=== PATIENT | female | born 1990 | race Caucasian/White ===

== ENCOUNTER 2019-12-11 16:52 | Emergency (ER) | payer OTHER, SELFPAY ==
[2019-12-11 17:00] VITALS: BP 123/71; PULSE 89; RESP 16; TEMP 36.8; O2SAT 98
--- NOTE | 2019-12-11 17:56 | ED.GENADULT ---
HPI - General Adult General Chief complaint: Skin/Abscess/Foreign Body Stated complaint: sore on left arm Time Seen by Provider: 12/11/19 17:56 Source: patient and RN notes reviewed Mode of arrival: ambulatory Limitations: no limitations History of Present Illness HPI narrative: 29-year-old female presents with complaints of a sore to LT forearm with itching, redness, warmth, tenderness, and swelling for 1 day. Intermittent clear drainage earlier, none currently. Increase redness and warmth over the past 10 hours. Benadryl topical with no relief. Denies radiation of tenderness or swelling. Rossy says redness has extended into inner forearm over the past 10 hours. RT hand is dominant hand. Exacerbating factor consist of palpation of area. Denies open areas. Denies fever or chills. Denies diaherra, nausea, vomiting, and abdominal pain. Tolerating po intake well. Denies headaches, weakness, fatigue, myalgia, or facial swelling. Denies chest pain or dyspnea. Denies cough, rhinorrhea, congestion, sore throat. Denies recent traveling. Denies concern for COVID-19 or exposures been home since [id number] order except for essential household needs, working, and return home. Some parts of this dictation were generated by voice recognition software and may contain typographical and/or grammatical inaccuracies. Related Data Allergies Allergy/AdvReac Type Severity Reaction Status Date / Time No Known Allergies Allergy Unverified 01/16/19 18:29 Review of Systems Review of Systems: Narrative: CONSTITUTIONAL: Denies fever, chills, sweats. EYES: Denies visual changes, redness, discharge. ENT: Denies rhinorrhea, congestion, sore throat, otalgia. CARDIOVASCULAR: Denies chest pain, palpitations, edema. RESPIRATORY: Denies dyspnea, wheezing, cough. GASTROINTESTINAL: Denies abdominal pain, nausea, vomiting, diarrhea. GENITOURINARY: Denies dysuria, hematuria, abnormal discharge. SKIN: Complains of a sore to LT lower forearm with itching, redness, warmth, tenderness, and swelling. Denies open areas or drainage. MUSCULOSKELETAL: Denies acute back pain, joint pain, or myalgia. NEUROLOGIC: Denies numbness or focal weakness. PSYCHIATRIC: Denies anxiety or depression. All systems reviewed & are unremarkable except as noted in HPI and below. PMFSH Past Medical History Medical History (Updated 12/12/19 @ 00:00 by Urszula Casper) delivery delivered Surgical History Surgical History (Updated 12/11/19 @ 18:32 by OMAR Beltran) H/O section X1 Family History Family History (Updated 12/11/19 @ 18:33 by OMAR Beltran) Father Diabetes mellitus Mother Alive and well Social History Social History (Updated 12/11/19 @ 18:33 by OMAR Beltran) Smoking status: Never smoker Second hand tobacco smoke exposure: Yes Alcohol intake: current Substance use: never Living arrangements: with family Occupation/Education: occupation Gender identity (if verbalized by the patient): Female Comments At time of signature, agree with nurse past medical, surgical, social, and family history. There is no relevant family history pertinent to the presenting complaint. Exam Narrative: Exam Narrative: GENERAL: This is a well-nourished, well-developed patient, in no apparent distress. HEAD: normocephalic, atraumatic. EYES: PERRL. Sclera clear/white. Vision is grossly intact. CARDIOVASCULAR: Regular rate and rhythm without murmurs, gallops, or rubs. RESPIRATORY: Clear to auscultation. Breath sounds equal bilaterally. No wheezes, rales, or rhonchi. GASTROINTESTINAL: Abdomen soft, non-tender, nondistended. Bowel sounds are active. No hepato-splenomegaly, or palpable masses. No guarding. SKIN: warm, left lower posterior forearm with 0.4cm scabbed over area with mild-moderate erythema and warmth, no fluctuation, I&D not necessary at this time. 6.5cm by 8cm surrounding Cellulitis streaking into
== END 2019-12-11 18:10 | disposition home or self-care (01) ==
PROVIDERS: Emergency Provider Nurse Practitioner Family; PCP Nurse Practitioner Family
DX: S50.862A Insect bite (nonvenomous) of left forearm, initial encounter (principal); L03.114 Cellulitis of left upper limb; W57.XXXA Bitten or stung by nonvenomous insect and other nonvenomous arthropods, initial encounter
CPT/HCPCS: 99213; G0463

== ENCOUNTER 2021-03-03 11:02 | Emergency (ER) | payer OTHER, SELFPAY ==
[2021-03-03 11:10] VITALS: BP 141/79; PULSE 100; RESP 18; TEMP 36.5; O2SAT 100
--- NOTE | 2021-03-03 11:24 | ED.URI ---
HPI - URI/Sore Throat General Chief Complaint: Upper Respiratory Infection Stated Complaint: sore throat Time Seen by Provider: 03/03/21 11:24 Source: patient History of Present Illness HPI Narrative: woke up with sore throat today. no trouble swallowing. MD elicited complaint: sore throat Related Data Allergies Allergy/AdvReac Type Severity Reaction Status Date / Time No Known Allergies Allergy Verified 03/03/21 11:39 Review of Systems Review of Systems: CONSTITUTIONAL: Denies fever, chills, or sweats. EYES: Denies visual changes, redness, or discharge. ENT: Denies rhinorrhea, congestion, sore throat, or otalgia. CARDIOVASCULAR: Denies chest pain, palpitations, or edema. RESPIRATORY: Denies cough or dyspnea. GASTROINTESTINAL: Denies abdominal pain, nausea, vomiting, or diarrhea. GENITOURINARY: Denies dysuria or hematuria. SKIN: Denies rash or itching. MUSCULOSKELETAL: Denies back pain, joint pain, or myalgia. NEUROLOGIC: Denies headache, numbness, or weakness. PSYCHIATRIC: Denies anxiety or depression. [facility] Past Medical History Medical History (Updated 03/03/21 @ 11:27 by OMAR Rolon) delivery delivered Surgical History Surgical History (Updated 12/11/19 @ 18:32 by OMAR Beltran) H/O section X1 Family History Family History (Updated 12/11/19 @ 18:33 by OMAR Beltran) Father Diabetes mellitus Mother Alive and well Social History Social History (Updated 12/11/19 @ 18:33 by OMAR Beltran) Smoking status: Never smoker Second hand tobacco smoke exposure: Yes Alcohol intake: current Substance use: never Gender identity (if verbalized by the patient): Female Comments At time of signature, agree with nursing past medical, surgical, social and family history. There is no relevant family history pertinent to the presenting complaint Exam Narrative: GENERAL: Well-appearing, well-nourished, and in no acute distress. HEAD: Normocephalic, atraumatic. EYES: PERRLA and EOMI. ENT: Nares clear, no rhinorrhea or epistaxis. Mucous membranes moist. NECK: Supple. CHEST: Clear to auscultation. No respiratory distress. HEART: Regular rate and rhythm. No murmur heard. Normal peripheral pulses. ABDOMEN: Soft, nontender, nondistended, normal active bowel sounds. EXTREMITIES: Normal range of motion. No edema. SKIN: Warm, dry, no rash. NEURO: No focal deficits. Alert and oriented x3. [place] Coma Scale Eye Opening: Spontaneous 4 [place] Coma Scale Motor: Obeys Commands 6 [place] Coma Scale Verbal: Oriented 5 [place] Coma Scale Total 15 Course Vital Signs Vital signs: Vital Signs Temperature 36.5 C 03/03/21 11:10 Pulse Rate 100 03/03/21 11:10 Respiratory Rate 18 03/03/21 11:10 Blood Pressure 141/79 H 03/03/21 11:10 Pulse Oximetry 100 03/03/21 11:10 Temperature 36.5 C 03/03/21 11:10 Pulse Rate 100 03/03/21 11:10 Respiratory Rate 18 03/03/21 11:10 Blood Pressure 141/79 H 03/03/21 11:10 Pulse Oximetry 100 03/03/21 11:10 MDM - URI/Sore Throat Differential Diagnosis Differential diagnosis: Likely upper respiratory infection, croup, otitis media, sinusitis, viral infection, bronchitis, influenza and pharyngitis Medical Records Attestation: I reviewed the patient's medical records. Lab Data Attestation: I reviewed the patient's lab results. Labs: Strep Screen Positive Group A Strep *(Reference Range: Negative)* Critical Care Time Critical Care Time Critical Care Time: No Discharge Plan Discharge Clinical Impression: Pharyngitis Patient Disposition: Home, Self-Care Condition: Stable Instructions: Antibiotic Form, Pharyngitis (ED) Additional Instructions: Increase fluids especially juices and water [id number] cough and cold medicine of your choice for your symptoms Salt water gargles, throat lozenges or throat sprays as daquan
== END 2021-03-03 11:45 | disposition home or self-care (01) ==
PROVIDERS: Emergency Provider Nurse Practitioner Family; PCP Nurse Practitioner Family
DX: J02.9 Acute pharyngitis, unspecified (principal)
CPT/HCPCS: 87880; 99213; G0463

== ENCOUNTER 2021-04-04 15:38 | Outpatient (CLI) | payer OTHER, SELFPAY ==
[2021-04-04 19:27] LABS: Basophils Percent Auto 0.4 % (0.2-1.2); Eosinophils Absolute Auto 0.1 K/mm3 (0-0.3); Eosinophils Percent Auto 0.8 % (0-4.4); Hematocrit 36.6 % (37.0-47.0); Hemoglobin 12.5 g/dL (12.0-15.0); Immature Granulocyte Absolute 0.02 K/mm3 (0.00-0.031); Immature Granulocyte Percent A 0.3 % (0-0.5); Lymphocytes Absolute Auto 2.55 K/mm3 (0.9-3.2); Lymphocytes Percent Auto 33.1 % (18.3-44.2); Mean Corpuscular HGB Conc 34.2 g/dl (32-36); Mean Corpuscular Hemoglobin 29.4 pg (26-34); Mean Corpuscular Volume 86.1 fl (80-100); Mean Platelet Volume 10.2 fl (7.4-10.4); Monocytes Absolute Auto 0.7 K/mm3 (0.1-0.6); Monocytes Percent Auto 9.4 % (2.6-8.5); Neutrophils Absolute Auto 4.3 K/mm3 (1.3-6.7); Platelet Count Result 341 k/mm3 (150-375); Red Blood Count 4.25 M/mm3 (4.2-5.4); White Blood Count 7.7 K/mm3 (4.5-10.0)
[2021-04-04 19:39] LABS: Add Urine Microscopic? YES; Appearance Urine Clear (Clear); Bacteria Urine Trace /hpf; Bilirubin Urine Negative (Negative); Blood Urine Negative (Negative); Color Urine Yellow (Yellow); Glucose Urine UA Negative (Negative); Ketones Urine Negative (Negative); Leukocyte Esterase Ur Negative LEU/UL (NEGATIVE); Mucus Urine Rare /lpf; Nitrate Urine Negative (Negative); Protein Urine Negative (Negative); Specific Grav Ur 1.027 (1.001-1.035); Squamous Epithelial Cell Urine Many /hpf (Few); WBC Urine 0-3 /hpf (0-3)
[2021-04-04 20:32] LABS: Hepatitis B Surface Antigen Negative (Negative)
[2021-04-04 20:42] LABS: HIV 1/2 Ab P24 Ag Result Negative (Negative)
[2021-04-04 20:49] LABS: Hepatitis C Virus Antibody Negative (Negative)
[2021-04-06 10:40] LABS: Rapid Plasma Reagin Non-Reactive (NonReactive)
[2021-04-08 16:14] LABS: Hematocrit 37.7 % (35.0-45.0); Hemoglobin 12.7 g/dL (11.7-15.5); MCH 30.6 pg (27.0-33.0); MCV 90.5 fL (80.0-100.0); RDW 13.1 % (11.0-15.0); Red Blood Cell Count 4.17 Mill/uL (3.80-5.10)
== END 2021-04-04 15:39 | disposition home or self-care (01) ==
LOC: ANHBWCLAB 15:39
PROVIDERS: PCP Nurse Practitioner Family; Visit Provider Obstetrics & Gynecology
DX: Z34.90 Encounter for supervision of normal pregnancy, unspecified, unspecified trimester (principal)
CPT/HCPCS: 36415; 81001; 83021; 84443; 85025; 86592; 86703; 86787; 86803; 86900; 86901; 87086; 87340; G0432

== ENCOUNTER 2021-04-09 12:26 | Outpatient (CLI) | payer OTHER, SELFPAY ==
[2021-04-09 13:39] LABS: Vitamin D 25 Hydroxy 41.9 ng/mL
[2021-04-09 14:00] LABS: Rubella IgG Antibody 21.1 IU/ML
[2021-04-09] MEDS: RHO(D) IMMUNE GLOBULIN 300 MCG/2 ML SYRINGE IM (16:27)
== END 2021-04-09 12:27 | disposition home or self-care (01) ==
LOC: ANHLAB 12:29
PROVIDERS: PCP Nurse Practitioner Family; Visit Provider Obstetrics & Gynecology
DX: O26.899 Other specified pregnancy related conditions, unspecified trimester (principal); Z67.91 Unspecified blood type, Rh negative; Z3A.00 Weeks of gestation of pregnancy not specified
CPT/HCPCS: 36415; 82306; 85461; 86762; 90384; 96372; J2790

== ENCOUNTER 2021-06-08 10:42 | Outpatient (CLI) | payer OTHER, SELFPAY ==
--- NOTE | ~2021-06-08 | US_ITS ---
EXAMINATION: US OB /maternal detail DATE: 06/08/2021 12:04 INDICATION: Second trimester anatomic survey TECHNIQUE: Real-time ultrasound of the pelvis was performed. COMPARISON: None. FINDINGS: There is a single living fetus in vertex presentation. The placenta is anterior. heart rate is 135 beats per minute (bpm). cardiac activity and movement are noted. The amniotic fluid index is subjectively normal. The following anatomy was identified as normal: 4 chamber heart 3 vessel cord cord insertion kidneys urinary bladder stomach spine diaphragm ventricles cisterna magna cerebellum The following biometric data were obtained: Biparietal diameter (BPD): 5.1 cm; head circumference (HC): 19.5 cm; abdominal circumference (AC): 17 .0 cm; femur length (FL): 3.8 cm. These measurements are concordant. Estimated weight is 466 g +/- 69 g, which correlates with the 66th percentile when 10/15/2021 is used as estimated date of delivery. As single measurements, these parameters are each equal to the following estimated gestational ages w ith ranges of +/- 2 standard deviations: BPD: 21 weeks 4 days +/- 1 weeks 5 days. HC: 21 weeks 5 days +/- 1 weeks 3 days. AC: 22 weeks 0 days +/- 2 weeks 0 days. FL: 22 weeks 1 days +/- 1 weeks 6 days. estimated gestational age based solely on measurements from this exam is 21 weeks 6 days +/- 1 weeks 4 days. IMPRESSION: 1. Single living fetus in vertex presentation. 2. Estimated weight is 466 g +/- 69 g, which correlates with the 66th percentile when 10/15/2021 is used as estimated date of delivery. Reviewed, dictated and finalized at location B. ICAL ACCOUNT MANAGER IMPRESSION: 1. Single living fetus in vertex presentation. 2. Estimated weight is 466 g +/- 69 g, which correlates with the 66th per centile when 10/15/2021 is used as estimated date of delivery.
== END 2021-06-08 10:43 | disposition home or self-care (01) ==
LOC: ANHIMG 10:44
PROVIDERS: PCP Nurse Practitioner Family; Visit Provider Obstetrics & Gynecology
DX: Z34.92 Encounter for supervision of normal pregnancy, unspecified, second trimester (principal); Z3A.21 21 weeks gestation of pregnancy
CPT/HCPCS: 76805

== ENCOUNTER 2021-09-14 15:56 | Outpatient (CLI) | payer OTHER, SELFPAY ==
--- NOTE | ~2021-09-14 | US_ITS ---
EXAMINATION: US OB follow up DATE: 09/14/2021 16:44 INDICATION: Excessive growth during third trimester . TECHNIQUE: Real-time ultrasound of the pelvis was performed. The interpreting radiologist was not pre sent for the study. COMPARISON: 08/08/2020 FINDINGS: There is a single living fetus in vertex presentation. The placenta is anterior. heart rate is 134 beats per minute (bpm). The amniotic fluid index is 17.4 cm, which is normal (5th%-95%: 7.9-24. 9 cm at 35 weeks estimated gestational age). The following biometric data were obtained: BPD: 9.0 cm -> 36 weeks days Head circumference: 433.5 cm -> 38 weeks 2 days Abdominal circumference: 34.3 cm -> 38 weeks 1 days Femur length: 7.1 cm -> 36 weeks 1 days These measurements are concordant. Head circumference to abdominal circumference ratio: 0.98 (normal range 0.91-1.05). Estimated weight: 3235 g (+/-) 485 g or 7 lbs. 2 oz. (+/-) 1 lbs. 1 oz. IMPRESSION: 1. Single living fetus in vertex presentation with heart rate of 134 bpm. 2. Normal amniotic fluid index of 17.4 cm. 3. Estimated weight is 93rd percentile by Hadlock criteria when 10/25/2021 is used as the estima carol date of delivery (LAI). Please correlate with clinical information or earlier ultrasounds for mos t accurate LAI. Reviewed, dictated and finalized at location A. FF EXPERT IMPRESSION: 1. Single living fetus in vertex presentation with heart rate of 134 bpm. 2. Normal amniotic fluid index of 17.4 cm. 3. Estimated weight is 93rd percentile by Hadlock criteria when 10/25/2021 is used as the estimated date of delivery (LAI). Please correlate with clinica l information or earlier ultrasounds for most accurate LAI.
== END 2021-09-14 15:57 | disposition home or self-care (01) ==
LOC: ANHIMG 16:01
PROVIDERS: PCP Nurse Practitioner Family; Visit Provider Obstetrics & Gynecology
DX: O36.60X0 Maternal care for excessive fetal growth, unspecified trimester, not applicable or unspecified (principal); Z3A.00 Weeks of gestation of pregnancy not specified
CPT/HCPCS: 76816

== ENCOUNTER 2021-10-05 15:38 | Outpatient (CLI) | payer OTHER, SELFPAY | END 2021-10-05 17:00 | disposition home or self-care (01) | LOC: ANHOBOP 16:47 | PROVIDERS: PCP Nurse Practitioner Family; Visit Provider Obstetrics & Gynecology | DX: O41.93X3 Disorder of amniotic fluid and membranes, unspecified, third trimester, fetus 3 (principal); Z3A.39 39 weeks gestation of pregnancy | CPT/HCPCS: 84112 ==

== ENCOUNTER 2021-10-08 06:20 | Inpatient (IN) | payer OTHER, SELFPAY ==
[2021-10-08] VITALS (195 sets, daily range): BP systolic 76–154; BP diastolic 44–129; PULSE 74–144; RESP 16; TEMP 36.2–39; O2SAT 77–100; BMI 36.9
--- NOTE | 2021-10-08 06:20 | LDADM ---
This patient, Rossy Barbosa, was admitted to Labor/Delivery/Recovery 102 on 10/08/21 at 06:20. Plans for labor, pain management and were discussed with patient. Patient/family oriented to hospital policies and general routines including ID bracelet, bed and alarms, visiting hours, pain management, procedures, bathroom and other care routines, personal items, smoking policy, room service/diet and guest tray routines, security routines, and visiting hours. Patient/Family are encouraged to report perceived risks to care and to ask questions if they do not understand what they are told or what they should do. See OBIX for further documentation.
[2021-10-08] MEDS: LACTATED RINGERS 1,000 ML 125 ML IV CONT ×3 (07:02→11:36)
[2021-10-08 07:03] LABS: Basophils Absolute Auto 0.1 K/mm3 (0.0-0.1); Basophils Percent Auto 0.5 % (0.2-1.2); Eosinophils Absolute Auto 0.1 K/mm3 (0-0.3); Eosinophils Percent Auto 0.9 % (0-4.4); Hematocrit 35.4 % (37.0-47.0); Hemoglobin 11.9 g/dL (12.0-15.0); Immature Granulocyte Absolute 0.04 K/mm3 (0.00-0.031); Immature Granulocyte Percent A 0.4 % (0-0.5); Lymphocytes Absolute Auto 3.36 K/mm3 (0.9-3.2); Lymphocytes Percent Auto 32.7 % (18.3-44.2); Mean Corpuscular HGB Conc 33.6 g/dl (32-36); Mean Corpuscular Hemoglobin 28.1 pg (26-34); Mean Corpuscular Volume 83.7 fl (80-100); Mean Platelet Volume 10.5 fl (7.4-10.4); Monocytes Percent Auto 9.7 % (2.6-8.5); Neutrophils Absolute Auto 5.7 K/mm3 (1.3-6.7); Neutrophils Percent Auto 55.8 % (45.5-73.1); Platelet Count Result 393 k/mm3 (150-375); Red Blood Count 4.23 M/mm3 (4.2-5.4); Red Cell Distribution Width 12.9 % (11.5-14.5); White Blood Count 10.3 K/mm3 (4.5-10.0)
[2021-10-08] MEDS: OXYTOCIN 30 UNITS/NS 500 ML 30 UNITS/500 ML BAG IV CONT (07:03)
--- NOTE | 2021-10-08 08:00 | WPDOBADMIT ---
Obstetrics - Admit Note Admission Note: record reviewed. No pertinent additions to the history and/or any subsequent changes in the physical findings that are not consistent with the expected course of the were found. Additions to the history and/or subsequent changes in the physical findings follow. at 39+0 for induction of labor for TOLAC. She had one C/S due to breech and one successful in past. Cervix 3/50/-2. AROM with clear fluid and IUPC placed easily. Continue pitocin.
--- NOTE | 2021-10-08 09:10 | WPDANESEPPF ---
Anes - Initial Pre Proc Eval Procedure: labor epidural Date/Time: 10/08/21 09:10 Surgeon: Mag Chung MD Pre Op Diagnosis: labor pain Pre Op Diagnosis: Induction of Labor Patient Data Age: 30 Gender: F Height: 1.7 m Weight: 107 kg Last Vital Signs Temp 36.7 C 10/08/21 09:09 Pulse 83 10/08/21 09:10 BP 91/58 L 10/08/21 09:10 Pulse Ox 99 10/08/21 09:07 Allergies Allergy/AdvReac Type Severity Reaction Status Date / Time No Known Allergies Allergy Verified 10/08/21 06:47 Laboratory Tests 10/08/21 10/08/21 10/08/21 06:51 06:51 06:51 WBC 10.3 K/mm3 H K/mm3 (4.5-10.0) RBC 4.23 M/mm3 M/mm3 (4.2-5.4) Hgb 11.9 g/dL L g/dL (12.0-15.0) Hct 35.4 % L % (37.0-47.0) MCV 83.7 fl fl (80-100) MCH 28.1 pg pg (26-34) MCHC 33.6 g/dl g/dl (32-36) RDW 12.9 % % (11.5-14.5) Plt Count 393 k/mm3 H k/mm3 (150-375) MPV 10.5 fl H fl (7.4-10.4) Immature Gran % (Auto) 0.4 % % (0-0.5) Neut % (Auto) 55.8 % % (45.5-73.1) Lymph % (Auto) 32.7 % % (18.3-44.2) [place] % (Auto) 9.7 % H % (2.6-8.5) Eos % (Auto) 0.9 % % (0-4.4) Baso % (Auto) 0.5 % % (0.2-1.2) Lymph # (Auto) 3.36 K/mm3 H K/mm3 (0.9-3.2) [place] # (Auto) 1.0 K/mm3 H K/mm3 (0.1-0.6) Eos # (Auto) 0.1 K/mm3 K/mm3 (0-0.3) Baso # (Auto) 0.1 K/mm3 K/mm3 (0.0-0.1) Abs Immat Gran (auto) 0.04 K/mm3 H K/mm3 (0.00-0.031) Absolute Neuts (auto) 5.7 K/mm3 K/mm3 (1.3-6.7) Absolute Nucleated RBC 0.0 K/mm3 K/mm3 (0.0-0.012) Nucleated RBC % 0.0 % % (0.0-0.2) RPR Pending Blood Type A Negative Antibody Screen Negative Patient hx anesthesia problems: none Family hx anesthesia problems: none Results Review: All pre-operative results and documents have been reviewed as part of the pre-operative evaluation. [facility] Past Medical History Medical History (vaginal after ) x1 Surgical History Surgical History H/O section X1 [place] teeth removed Family History Family History Father Diabetes mellitus Mother Alive and well Social History Social History Smoking status: Never smoker Second hand tobacco smoke exposure: Yes Alcohol intake: current Substance use: never Gender identity (if verbalized by the patient): Female Spiritual care concerns: No Anes - Eval Final PreProcedure Day of Procedure 10/08/21 09:10 Patient weight: obese ASA classification: II Anesthetic plan: proceed Anesthesia type and monitoring: regional epidural and standard monitoring Results Review: All pre-operative results and documents have been reviewed as part of the pre-operative evaluation. Informed Consent: The patient's anesthetic plan and its attendant risks and benefits were discussed with the patient/family/POA. Questions were solicited and answers provided to the satisfaction of the patient/family/POA.
[2021-10-08] MEDS: LORATADINE 10 MG TABLET PO (11:57)
--- NOTE | 2021-10-08 16:02 | PM.OBPRVD ---
OB - Delivery Note Procedure Delivery date: 10/08/21 Procedure: Events: Previous Delivery Induction method: AROM and Per Pitocin Protocol Delivery monitor: External FHT and Internal Uterine Route of delivery: Prior to decision for section, ACOG/SMFM labor guidelines were considered and discussed with the patient and staff. Decision made to proceed with the section.: No Anesthesia type: Epidural Disposition: Floor [place] Baby Date of : 10/08/21 Weeks of gestation at delivery: 39 presentation: vertex
[2021-10-08] MEDS: LIDOCAINE HCL 1% LOCAL INJ 10 ML VIAL (17:37)
--- NOTE | 2021-10-08 17:49 | PM.OBPRVD ---
OB - Delivery Note Procedure Delivery date: 10/08/21 Procedure: Events: Previous Delivery Induction method: AROM and Per Pitocin Protocol Delivery monitor: External FHT and Internal Uterine Route of delivery: Prior to decision for section, ACOG/SMFM labor guidelines were considered and discussed with the patient and staff. Decision made to proceed with the section.: No Laceration Description: Perineal - 1st Degree Delivery repair: vicryl (3-0) Specimen: No Quantitative Blood Loss (ml): 358 Anesthesia type: Local Disposition: Floor Complications: Shoulder dystocia: 60 seconds from delivery of head to delivery of entire infant. Right hand was near face at time of delivery of head, so posterior (right) arm flexed against chest and delivered, then left arm delivered in similar fashion, then remainder of body delivered with maternal pushing effort Baby Date of : 10/08/21 Weeks of gestation at delivery: 39 Infant gender: Male Weight (pounds): 9 Weight (ounces): 14 presentation: vertex position: Right Occiput Anterior (with compound presentation with right hand next to face) Placenta delivery description: Spontaneous Cord Vessel Description: Nuchal Cord, Loose, Reduced and Clamped/Cut score one minute: 6 score five minutes: 9
[2021-10-08] MEDS: OXYTOCIN 30 UNITS/NS 500 ML 30 UNITS/500 ML BAG 125 UNITS IV CONT (17:58)
[2021-10-08] MEDS: IBUPROFEN 600 MG TABLET PO (18:18)
[2021-10-08] MEDS: WITCH HAZEL 40 PADS 1 PAD TOPICAL (18:23)
[2021-10-08] MEDS: BENZOCAINE 20% AER SPR (*SP) 56 GM CAN 1 SPRAY TOPICAL (18:23)
--- NOTE | 2021-10-08 20:10 | OBPPTRN ---
Patient transferred to post room # 292 via wheelchair. Support person present. Oriented to unit, room, information board, rooming in, admission packet and security measures. Patient verbalizes understanding.
[2021-10-08] MEDS: ACETAMINOPHEN 325 MG TABLET 650 MG PO (21:10)
[2021-10-09] MEDS: IBUPROFEN 600 MG TABLET PO ×4 (01:26→21:35)
--- NOTE | 2021-10-09 01:43 | PC.NURSE ---
All charting done on this patient from 2014 on 10/08 until this point was charted under Heather Ricardo but was actually documented by Kari Medellin
[2021-10-09 03:45] VITALS: BP 113/71; PULSE 89; RESP 16; TEMP 36.6; O2SAT 98
[2021-10-09] MEDS: ACETAMINOPHEN 325 MG TABLET 650 MG PO ×3 (03:49→18:43)
[2021-10-09 04:34] LABS: Hematocrit 31.1 % (37.0-47.0); Hemoglobin 10.2 g/dL (12.0-15.0)
--- NOTE | 2021-10-09 08:07 | PM.OBPNVD ---
OB - PN: Subj Subjective Date/time seen: 10/09/21 08:07 Patient comments: no complaints, pain well controlled and other (Lochia similar to menses) [place] baby status: doing well OB - PN: Obj Data Labs CBC & Chem 7: 10/09/21 03:56 Labs: Laboratory Results - last 24 hr 10/08/21 10/09/21 06:51 03:56 Hgb 10.2 L Hct 31.1 L Blood Type A Negative Antibody Screen Negative OB - PN A/P Assessment and Plan (1) Encounter for sterilization: Code(s): Z30.2 - Encounter for sterilization Status: Acute Assessment and Plan: She would like tubal ligation but declined it for today, so we'll keep her npo after midnight tonight and plan for PP BTL tomorrow Plan day: 1 (s/p vaginal delivery (), doing well) Plan: routine care Time Spent With Patient Time: Total time spent is greater than 50% in coordination of care (as documented) at patient's floor/unit and/or counseling patient: Time with patient: less than 15 minutes Exam Const: General: no acute distress GI: Inspection: other (Fundus firm and nontender at umbilicus) GI Palp: Yes Soft to palpation and No Tenderness to palpation present (GI) Extrem: General: no edema
[2021-10-09 08:47] LABS: Rapid Plasma Reagin Non-Reactive (NonReactive)
[2021-10-09 08:50] VITALS: BP 115/53; PULSE 92; RESP 18; TEMP 36.6; O2SAT 100
[2021-10-09] MEDS: DOCUSATE SODIUM 100 MG CAPSULE PO ×2 (09:50→15:52)
--- NOTE | 2021-10-09 11:00 | WPDANLDPN2 ---
Anes-Prog Note L&D Date/Time: 10/09/21 11:00 Comfortable throughout: labor and delivery Neuraxial method: epidural Epidural/Spinal procedure site: clean & non-tender Neuro status: Neuro function grossly intact. Cardiovascular status: normal Respiratory status: normal Airway patency: baseline Mental status: baseline Post-Op hydration status: normal Vital Signs: Last Vital Signs Temp 36.6 C 10/09/21 08:50 Pulse 92 10/09/21 08:50 Resp 18 10/09/21 08:50 BP 115/53 L 10/09/21 08:50 Pulse Ox 100 10/09/21 08:50 Pain score (VAS): 08/06 I/O: Intake & Output 10/08/21 10/09/21 10/09/21 23:59 07:59 15:59 Intake Total 500 Output Total 471 Balance 29 Post-procedural complaints: none Patient feedback: Patient satisfied with anesthetic care.
[2021-10-09 11:48] VITALS: BP 117/66; PULSE 91; RESP 16; TEMP 36.9; O2SAT 99
--- NOTE | 2021-10-09 13:23 | PC.NURSE ---
0735 - Introductions made and consulted mother on her desires to feed her baby since it had been reported that she had attempted to breastfeed. Mother states she is going to bottle feed.
[2021-10-09 16:40] VITALS: BP 125/71; PULSE 94; RESP 16; TEMP 36.5; O2SAT 100
[2021-10-09 19:00] VITALS: BP 111/65; PULSE 86; RESP 18; TEMP 36.9; O2SAT 100
[2021-10-10] VITALS (8 sets, daily range): BP systolic 109–131; BP diastolic 65–89; PULSE 76–101; RESP 12–20; TEMP 36.2–37.2; O2SAT 97–100
[2021-10-10] MEDS: ACETAMINOPHEN 325 MG TABLET 650 MG PO (01:03)
[2021-10-10] MEDS: IBUPROFEN 600 MG TABLET PO ×2 (05:37→11:31)
--- NOTE | 2021-10-10 07:00 | PC.NURSE ---
PT introductions made and plan of care discussed per post , bottle feeding, daily care activities, PP BTL and pending discharge to home. PT and significant both recipients of such instructions and no barriers to learning identified. PT received instructions via one to one discussion, mom baby care guide book and demonstrations this shift. PT verbalized understanding of such instructions. Signed consent. PT appears tearful and anxious. Upon questioning and discussing BTL, PT verbalized no hesitation regarding sterilization, but was anxious about surgery. PT allowed to ask questions and assured pt anesthesia and Dr Chung would answer questions as well.
--- NOTE | 2021-10-10 07:12 | P.PNAN_ITS ---
Anes - Initial Pre Proc Eval Procedure: Operation Date: 10/10/21 08:30 Proposed Procedures p Post- Tubal Ligation - Mag Chung MD Date/Time: 10/10/21 07:12 Surgeon: Mag Chung MD Pre Op Diagnosis: Induction of Labor Patient Data Age: 30 Gender: F Height: 1.7 m Weight: 107 kg Last Vital Signs Temp 36.9 C 10/09/21 19:00 Pulse 86 10/09/21 19:00 Resp 18 10/09/21 19:00 BP 111/65 10/09/21 19:00 Pulse Ox 100 10/09/21 19:00 Allergies Allergy/AdvReac Type Severity Reaction Status Date / Time No Known Allergies Allergy Verified 10/08/21 06:47 Home Medications Medication Instructions Recorded Confirmed Type No Home Medications 10/08/21 10/08/21 History Laboratory Tests 10/08/21 06:51 RPR Non-reactive (NonReactive) Patient hx anesthesia problems: none Family hx anesthesia problems: none Results Review: All pre-operative results and documents have been reviewed as part of the pre-operative evaluation. [facility] Past Medical History Medical History (vaginal after ) x1 Surgical History Surgical History H/O section X1 [place] teeth removed Family History Family History Father Diabetes mellitus Mother Alive and well Social History Social History (Updated 10/08/21 @ 12:05 by Isha Freed RN) Smoking status: Never smoker Second hand tobacco smoke exposure: Yes Alcohol intake: former Substance use: never Gender identity (if verbalized by the patient): Female Spiritual care concerns: No Anes - Eval Final PreProcedure Day of Procedure 10/10/21 07:12 Patient weight: obese Heart: regular rate and rhythm Lungs: clear to auscultation and normal air movement Airway: Mallampati scale class 1 Neurological: alert and oriented Last oral intake: >/= 8 hours ASA classification: II Emergent: no Anesthetic plan: proceed Anesthesia type and monitoring: general ETT and standard monitoring Results Review: All pre-operative results and documents have been reviewed as part of the pre-operative evaluation. Informed Consent: The patient's anesthetic plan and its attendant risks and benefits were discussed with the patient/family/POA. Questions were solicited and answers provided to the satisfaction of the patient/family/POA.
--- NOTE | 2021-10-10 07:35 | PC.NURSE ---
PT to OR via stretcher and report given to preop nurse via phone.
[2021-10-10] MEDS: LACTATED RINGERS 1,000 ML 30 ML IV CONT (07:56)
--- NOTE | 2021-10-10 08:19 | P.HP_ITS ---
H&P: HPI History of Present Illness Date/Time: 10/10/21 08:19 s/p 10/08 who desires sterilization. No complaints today Chief Complaint: desires sterilization Review of Systems Review of Systems: All systems reviewed & are unremarkable except as noted in HPI and below PMFSH Past Medical History Medical History (vaginal after ) x1 Surgical History Surgical History H/O section X1 [place] teeth removed Family History Family History Father Diabetes mellitus Mother Alive and well Social History Social History (Updated 10/08/21 @ 12:05 by Isha Freed RN) Smoking status: Never smoker Second hand tobacco smoke exposure: Yes Alcohol intake: former Substance use: never Gender identity (if verbalized by the patient): Female Spiritual care concerns: No Meds Home Medications and Allergies Home Medications Medication Instructions Recorded Confirmed Type No Home Medications 10/08/21 10/08/21 History Allergies Allergy/AdvReac Type Severity Reaction Status Date / Time No Known Allergies Allergy Verified 10/08/21 06:47 Vital Signs Vital Signs - 24 hr 10/09/21 08:50 10/09/21 11:48 10/09/21 16:40 Temperature 36.6 C 36.9 C 36.5 C Pulse Rate 92 91 94 Respiratory Rate 18 16 16 Blood Pressure 115/53 L 117/66 125/71 Pulse Oximetry 100 99 100 10/09/21 19:00 10/10/21 07:00 10/10/21 07:38 Temperature 36.9 C 36.6 C 37.2 C Pulse Rate 86 87 87 Respiratory Rate 18 20 16 Blood Pressure 111/65 129/89 131/72 Pulse Oximetry 100 100 99 Exam Const: General: healthy appearing, no acute distress, alert and awake Resp: Auscultation: clear to auscultation bilaterally Cardio: Rate: regular rate Rhythm: regular rhythm GI: Inspection: non-distended GI Palp: Yes Soft to palpation, No Tenderness to palpation present (GI) and Yes Other GI palpation findings present (Fundus firm and nontender 2 cm below umbilicus) Extrem: General: no pedal edema and no calf tenderness Psych: Mental Status: mental status grossly normal Assessment and Plan Assessment and plan (1) Encounter for sterilization: Code(s): Z30.2 - Encounter for sterilization Status: Acute Assessment and Plan: She signed consent after risks, benefits, complications, and alternatives discussed for bilateral tubal ligation. She expressed understanding and wishes to proceed.
--- NOTE | 2021-10-10 08:19 | WPDHPUPDATE1 ---
History and Physical Update Update Date/Time: 10/10/21 08:19 History and Physical has been reviewed, including an updated exam of the patient. There are NO changes in the patient's condition. Risks, benefits, and alternatives have been discussed and questions answered. Patient agrees to proceed with procedure.
--- NOTE | 2021-10-10 08:22 | P.PNOB_ITS ---
OB - PN: Subj Subjective Date/time seen: 10/10/21 08:22 Patient comments: no complaints, pain well controlled and other (Lochia similar to menses) [place] baby status: doing well OB - PN: Obj Data Labs CBC & Chem 7: 10/09/21 03:56 Labs: Laboratory Results - last 24 hr 10/08/21 06:51 RPR Non-reactive OB - PN A/P Plan day: 2 (s/p vaginal delivery, doing well) Plan: routine care, discharge home and other (Follow up in office in 4 weeks) Time Spent With Patient Time: Total time spent is greater than 50% in coordination of care (as documented) at patient's floor/unit and/or counseling patient: Exam Const: General: no acute distress GI: Inspection: other (Fundus firm and nontender below umbilicus) GI Palp: Yes Soft to palpation and No Tenderness to palpation present (GI) Extrem: General: no edema
--- NOTE | 2021-10-10 08:30 | PM.OBDSVD ---
DS: Admitting Diagnosis Discharge Date 10/10/2021 Admitting Diagnosis Full term , induction of labor, previous c section DS: Discharge Diagnosis Discharge Diagnosis (1) , delivered, current hospitalization: Code(s): O34.219 - Maternal care for unspecified type scar from previous delivery Status: Acute (2) Encounter for sterilization: Code(s): Z30.2 - Encounter for sterilization Status: Acute OB - DS: Summary OB Procedures : None OB Procedures Intrapartum: OB Procedures: : P.P. tubal ligation Peripartum Data Infant Delivery Method: Natural Vaginal Laceration Description: Perineal - 1st Degree Procedures: Procedures Operation Date: 10/10/21 08:30 <No data on this case meets the specified criteria> complications: none Status at Discharge Functional status at discharge: independent ambulation Overall status at discharge: patient is progressing back to baseline Time Spent with Patient Time attestation: Total time spent providing and/or coordinating discharge services: Time spent: Less than 30 minutes DS: Data Data Completed and Pending Labs on day of discharge: Labs from last 24 hours 10/08/21 06:51 RPR Non-reactive Discharge Plan Discharge Attending physician on discharge: Mag Chung Discharging Clinician: Mag Chung Patient Disposition: Home, Self-Care Activity: may shower and pelvic rest Diet: as tolerated Wound Care Instructions: incision open to air Patient Instructions: Antibiotic Form Stand Alone Forms: General Discharge Information Follow-up/Referrals: Mag Chung MD [Physician] - 1 Week Discharge Medications: New hydrocodone-acetaminophen 5-325 mg Tablet 1 tablet PO Q4H PRN (Reason: Moderate Pain (4-6)) Qty: 20 RF: 0 ibuprofen 600 mg Tablet 600 mg PO Q6H PRN (Reason: Cramping) Qty: 60 RF: 0 Continued No Home Medications RF: 0 Date of admission: 10/08/21 06:20 Primary Care Provider: HazelSona Admitting Provider: Mag Chung Attending physician on admission: Mag Chung Condition: Stable
[2021-10-10] MEDS: BUPIVACAINE/EPINEPHRINE 0.25% 10 ML VIAL 7 ML INFILTRATE (09:15)
--- NOTE | 2021-10-10 09:15 | P.OP_ITS ---
Procedure Note - Detailed Date of Procedure 10/10/21 Pre-op Diagnosis desires sterilization Post-op Diagnosis Same Procedure Performed bilateral tubal ligation Surgeon Mag Chung MD Anesthesia General Indications Desires sterilization, s/p 10/08/2021 Findings normal ovaries and fallopian tubes Description of Procedure She was taken to the operating room where general anesthesia was obtained. She was prepared and draped in the normal sterile fashion in the dorsal supine position. Marcaine was injected infraumbilically. Two Allis clamps were placed on either side of the infraumbilical fold to tent up the skin, and an incision was made between the 2 Allis clamps. The underlying subcutaneous tissue was divided sharply. The fascia was identified and tented up with Allis clamps and entered sharply with the Metzenbaum scissors. The peritoneum was grasped and tented with 2 hemostats and entered sharply with Metzenbaum scissors. Once the peritoneal cavity had been entered, the peritoneal and fascial incisions were extended laterally using the Robert scissors. The fundus was palpated and then the right fallopian tube was palpated and grasped with a [place] clamp. The fallopian tube was followed out to its fimbriated end. The mid isthmic portion of the tube was grasped with a [place] clamp. A defect was made in the mesosalpinx just below the clamp. Two free ties of 0 plain gut were placed on the tube. The intervening segment of tube was excised. Excellent hemostasis was visualized. The left fallopian tube was then identified and the same procedure was performed on the left fallopian tube. Excellent hemostasis was visualized of all operative sites. The fascia was closed using 0 Vicryl in a running fashion. The subcutaneous was tissue was irrigated. Any bleeding points were cauterized. The subcutaneous tissue was reapproximated using 3-0 Vicryl interrupted sutures. The skin was closed using 4-0 Monocryl in subcuticular fashion. She tolerated the procedure well. Sponge, lap, needle, and instrument counts were correct x2. She was taken to the recovery room in stable condition. Estimated Blood Loss 15 Drains No Packing No Pathology Yes Complications No immediate complications Condition Stable Disposition PACU
[2021-10-10] MEDS: fentaNYL CITRATE INJ (*CRX) 100 MCG/2 ML VIAL 25 MCG IV PUSH ×6 (09:45→10:09)
--- NOTE | 2021-10-10 10:30 | PC.NURSE ---
Pt returned from PACU via stretcher and moved to bed with minimal assistance. PT alert and awake and reoriented to room 292 and surroundings.
[2021-10-10] MEDS: SIMETHICONE 80 MG TAB.CHEW PO ×3 (11:32→16:19)
[2021-10-10] MEDS: HYDROcodone/acetaminophen (*CRX) 5-325 MG TABLET 1 TAB PO ×3 (11:32→16:19)
--- NOTE | 2021-10-10 16:00 | PC.NURSE ---
Pt received discharge instructions per protocol and verbalized understanding of such care.
[2021-10-10] MEDS: DOCUSATE SODIUM 100 MG CAPSULE PO (16:19)
[2021-10-10] MEDS: TETANUS,DIPHTHERIA,AC PERTUSSIS ADULT (0.5 ML) BOOSTRIX IM (16:20)
--- NOTE | 2021-10-10 17:00 | PC.NURSE ---
Pt discharged to home ambulatory accompanied by fob and taken to waiting car. Follow up appts confirmed
[2021-10-11 10:28] VITALS: BP 111/63; PULSE 85; RESP 20; TEMP 36.8; O2SAT 99
== END 2021-10-10 17:00 | disposition home or self-care (01) | DRG 541 ==
LOC: ANHLDR 17:39 → ANHOB2 20:39
PROVIDERS: Admitting Provider Obstetrics & Gynecology; PCP Nurse Practitioner Family; Visit Provider Obstetrics & Gynecology
PROC: 0UB70ZZ Excision of Bilateral Fallopian Tubes, Open Approach (ICD-10-PCS; CPT 58605; principal; 2021-10-10 08:30)
DX: O34.211 Maternal care for low transverse scar from previous cesarean delivery (principal); Z37.0 Single live birth; Z3A.39 39 weeks gestation of pregnancy; O32.6XX0 Maternal care for compound presentation, not applicable or unspecified; O66.0 Obstructed labor due to shoulder dystocia; O36.63X0 Maternal care for excessive fetal growth, third trimester, not applicable or unspecified; O36.8330 Maternal care for abnormalities of the fetal heart rate or rhythm, third trimester, not applicable or unspecified; O70.0 First degree perineal laceration during delivery; Z30.2 Encounter for sterilization; Z23 Encounter for immunization
CPT/HCPCS: 36415; 85014; 85018; 85025; 86592; 86850; 86900; 86901; 88302; 90471; 90653; 90715; A9270; G0008; J1100; J2250; J2405; J2590; J2704; J2795; J3010; J7120

== ENCOUNTER 2022-01-27 09:51 | Emergency (ER) | payer OTHER, SELFPAY ==
[2022-01-27 09:56] VITALS: BP 148/72; PULSE 98; RESP 14; TEMP 36.7; O2SAT 98
--- NOTE | 2022-01-27 10:05 | ED.ABDPAIN ---
HPI - Abdominal Pain General Chief Complaint: Abdominal Pain Stated Complaint: Abdominal Pain Time Seen by Provider: 01/27/22 10:15 Source: patient and RN notes reviewed Mode of arrival: ambulatory Limitations: no limitations History of Present Illness HPI narrative: 31-year-old female presented for complaint of epigastric abd pain, body aches and chills since yesterday. Endorses mild nausea and did not eat much yesterday. She is almost 4 months , not breast-feeding. States she is concerned about an ectopic , however she had a tubal ligation 09/2021. LMP 2016. Denies vaginal bleeding, discharge, or urinary complaints, flank pain, vomiting, diarrhea, fever/chills. Endorses sick contacts. Not boosted for covid. Related Data Home Medications Medication Instructions Recorded Confirmed No Home Medications 01/27/22 01/27/22 Allergies Allergy/AdvReac Type Severity Reaction Status Date / Time No Known Allergies Allergy Verified 01/27/22 10:05 Review of Systems Review of Systems: CONSTITUTIONAL: Reports body aches, chills ENT: Denies rhinorrhea, congestion CARDIOVASCULAR: Denies chest pain, palpitations, or edema. RESPIRATORY: Denies cough or dyspnea. GASTROINTESTINAL: Endorses abdominal pain, nausea, Denies hematochezia, melena, hematemesis, vomiting, diarrhea. GENITOURINARY: Denies dysuria, hematuria, or CVA tenderness. SKIN: Denies rash, itching, or wounds. MUSCULOSKELETAL: Denies joint pain, or myalgia. NEUROLOGIC: Denies headache, numbness, tingling, or weakness. All systems reviewed & are unremarkable except as noted in HPI and below PMFSH Past Medical History Medical History (vaginal after ) x2 Surgical History Surgical History H/O section X1 [place] teeth removed Family History Family History Father Diabetes mellitus Mother Alive and well Social History Social History Smoking status: Never smoker Second hand tobacco smoke exposure: Yes Alcohol intake: former Substance use: never Gender identity (if verbalized by the patient): Female Spiritual care concerns: No Comments At time of signature, I have reviewed and agree with nursing past medical, surgical, social and family history unless otherwise noted. Please see nursing chart for further information. There is no relevant family history pertinent to the presenting complaint Exam Narrative: GENERAL: Well-appearing EYES: EOMI. Conjunctivae normal. ENT: Mucous membranes pink and moist. CHEST: Clear to auscultation. HEART: Regular rate and rhythm. No murmur appreciated. Normal peripheral pulses. ABDOMEN: abd soft, nondistended, normal active bowel sounds. nontender abdomen, No guarding, rebound tenderness, asymmetry SKIN: Warm, dry, no rash. Capillary refill normal. Normal skin turgor. NEURO: No focal deficits. Alert and oriented x3. Course Course Emergency Course: Patient is aware of diagnosis, understands and agrees to treatment plan. Anticipatory guidance given. Patient agrees to follow-up as directed and is aware of reasons to seek care at the emergency department. Portions of this record may have been created with voice recognition software Level of Care: Express Care Visit Vital Signs Vital signs: Vital Signs Temperature 98.1 F 01/27/22 09:56 Pulse Rate 98 01/27/22 09:56 Respiratory Rate 14 01/27/22 09:56 Blood Pressure 148/72 H 01/27/22 09:56 Pulse Oximetry 98 01/27/22 09:56 Oxygen Delivery Room Air 01/27/22 09:56 Temperature 98.1 F 01/27/22 10:06 Pulse Rate 98 01/27/22 10:06 Respiratory Rate 14 01/27/22 10:06 Blood Pressure 148/72 H 01/27/22 10:06 Pulse Oximetry 98 01/27/22 10:06 Oxygen Deliv
[2022-01-27 10:06] VITALS: BP 148/72; PULSE 98; RESP 14; TEMP 36.7; O2SAT 98
== END 2022-01-27 10:43 | disposition home or self-care (01) ==
PROVIDERS: Emergency Provider Nurse Practitioner Family; PCP Nurse Practitioner Family
DX: R10.84 Generalized abdominal pain (principal); Z20.822 Contact with and (suspected) exposure to COVID-19
CPT/HCPCS: 81003; 81025; 87426; 99213; C9803; G0463

== ENCOUNTER 2022-06-19 08:03 | Emergency (ER) | payer OTHER, SELFPAY ==
[2022-06-19 08:08] VITALS: BP 154/96; PULSE 99; RESP 16; TEMP 36.6; O2SAT 100
--- NOTE | 2022-06-19 08:18 | ED.URI ---
HPI - URI/Sore Throat General Chief Complaint: Upper Respiratory Infection Stated Complaint: Runny Nose/Cough/Headache Time Seen by Provider: 06/19/22 08:18 Source: patient, RN notes reviewed and old records reviewed Mode of arrival: ambulatory Limitations: no limitations History of Present Illness HPI Narrative: 31-year-old female who presents to [facility] with complaints of cough, headache, sore throat some runny nose since yesterday morning. Patient has been taking Tylenol and DayQuil for her symptoms. She states cough is nonproductive. She reports her 2 kids and significant other have also been ill, she did take baby to her doctor yesterday was told he has a cold. Patient has been COVID vaccinated and also has had a flu shot patient has had COVID x2 with the last episode July of 2021 MD elicited complaint: cough and sore throat Onset (ago): day(s) (2 of symptoms) Treatments prior to arrival: acetaminophen and other (DayQuil) Related Data Allergies Allergy/AdvReac Type Severity Reaction Status Date / Time No Known Allergies Allergy Verified 06/19/22 08:12 Review of Systems Review of Systems: CONSTITUTIONAL: Denies malaise, chills, sweats, or fever. EYES: Denies visual changes, redness, or discharge. ENT: Reports rhinorrhea, congestion, sinus pain, no otalgia positive sore throat. CARDIOVASCULAR: Denies chest pain, palpitations, or edema. RESPIRATORY: Reports cough.? Denies dyspnea. GASTROINTESTINAL: Denies abdominal pain, nausea, vomiting, diarrhea SKIN: Denies rash or itching. MUSCULOSKELETAL: Denies myalgia. NEUROLOGIC: Report headache. All systems reviewed & are unremarkable except as noted in HPI and below PMFSH Past Medical History Medical History Cholecystitis (vaginal after ) x2 Surgical History Surgical History H/O section X1 [place] teeth removed Family History Family History Father Diabetes mellitus Mother Alive and well Social History Social History Smoking status: Never smoker Second hand tobacco smoke exposure: Yes Alcohol intake: former Substance use: never Gender identity (if verbalized by the patient): Female Spiritual care concerns: No Comments At time of signature, agree with nursing past medical, surgical, social and family history. There is no relevant family history pertinent to the presenting complaint Exam Narrative: GENERAL: Well-appearing, well-nourished, and in no acute distress. HEAD: Normocephalic EYES: PERRLA, conjunctivae clear ENT: Nares clear, turbinates edematous and erythematous, clear discharge. Mucous membranes moist. TM pearly ascencio with dull light reflex bilaterally; no tragal tenderness. Oropharynx erythematous without lesions. Tonsils not enlarged and without exudate, no drooling, no hoarseness, no trismus, uvula midline, some postnasal drainage NECK: Supple. No lymphadenopathy CHEST: Clear to auscultation, breath sounds equal. No wheezing, rhonchi, rales, or stridor. No respiratory distress, speaks in full sentences. Cough SaO2 100% on room air HEART: Regular rate and rhythm. No murmur heard. SKIN: Warm, dry, no rash. NEURO: Alert and oriented x3. PSYCH: Normal mood and affect Course Course Emergency Course: Patient is aware of diagnosis, understands and agrees to treatment plan.? Anticipatory guidance given.? Patient agrees to follow-up as directed and is aware of reasons to seek care at the emergency department. Portions of this record may have been created with voice recognition software Level of Care: Express Care Visit Vital Signs Vital signs: Vital Signs Temperature 36.6 C 06/19/22 08:08 Pulse Rate 99 06/19/22 08:08 Respiratory Rate 16
== END 2022-06-19 09:07 | disposition home or self-care (01) ==
PROVIDERS: Emergency Provider Registered Nurse; PCP Nurse Practitioner Family
DX: J06.9 Acute upper respiratory infection, unspecified (principal)
CPT/HCPCS: 87081; 87880; 99213; G0463

== ENCOUNTER 2023-04-09 15:06 | Emergency (ER) | payer OTHER, SELFPAY ==
--- NOTE | 2023-04-09 15:13 | ED.URI ---
HPI - URI/Sore Throat General Chief Complaint: Upper Respiratory Infection Stated Complaint: Cough/Congestion Source: patient and RN notes reviewed History of Present Illness HPI Narrative: 32 yo F presents to urgent care with complaints of congestion, sinus pressure, and a cough x 2-3 weeks. Pt states she has been taking Dayquil and Nyquil at home with no relief. Denies any fevers, chills, ear pain, sore throat, chest pain, SOB, N/V/D. Related Data Allergies Allergy/AdvReac Type Severity Reaction Status Date / Time No Known Allergies Allergy Verified 04/09/23 15:20 Review of Systems Review of Systems: Pertinent positives and pertinent negatives per HPI. PMFSH Past Medical History Medical History Cholecystitis Prediabetes (vaginal after ) x2 Surgical History Surgical History H/O section X1 H/O tubal ligation [place] teeth removed Family History Family History Father Diabetes mellitus Mother Alive and well Social History Social History (Updated 04/09/23 @ 14:21 by Denise Cárdenas MA) Smoking status: Never smoker Second hand tobacco smoke exposure: Yes Alcohol intake: current Alcohol use details: Rarely Substance use: never Lack of Transportation: No Lack of Food: Never True Current Housing: I Have Housing Concerned About Future Housing: No Difficulty Paying Gas/Electric Bills: No Difficulty Paying for Meds: No Currently Unemployed: No Education: High School Diploma/GED Difficulty w/ Childcare or Family Care: No Living arrangements: with family Occupation/Education: occupation Gender identity (if verbalized by the patient): Female Spiritual care concerns: No Comments At the time of my signature, I reviewed and agree with the nursing past medical, surgical, social, and family history. There is no relevant family history pertinent to the patient complaint. Exam Narrative: GENERAL: This is a well-nourished, well-developed patient, in no apparent distress. HEAD: normocephalic, atraumatic. EYES: Sclera clear/white. Vision is grossly intact. EARS: External ears normal, auditory canals clear and without drainage, TMs normal without perforation. Hearing grossly intact. NOSE: External nose normal with no obvious nasal discharge, nares without redness, no rhinorrhea. THROAT: Mucous membranes moist, posterior pharynx clear. NECK: Neck supple, non-tender without lymphadenopathy, masses or thyromegaly. CARDIOVASCULAR: Regular rate and rhythm without murmurs, gallops, or rubs. RESPIRATORY: Clear to auscultation. Breath sounds equal bilaterally. No wheezes, rales, or rhonchi. SKIN: warm, intact with no suspicious lesions or rash, good texture and turgor. NEURO: awake, alert, and oriented to person, place and time. There were no obvious focal neurologic abnormalities. EXTREMITIES: No clubbing, cyanosis, or edema. No joint tenderness, effusion, or edema noted. BACK: Nontender without deformity or crepitus. No flank tenderness. Course Course Level of Care: Express Care Visit Vital Signs Vital signs: Vital Signs Temperature 97.4 F L 04/09/23 15:19 Pulse Rate 78 04/09/23 15:19 Respiratory Rate 14 04/09/23 15:19 Blood Pressure 136/79 04/09/23 15:19 Pulse Oximetry 100 04/09/23 15:19 Oxygen Delivery Room Air 04/09/23 15:19 Temperature 97.4 F L 04/09/23 15:19 Pulse Rate 78 04/09/23 15:19 Respiratory Rate 14 04/09/23 15:19 Blood Pressure 136/79 04/09/23 15:19 Pulse Oximetry 100 04/09/23 15:19 Oxygen Delivery Room Air 04/09/23 15:19 Reviewed MDM - URI/Sore Throat MDM Narrative Medical decision making narrative: Go to the ER for any new or worsening symptoms. Avoid smoking/second-hand smoke. Continue to take Tylenol or M
[2023-04-09 15:19] VITALS: BP 136/79; PULSE 78; RESP 14; TEMP 36.3; O2SAT 100
== END 2023-04-09 15:32 | disposition home or self-care (01) ==
PROVIDERS: Emergency Provider Nurse Practitioner Family; PCP Nurse Practitioner Family
DX: J32.9 Chronic sinusitis, unspecified (principal); R73.03 Prediabetes
CPT/HCPCS: 99213; G0463

== ENCOUNTER 2023-09-02 17:34 | Emergency (ER) | payer OTHER, SELFPAY ==
[2023-09-02 17:40] VITALS: BP 130/72; PULSE 81; RESP 20; TEMP 36.5; O2SAT 100
--- NOTE | 2023-09-02 18:09 | ED.FEMALEGU ---
HPI - Female Genitourinary General Chief complaint: Urogenital-Female Stated complaint: passing blood clots Time Seen by Provider: 09/02/23 18:11 Source: patient, RN notes reviewed and old records reviewed Mode of arrival: ambulatory Limitations: no limitations History of Present Illness HPI Narrative: 32-year-old female who presents to [facility] with complaints of passing golf sized blood clots for the past 24 hours. Patient reports that she has been having intermittent vaginal bleeding with occasional passing of clots since September of 2021 after delivering her last baby. Patient states that her doctor wanted to put her on control pills to regulate her periods and control her bleeding but she didn't want to. Patient reports that her doctor left and then other physician took over practice and has not done any further follow up since last exam in March of 2023. Patient denies reports had tubal ligation after her last delivery. Patient states she recently had blood work through her primary care with no abnormality noted.Patient denies any fevers or any complaints of pain. MD elicited complaint: vaginal bleeding Onset (ago): year(s) (since 2021 with increase in past 24 hours) Vaginal bleeding: other (clots) Related Data Home Medications Medication Instructions Recorded Confirmed No Home Medications 09/02/23 09/02/23 Allergies Allergy/AdvReac Type Severity Reaction Status Date / Time No Known Allergies Allergy Verified 09/02/23 17:54 Review of Systems Review of Systems: CONSTITUTIONAL: Denies fever, chills, or sweats. CARDIOVASCULAR: Denies chest pain, palpitations, or edema. RESPIRATORY: Denies cough or dyspnea. GASTROINTESTINAL: Denies abdominal pain, nausea, vomiting, or diarrhea. GENITOURINARY: Reports no dysuria, frequency, urgency with urination. Denies flank pain or hematuria. reports passing golf ball sized clots for past 24 hours. SKIN: Denies rash or itching. MUSCULOSKELETAL: Denies back pain or myalgia. Denies CVA tenderness NEUROLOGIC: Denies headache, dizziness or weakness All systems reviewed & are unremarkable except as noted in HPI and below PMFSH Past Medical History Medical History Cholecystitis Prediabetes (vaginal after ) x2 Surgical History Surgical History H/O section X1 H/O tubal ligation [place] teeth removed Family History Family History Father Diabetes mellitus Mother Alive and well Social History Social History (Updated 04/09/23 @ 14:21 by Denise Cárdenas MA) Smoking status: Never smoker Second hand tobacco smoke exposure: Yes Alcohol intake: current Alcohol use details: Rarely Substance use: never Lack of Transportation: No Lack of Food: Never True Current Housing: I Have Housing Concerned About Future Housing: No Difficulty Paying Gas/Electric Bills: No Difficulty Paying for Meds: No Currently Unemployed: No Education: High School Diploma/GED Difficulty w/ Childcare or Family Care: No Living arrangements: with family Occupation/Education: occupation Gender identity (if verbalized by the patient): Female Spiritual care concerns: No Comments At time of signature, agree with nursing past medical, surgical, social and family history. There is no relevant family history pertinent to the presenting complaint Exam Narrative: GENERAL: Well-appearing, well-nourished, and in no acute distress. HEAD: Normocephalic, atraumatic. NECK: Supple. CHEST: Clear to auscultation. No respiratory distress.SAO2 100% on room air HEART: Regular rate and rhythm. No murmur heard. Normal peripheral pulses. ABDOMEN: Soft, nontender, nondistended, normal active bowel sounds. No CVA tenderness, reports no regular menses since 2021 mostly s
== END 2023-09-02 18:49 | disposition home or self-care (01) ==
PROVIDERS: Emergency Provider Registered Nurse; PCP Nurse Practitioner Family
DX: N92.1 Excessive and frequent menstruation with irregular cycle (principal); R73.03 Prediabetes
CPT/HCPCS: 81025; 99212; G0463

== ENCOUNTER 2023-12-18 13:22 | Outpatient (CLI) | payer OTHER, SELFPAY ==
[2023-12-18 13:44] LABS: Hematocrit 35.5 % (37.0-47.0); Hemoglobin 10.7 g/dL (12.0-15.0)
== END 2023-12-18 13:23 | disposition home or self-care (01) ==
LOC: ANHSURGERY 13:26
PROVIDERS: PCP Nurse Practitioner Family; Visit Provider Obstetrics & Gynecology
DX: Z01.818 Encounter for other preprocedural examination (principal); N92.6 Irregular menstruation, unspecified
CPT/HCPCS: 36415; 85014; 85018

== ENCOUNTER 2023-12-26 01:33 | Day surgery (SDC) | payer OTHER, SELFPAY ==
[2023-12-16 09:52] VITALS: BMI 37.5
--- NOTE | 2023-12-16 10:16 | PC.NURSE ---
Report to the Outpatient Waiting Room, entrance under the green pavilion located off [facility], at 0630 on 12-26-23. Planned Procedure Time: 0830. Time changes happen often and if your time is changed the preop area will call you the afternoon before. - You and your visitor will be asked to self-screen and do not enter if you have any COVID symptoms. - A mask is optional within the hospital at this time. Patients may have clear liquids (water, carbonated beverages, clear teas, apple juice) until 3 hours prior to surgery with a maximum of 20 ounces. 0530 - No food from midnight until time of surgery - Infants may have breast milk until 4 hours before surgery, formula 6 hours prior to surgery. - Children will be allowed to drink immediately following surgery. If applicable, please bring a bottle or sippy cup to assist with drinking. Juice, water, soda, and popsicles are readily available. For infants on formula, please bring formula the day of surgery. Pacifiers are allowed. Take the following medications with a SIP of water the morning of surgery: None DO NOT STOP ANY OF YOUR OTHER PRESCRIPTION MEDICATIONS PRIOR TO SURGERY EXCEPT THE FOLLOWING Medications to discontinue per physician: None Please no make-up, nail lao, hairspray, perfume, deodorant, or body powder the day of surgery. No jewelry (including any body piercings) or valuables the day of surgery, leave them at home. Please take a shower or bath the night before, or the morning of, surgery with an antibacterial soap. Wear comfortable, loose fitting clothing. Children are encouraged to wear pajamas. - Jewelry must be removed prior to entering the operating room. Rings and piercings that are not removed may be cut off. - The hospital will not accept responsibility for valuables. - Please leave all valuables, including medications, at home the day of surgery. If you are going home after surgery, a licensed lokie driver must drive you home. - NO public transportation without another adult if you receive anesthesia. - We recommend that an adult stay with you for 24 hours following discharge. - We also recommend that you do not drive, make important decision, drink alcoholic beverages, or take any drugs that were not prescribed by your health care provider for at least 24 hours after your discharge time. For Pediatric surgeries, we recommend two adults accompany the child home. Follow any additional instructions given to you from your surgeon. If you or anyone in your household have experienced Covid symptoms in the past week, please notify your surgeon or the nurse liaison at the phone number below for possible testing. Telephone instructions given to Rossy Barbosa and asked if any additional questions and then verbalized understanding. Patient advised to call surgeon office or pre surgery nurse liaison [phone] if any additional questions.
--- NOTE | 2023-12-23 06:51 | P.HP_ITS ---
H&P: HPI History of Present Illness Date/Time: 12/23/23 06:51 Chief Complaint: excessive heavy bleed Narrative: 33-year-old female with excessive heavy bleeding admitted for hysteroscopy dilatation curettage. Risks and benefits reviewed exclusive of , aspiration bleeding, transfusion, perforation under bowel, bladder, ureters, or other internal organs with the need for open laparotomy she received the ACOG handout entitled hysteroscopy as well as dilatation curettage respectively. She had all questions answered. She asked to proceed PMFSH Past Medical History Medical History Cholecystitis Prediabetes (vaginal after ) x2 Surgical History Surgical History H/O section X1 H/O tubal ligation [place] teeth removed Family History Family History Father Diabetes mellitus Mother Alive and well Social History Social History Smoking status: Never smoker Second hand tobacco smoke exposure: Yes Alcohol intake: current Alcohol use details: sometimes Substance use: never Substance use type: does not use Lack of Transportation: No Lack of Food: Never True Current Housing: I Have Housing Concerned About Future Housing: No Difficulty Paying Gas/Electric Bills: No Difficulty Paying for Meds: No Currently Unemployed: No Education: High School Diploma/GED Difficulty w/ Childcare or Family Care: No Living arrangements: with family Occupation/Education: occupation Gender identity (if verbalized by the patient): Female Spiritual care concerns: No Meds Home Medications and Allergies Home Medications Medication Instructions Recorded Confirmed Type ferrous sulfate 28 mg iron tablet 1 mg PO DAILY 12/16/23 12/16/23 History Allergies Allergy/AdvReac Type Severity Reaction Status Date / Time No Known Allergies Allergy Verified 12/16/23 09:48 Exam Const: General: cooperative, healthy appearing, comfortable and overweight Orientation/consciousness: oriented to person, oriented to place and oriented to time HENMT: Head: normal to inspection Resp: Effort & Inspection: normal respiratory effort Cardio: Rate: regular rate Rhythm: regular rhythm Heart sounds: S1 saud l heart sound present and S2 normal heart sound present GI: Inspection: normal to inspection : Speculum Exam - Vagina: normal appearance of the vagina Speculum Exam - Cervix: normal appearance of the cervix Bimanual exam- vagina & uterus: enlarged Bimanual Exam- Adnexa, other: normal adnexae Assessment and Plan Assessment and plan (1) Irregular menses: Code(s): N92.6 - Irregular menstruation, unspecified Status: Acute Plan hysteroscopy/dilatation curettage
--- NOTE | 2023-12-23 12:30 | WPDHPUPDATE1 ---
History and Physical Update Update Date/Time: 12/23/23 12:30 History and Physical has been reviewed, including an updated exam of the patient. There are NO changes in the patient's condition. Risks, benefits, and alternatives have been discussed and questions answered. Patient agrees to proceed with procedure. add tommy to plan
--- NOTE | 2023-12-26 05:36 | WPDHPUPDATE1 ---
History and Physical Update Update Date/Time: 12/26/23 05:36 History and Physical has been reviewed, including an updated exam of the patient. There are NO changes in the patient's condition. Risks, benefits, and alternatives have been discussed and questions answered. Patient agrees to proceed with procedure.
[2023-12-26] MEDS: LACTATED RINGERS 1,000 ML 30 ML IV CONT ×2 (07:00→09:39)
--- NOTE | 2023-12-26 07:12 | P.PNAN_ITS ---
Anes - Initial Pre Proc Eval Procedure: Operation Date: 12/26/23 08:30 Proposed Procedures p Hysteroscopy Dilation and Curettage with Loren Endometrial Ablation - Noe Oleary MD Date/Time: 12/26/23 07:12 Surgeon: Noe Oleary MD Pre Op Diagnosis: irr. bleeding, failed ablation Patient Data Age: 33 Gender: F Height: 1.7 m Weight: 108.86 kg Allergies Allergy/AdvReac Type Severity Reaction Status Date / Time No Known Allergies Allergy Verified 12/16/23 09:48 Home Medications Medication Instructions Recorded Confirmed Type ferrous sulfate 28 mg iron tablet 1 mg PO DAILY 12/16/23 12/16/23 History hydrocodone 5 mg-acetaminophen 325 1 tablet PO Q4H PRN pain #20 tabs 12/26/23 Rx mg tablet Patient hx anesthesia problems: none Family hx anesthesia problems: none Results Review: All pre-operative results and documents have been reviewed as part of the pre- operative evaluation. PMFSH Past Medical History Medical History Cholecystitis Prediabetes (vaginal after ) x2 Surgical History Surgical History H/O section X1 H/O tubal ligation [place] teeth removed Family History Family History Father Diabetes mellitus Mother Alive and well Social History Social History Smoking status: Never smoker Second hand tobacco smoke exposure: Yes Alcohol intake: current Alcohol use details: sometimes Substance use: never Substance use type: does not use Lack of Transportation: No Lack of Food: Never True Current Housing: I Have Housing Concerned About Future Housing: No Difficulty Paying Gas/Electric Bills: No Difficulty Paying for Meds: No Currently Unemployed: No Education: High School Diploma/GED Difficulty w/ Childcare or Family Care: No Living arrangements: with family Occupation/Education: occupation Gender identity (if verbalized by the patient): Female Spiritual care concerns: No Anes - Eval Final PreProcedure Day of Procedure 12/26/23 07:12 Patient weight: obese Heart: regular rate and rhythm Lungs: clear to auscultation Airway: Mallampati scale class II Neurological: alert and oriented Last oral intake: >/= 8 hours ASA classification: II Emergent: no Anesthetic plan: proceed Anesthesia type and monitoring: general GIVS and standard monitoring Results Review: All pre-operative results and documents have been reviewed as part of the pre- operative evaluation. Informed Consent: The patient's anesthetic plan and its attendant risks and benefits were discussed with the patient/family/POA. Questions were solicited and answers provided to the satisfaction of the patient/family/POA.
[2023-12-26 07:27] VITALS: BP 126/88; PULSE 74; RESP 16; TEMP 36.8; O2SAT 100
[2023-12-26] MEDS: ACETAMINOPHEN 500 MG TABLET 1000 MG PO (07:29)
[2023-12-26] MEDS: LIDOCAINE HCL 1% LOCAL INJ 10 ML VIAL INFILTRATE (08:51)
--- NOTE | 2023-12-26 08:57 | W.PM.PROC2 ---
Procedure Note - Detailed Date of Procedure 12/26/23 Pre-op Diagnosis irr. bleeding, Post-op Diagnosis Other ( excessive bleeding uterine polyp) Procedure Performed hysteroscopy/ polypectomy/dilatation curettage/ Loren ablation Surgeon Noe Oleary MD Anesthesia MAC and Local Indications 33-year-old female status post tubal ligation with excessive irregular bleeding and thickened endometrium Findings uterus sounded to8.5cm. Thick endometrial tissue with endometrial polyp was seen. Description of Procedure Patient was prepped draped in the normal sterile fashion placed in the dorsal lithotomy position. Under excellent IV sedation weighted speculum placed posterior fornix vagina. Anterior lip of the cervix grasped with a single-tooth tenaculum. 2.5cc 1% xylocaine anesthesia placed at 2, 4, 8, 10:00 a.m. of the cervix. Uterus sounded to8.5cm. Serial dilatation with fragmented dilators performed followed by passage of the 5mm visualizing hysteroscope using normal saline as visualizing medium. Thick endometrial tissue was seen. Each fallopian tube os could be seen uterine polyp was seen at the fundus. Using the reticulating year the polyp was removed without difficulty and this was used to scrape the entire 360?. The instruments were withdrawn the Loren instrument was placed burned for 120seconds removed the hysteroscope was reinserted a good burn was proven in photo documentation undertaken. Instruments withdrawn the patient went recovery in satisfactory condition. All sponge, needle, instrument counts were correct. There were no immediate complications Estimated Blood Loss 5 Drains No Packing No Pathology Yes Complications No immediate complications Condition Stable Disposition PACU
[2023-12-26 09:00] VITALS: BP 124/61; PULSE 75; RESP 18; O2SAT 99
[2023-12-26 09:15] VITALS: BP 113/67; PULSE 67; RESP 16
[2023-12-26 09:45] VITALS: BP 133/68; PULSE 60; RESP 16
== END 2023-12-26 09:50 | disposition home or self-care (01) ==
PROVIDERS: PCP Nurse Practitioner Family; Visit Provider Obstetrics & Gynecology
PROC: 0U5B8ZZ Destruction of Endometrium, Via Natural or Artificial Opening Endoscopic (ICD-10-PCS; CPT 58563; principal; 2023-12-26 08:30)
DX: N84.0 Polyp of corpus uteri (principal); E66.9 Obesity, unspecified; Z68.37 Body mass index [BMI] 37.0-37.9, adult
CPT/HCPCS: 58563; 88305; A9270; J1100; J2250; J2405; J2704; J3010; J7120

== ENCOUNTER 2024-08-28 19:01 | Emergency (ER) | payer OTHER, SELFPAY ==
--- OUTSIDE RECORDS SUMMARY | 2024-08-28 19:03 | XMS_ITS | Continuity of Care Document ---
Author Organization [facility] Address [address] [place] [address] Phone Care Team Providers Care Wire Stitcher Machine Name Role Phone Unavailable Unavailable Unavailable Advance Directives Directive Yes / No Effective Date File Name No Information Encounters Encounter Description Practice Location Reason(s) For Visit Diagnoses Date Provider Providers Copied on Encounter [facility], [address] [facility], [place], [place], [id number], tel:[phone] [facility] No Information 0 2 No Information Referring Provider: CHEYANNE REED, [address] [place] [address],[place], [address]. tel:[phone] Family History Family Member Type Diagnosis Age At Onset No Information Payers Payer name Insurance type Covered constitution party ID Authoriza tishaina(s) [facility] [employer] [id number] Social History Type Description Quantity Date Captured Comments Sex Female Smoking Status No Information Chief Complaint And Reason For Visit No Information History Of Present Illness Encounter Date Complaint History Of Prese nt Illness No Information Instructions Date Instruction Additional Infor mation No Information Assessments Type Assessment Date No Information
--- OUTSIDE RECORDS SUMMARY | 2024-08-28 19:03 | XMS_ITS | Data Portability ---
Author Organization [facility] [place] Address [address] [place] [address] Care Team Providers Care Artist Scientific Name Role Phone AWILDA BOYLE Primary Care Provider Assessment Encounter Date Assessment Date Assessment LastModified by Organization Details LastModified Time 11/30/2019 11/30/2019 Annual gynecological exam performed. Patient will come back in a year unless there are new symptoms. [email or web address] Not available 11/30/2019 09:42:50 12/19/2020 12/19/2020 Annual gynecological exam performed. Patient will come back in a year unless there are new symptoms. Not available 12/18/2020 17:43:27 Plan of Treatment Reminders Order Date Submit Date Provider Last Modified By Organization Details Last Modified Time Details Appointments None recorded. Lab None recorded. Referral None recorded. Procedures None recorded. Surgeries None recorded. Imaging None recorded. Medication Orders Provera 10 mg tablet 021 021 [place] [id number], [address], [place], [place], [id number], 10:24:50 Patient TargetsNo targets recorded. Patient InstructionsNo instructions recorded. Reason for Referral None Reported. Results Created Date Observation Date Name Description Value Unit Range Abnormal Flag Note LastModifiedBy Organization Detail LastModifiedTime 12/20/19 21 12/19/2020 pap, IG + HR HPV image guided Pap, HPV regardless of Pap result SEE RESULT S BELOW CASE REPOR T: Cytol ogy Gynec ologi greg Repor t Case: [id number] Autho rizin g Provi lashay: Anand paniagua , José Camara cted: 12/19 1442 SUSTAINABILITY PROJECT COORDINATOR Order ing Locat ion: [place] [facility] Recei shyam: 12/20 0003 First Scree n: Ge Bourgeois ed, CT Speci men: Scree erin Pap - Image d, Cervi x STATE MENT OF ADEQU ACY: Satis facto ry for evalu ation Trans forma tion zone compo nent prese nt FINAL DIAGN OSIS: Negat onur for Intra epith elial Lesio n or Miranda patten Elect laney espinoza myles d by Ge Bourgeois ed, CT on 2020 at 2:23 PM ----- ----- ----- ----- ----- ----- ----- ----- ----- ----- ----- ----- ----- ----- ----- ----- ----- ---- HPV RESUL TS: HPV mRNA E6/E7 : No HPV mRNA Detec carol NOTE: This high risk HPV mRNA assay detec ts fourt een high- risk HPV types (16, 18, 31, 33, 35, 39, 45, 51, 52, 56, 58, 59, 66, 68) witho ut diffe renti ation . CHART ABLE COMME NT: Note: This speci men was revie wed by a Cytot echno logis t and/o r Patho logis t (as indic ated in this repor t) after evalu ation using the Thinp rep Imagi ng Syste m. CLINI GREG INFOR MATIO N: Menst rual Statu s: LMP (if appli cable ): 021 Clini greg Histo ry/Pr eviou s Pap: Type of Neopl jerrod (if appli cable ): Other Histo ry: Hormo gian (if appli cable ): PAP EDUCA JESUS L NOTE: The Pap Test is a scree erin test with an inher ent false negat onur rate. Liqui d-bas e sampl ing may decre ase, but will not elimi jackson, false negat onur resul ts. A negat onur resul t does not precl ude the prese nce and/o r devel opmen t of disea se, since the prese nce of abnor mal cells in the sampl e depen ds on the locat ion of the lesio n and sampl ing techn ique. Tanvir nued regul ar scree erin is the best metho d of cance r preve ntion . If repor carol cytol ogic findi ng do not corre late with physi greg and/o r histo rical findi ngs, furth er inves tigat ion is recom radha d, as clini moises blackmon nted. Not Available [facility] (Lab) [address], [place], [address], 12/20/2020 15:55:19 Result Notes None recorded. Problems Name Problem SNOMED Code Status Onset Date Resolution Date Notes Provider Name and Address Organization Details Recorded Time SNOMED CT Concept Completed 201511/26/2020 Maternal care for oth abnormal ity and damage, unsp;Rec orded Elsewher e: No Locat ion: [facility] S ource: EHR Clinical Staff Anesthesiologist cindi: N Practi ce ID: 0001 Pancho lable Time: 08:00:00 AM Debora [facility] 19:45:43 Infectio n screenin g Completed 201711/26/2020 Encounte r for screenin g for oth infec/pa rastc diseases ;Recorde d Elsewher e: No Locat ion: [facility] S ource: EHR Clinical Staff Anesthesiologist cindi: N Practi ce ID: 0001 Pancho lable Time: 02:30:00 PM Debora [facility] 19:45:14 Pregnanc y detectio n examinat ion Completed 201511/26/2020 Encounte r for pregnanc y test, result positive ;Recorde d Elsewher e: No Locat ion: [facility] S ource: EHR Clinical Staff Anesthesiologist cindi: N Practi ce ID: 0001 Pancho lable Time: 03:15:00 PM Debora Pretty [facility] 19:45:[address] Concept Completed 201711/26/2020 Encntr for rn lpn cna exam (general ) (routine ) w/o abn findings ;Recorde d Elsewher e: No Locat ion: [facility] S ource: EHR Clinical Staff Anesthesiologist cindi: N Practi ce ID: 0001 Pancho lable Time: 02:30:00 PM Debora Pretty [facility], [facility] 19:45:49 Insertio n of intraute rine contrace ptive device Completed 201511/26/2020 Encounte r for insertio n of intraute rine contrace ptive device;R ecorded Elsewher e: No [facility] N Practi ce ID: 0001 Pancho lable Time: 03:00:00 PM Debora Pretty [facility] 19:45:18 Normal pregnanc y in multigra anand [id number] Completed 201511/26/2020 Encounte r for supervis ion of other normal pregnanc y, 3rd trimeste r;Record ed Elsewher e: No Locat ion: [facility] S ource: EHR Clinical Staff Anesthesiologist cindi: N Practi ce ID: 0001 Pancho lable Time: 02:45:00 PM Debora Pretty [facility], [facility] 19:45:28 Screenin g for malignan t neoplasm of cervix Completed 201711/26/2020 Screenin g for malignan t neoplasm s of the cervix;R ecorded Elsewher e: No Locat ion: [facility] S ource: EHR Clinical Staff Anesthesiologist cindi: N Practi ce ID: 0001 Pancho lable Time: 02:30:00 PM Debora Pretty [facility] 19:45:36 Uterine size for dates discrepa ncy Completed 201511/26/2020 Uterine size-nano e discrepa ncy, third trimeste r;Record ed Elsewher e: No Locat ion: [facility] S ource: EHR Clinical Staff Anesthesiologist cindi: N Practi ce ID: 0001 Pancho lable Time: 05:30:00 PM Debora [facility] 19:45:56 Syphilis test finding [id number] Completed 201511/26/2020 Encntr screen for infectio ns w sexl mode of transmis s;Record ed Elsewher e: No Locat ion: [facility] S ource: EHR Clinical Staff Anesthesiologist cindi: N Practi ce ID: 0001 Pancho lable Time: 11:00:00 AM Debora [facility] 19:45:[address] Concept Completed 201811/26/2020 Encntr for general adult medical exam w/o abnormal findings ;Recorde d Elsewher e: No [facility]at [facility] S ource: EHR Clinical Staff Anesthesiologist cindi: N Practi ce ID: 0001 Pancho lable Time: 08:30:00 AM Debora [facility] 19:45:46 Educatio n Completed 201511/26/2020 Encounte r for other general counseli ng and advice on contrace ption;Re corded Elsewher e: No Locat ion: [facility] S ource: EHR Clinical Staff Anesthesiologist cindi: N Practi ce ID: 0001 Pancho lable Time: 11:00:00 AM Debora [facility] 19:45:05 Clinical finding Completed 201511/26/2020 Presence of (intraut erine) contrace ptive device;R ecorded Elsewher e: No [facility]: EHR Clinical Staff Anesthesiologist cindi: N Practi ce ID: 0001 Pancho lable Time: 03:00:00 PM Debora aguila [facility] 19:44:58 Gestatio n period, 21 weeks [id number] Completed 201511/26/2020 21 weeks gestatio n of pregnanc y;Practi ce ID: 0001 Debora aguila [facility] 19:45:08 Lochia finding Completed 201511/26/2020 Encounte r for routine postpart um follow-u p;Record ed Elsewher e: No [facility]at [facility] S ource: EHR Clinical Staff Anesthesiologist cindi: N Practi ce ID: 0001 Pancho lable Time: 11:00:00 AM Debora Pretty [facility] 19:45:23 Amenorrh ea [id number] Completed 201511/26/2020 Amenorrh ea;Recor ded Elsewher e: No Locat ion: [facility] S ource: EHR Clinical Staff Anesthesiologist cindi: N Practi ce ID: 0001 Pancho lable Time: 03:15:00 PM Debora aguila [facility] 19:44:54 Gestatio n period, 33 weeks [id number] Completed 201511/26/2020 33 weeks gestatio n of pregnanc y;Record ed Elsewher e: No Locat ion: [facility] S ource: EHR Clinical Staff Anesthesiologist cindi: N Practi ce ID: 0001 Pancho lable Time: 05:30:00 PM Debora aguila [facility] 19:45:11 Pregnanc y test negative [id number] Completed 201511/26/2020 Encounte r for pregnanc y test, result negative ;Recorde d Elsewher e: No Locat ion: [facility] S ource: EHR Clinical Staff Anesthesiologist cindi: N Practi ce ID: 0001 Pancho lable Time: 03:00:00 PM Debora Pretty [facility], [facility] 19:45:33 Contrace ptive sheath status [id number] Completed 201511/26/2020 IUD follow up;Recor ded Elsewher e: No Locat ion: [facility] S ource: EHR Clinical Staff Anesthesiologist cindi: N Practi ce ID: 0001 Pancho lable Time: 03:45:00 PM Debora Pretty [facility], [facility] 19:45:02 Lacerati on of female perineum Completed 201511/26/2020 Second degree perineal lacerati on during delivery ;Practic e ID: 0001 Debora Pretty [facility], [facility] 19:45:20 Single live [id number] Completed 201511/26/2020 Single live ;Pr actice ID: 0001 Debora Pretty [facility], [facility] 19:45:39 Problem Notes None recorded. Procedures Surgical History Date Name Laterality Status Provider Name and Address Organization Details Recorded Time 12/20/19 21 Date of Last Pap Smear completed [facility] 12/19/2020 10:03:07 11/29/19 21 IUD Removal completed Maria E Curry [facility]- [address], [place], [address], [facility] 11/28/2020 10:35:16 05/30/20 16 insertion of intrauterine contraceptive device completed [address], [place], [address], [facility] 11/30/2019 10:03:46 07/28/19 12 delivery completed Annalisa Valente [facility] 11/29/2019 17:19:03 extraction of wisdom tooth completed [facility] 11/28/2020 10:16:04 Imaging Results None recorded. Procedure Notes None recorded. Medical Equipment None Reported. Allergies No known drug allergies Medications Name Sig Start Date Stop Date Status Note LastModified by Organization Details LastModified Time Mirena 21 mcg/24 hr (up to 8 years) 52 mg intrauter ine device Take by intraute rine route. 12/19 completed Not Available Not Available Not Available famotidin e 40 mg tablet 11/29 completed Not Available Not Available Not Available topiramat e 25 mg tablet TAKE 1 TABLET BY MOUTH EVERY DAY AT BEDTIME 12/19 completed Not Available Not Available Not Available famotidin e 20 mg tablet TAKE 1 TABLET BY MOUTH TWICE DAILY NEEDED 11/28 completed Not Available Not Available Not Available cephalexi n 500 mg capsule TK 1 C PO BID FOR 5 DAYS 11/28 completed Not Available Not Available Not Available polymyxin B sulfate 10,000 unit-trim ethoprim 1 mg/mL eye drops 11/28 completed Not Available Not Available Not Available Provera 10 mg tablet Take 1 tablet every day by oral route at bedtime for 10 days. 2020 active Not Available Not Available Not Avai lable ibuprofen 600 mg tablet 11/29 completed Not Available Not Available Not Available loratadin e 10 mg tablet TK 1 T PO D 11/28 completed Not Available Not Available Not Available PNV-DHA 27 mg iron-1 mg-300 mg capsule take 1 capsule by oral route every day 11/26 completed Prescrib ed Elsewher e: No [facility] By: eric torres DateTime : 01/05/20 16 12:47:57 PM Not Available Not Available Not Available Triveen-D uo DHA 29 mg-1 mg-400 mg oral pack take 1 by Oral route 01/03 completed Prescrib ed Elsewher e: No [facility] By: karena kauffman DateTime : 01/03/20 16 09:15:35 AM Not Available Not Available Not Available Vitals Date Recorded Body height Body mass index (BMI) Body weight Systolic blood pressure Diastolic blood pressure Provider Name and Address Organization Details Last Updated DateTime 11/28/2020 165.74 cm 38.6 kg/m2 207497.9 g 117 mm[Hg] 83 mm[Hg] Debora [facility] 1 10:11:52 Date Recorded Body height Body mass index (BMI) Body weight Systolic blood pressure Diastolic blood pressure Provider Name and Address Organization Details Last Updated DateTime 12/19/2020 165.74 cm 38.1 kg/m2 376391.8 4 g 121 mm[Hg] 80 mm[Hg] Debora [facility] 1 10:02:37 Date Recorded Body height Body mass index (BMI) Body weight Systolic blood pressure Diastolic blood pressure Provider Name and Address Organization Details Last Updated DateTime 11/30/2019 165.74 cm 37.2 kg/m2 315353.2 8 g 124 mm[Hg] 80 mm[Hg] Annalisa Valente [facility] 0 09:48:36 Social History Question Answer Notes LastModified by Civi[employer]at ion Details LastModified Time Tobacco Smoking Status Never Smoker [facility] 12/19/2020 10:02:41 Do You Have An Advance Directive? No Information n ot available 12/19/2020 What Is Your Level Of Alcohol Consumption? None [email or web address] Information not available 11/30/2019 Are You Blind Or Do You Have Difficulty Seeing? No Information n ot available 11/26/2020 What Is Your Level Of Caffeine Consumption? Moderate Information not available 11/26/2020 How Much Tobacco Do You Chew? None Information not available 12/19/2020 In The 14 Days Before Symptom Onset, Have You Had Close Contact With A Laboratory-confirm ed COVID-19 While That Case Was Ill? No Information n ot available 11/28/2020 In The 14 Days Before Symptom Onset, Have You Had Close Contact With A Person Who Is Under Investigation For COVID-19 While That Person Was Ill? No Information not available 11/28/2020 Have You Been To An Area Known To Be High Risk For COVID-19? No Information not available 11/28/2020 Are You Currently Employed? Yes Information not available 12/19/2020 Are You Deaf Or Do You Have Serious Difficulty Hearing? No Information not available 11/26/2020 What Type Of Diet Are You Following? REGULAR Information n ot available 11/26/2020 What Is The Highest Grade Or Level Of School You Have Completed Or The Highest Degree You Have Received? 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 No Information not available 12/19/2020 Do You Use Protection During Sex? No Information not available 12/19/2020 Do You Use Your Seat Belt Or Car Seat Routinely? Yes Information not available 11/26/2020 Do You Have Smoke And Carbon Monoxide Detectors In Your Home? Yes Information not available 11/26/2020 How Much Tobacco Do You Smoke? No Information not available 12/19/2020 Do You Feel Stressed (tense, Restless, Nervous, Or Anxious, Or Unable To Sleep At Night)? [id number] Information not available 11/26/2020 Do You Use Any Illicit Or Recreational Drugs? No Information not available 11/26/2020 Do You Use Sunscreen Routinely? Yes Information not available 11/26/2020 Have You Used IV Drugs? No Information not available 12/19/2020 Sex: Unknown Functional Status Question Answer Note LastModified by Organizat ion Details LastModified Time Are you able to walk? YESWOREST Information not available 11/26/2020 What is your exercise level? Occasional Information not available 11/26/2020 Mental Status None recorded. Family History Relationship Description Onset Age of this Age Resolved Age Notes LastModified by Organization Details LastModified Time Father Diabetes mellitus Not available 2020 10:13:36 Medical History Condition Response Other N Blood Transfusion N Dermatologic Disorders N Gestational Diabetes N Anxiety Disorder N Autoimmune disease N Arthritis N Polyps N Infertility N Acid Reflux (GERD) N Cancer N Varicosities N Stroke N Neurologic/Epilepsy N Fibromyalgia N Headaches N Kidney Disease N Heart Problems N Kidney or Bladder Problems N Eating Disorder N Art (IVF or FET) N Hepatitis/Liver Disease N No Past Medical History N Urinary Tract Infection N Asthma N Trauma/Violence N Thrombophilias N Allergies (Food, seasonal, environmental ) N Breast Cancer N Drug/Latex Allergies/Reactions N Lung Disease N Defects or Inherited Disease N Breast Problem N Hematologic disorders N Anesthesia Complications N History of STI N Deep Vein Thrombosis N Polycystic ovary syndrome N History of abnormal pap N Endometriosis N High Cholesterol N Thyroid Problems N GI Problems N Anemia N Psychiatric Illness N Ovarian Cancer N Diabetes N Pulmonary (TB, Asthma) N Eczema N Abuse/Domestic Violence N Depression/ depression N Heart Disease N Pre-Eclampsia N Hypertension N Osteoporosis N Gynecological History Statement/Question Response Flow Light Date of LMP 12/03/2020 STIs/STDs N Duration of Flow (days) 5 12 Current Control Method None Sexually Active? Y Menses Monthly N Age of first menstrual cycle 12 Date of Last Pap Smear 12/19/2020 Sexual Problems? N Desired Control Method None LMP Approximate Obstetrics History GPAL:G 2 P 2 0 0 2 Type Value Full Term 2 Living 2 Total 2 Past Encounters Encounter ID Performer Location Encounter Start Date Encounter Closed Date Diagnosis/Indication Diagnosis SNOMED-CT Code Diagnosis ICD10 Code Diagnosis Note [id number] [facility] [address] [address] 11/30/2019 09:40:33 11/30/2019 10:12:06 Gynecologic examination 14846916 Z01.419 Take Calcium with Vitamin D 1200mg daily if not receiving in daily diet. It is strongly advised to have an annual flu shot and up can obtain at most pharmacies . If you have not had a TDap shot in the last 10 years you should obtain one as well. Discussed with patient & provided with informatio n regarding Gardisil vaccine to prevent the 4 strains for HPV that cause cervical cancer if under age 26. Encourage safe sexual practices, to use condoms and limit partners if not already in a monogamous relationsh ip. Do monthly self breast exams. Have mammogram yearly or every other year depending on family history. BRCA testing is now available for patients with strong genetic history of female cancer. If interested contact the office. Engage in daily exercise of low impact aerobic exercise 45-60 minutes 4-5 times weekly. Avoid tobacco and illicit drugs as well as using moderation with alcohol intake less than 1-2 8 oz beverages daily. This lifestyle behavior pattern will lead to less health conditions and longer life span. If BMI greater than 25 weight watchers or dietary consult advised. Patient received above instructio ns, and questions have been answered. If you have any questions please call or respond to this email. Patient was made aware of the patient portal and may obtain a paper copy of today's plan if desired. Pap deferred Pap/HPV due next year STD screen declined CBE done SBE taught & monthly checks encouraged . [id number] Maria E Curry [facility] [address],[place] [address] 11/28/2020 09:55:24 11/28/2020 10:43:47 Removal of intrauterine device [id number] Z30.432 She states the symptoms are of new onset. Patient is here due to the approachin g due date or the nature of her IUD and wishes to have it removed. We discussed the timing of the replacemen t with the next bleed or the need to abstain if she no longer has regular cycles. She expressed understand ing. It was explained that she may have bleeding or spotting after the removal of the device today as well. If cannot see the strings of this device we will need to get an US image to make that the device is still in place and not in an unobtainab le position. She expressed understand ing of all the above instructio ns. Does not want another form of BC. Will use condoms if wants to prevent Understand s period should restart with the next 90d or sooner. [id number] Maria E Curry [facility] [address],[place] [address] 12/19/2020 09:50:26 12/19/2020 10:41:33 Gynecologic examination [id number] Z01.419 Take Calcium with Vitamin D 1200mg daily if not receiving in daily diet. It is strongly advised to have an annual flu shot and up can obtain at most pharmacies . If you have not had a TDap shot in the last 10 years you should obtain one as well. Discussed with patient & provided with informatio n regarding Gardisil vaccine to prevent the 4 strains for HPV that cause cervical cancer if under age 26. Encourage safe sexual practices, to use condoms and limit partners if not already in a monogamous relationsh ip. Do monthly self breast exams. Have mammogram yearly or every other year depending on family history. BRCA testing is now available for patients with strong genetic history of female cancer. If interested contact the office. Engage in daily exercise of low impact aerobic exercise 45-60 minutes 4-5 times weekly. Avoid tobacco and illicit drugs as well as using moderation with alcohol intake less than 1-2 8 oz beverages daily. This lifestyle behavior pattern will lead to less health conditions and longer life span. If BMI greater than 25 weight watchers or dietary consult advised. Patient received above instructio ns, and questions have been answered. If you have any questions please call or respond to this email. Patient was made aware of the patient portal and may obtain a paper copy of today's plan if desired. Pap/hpv sent STD screen declined CBE done SBE taught & monthly checks encouraged . Irregular periods [id number] N92.6 IUD removed Early November 2020. Not using contracept ion. Okay with if it happens. We discussed the need to have a menses q90d unless she has achieved . If no cycle within 90d of last cycle and has at least 2 UPT's that are 2wks apart (after that 90 day selma) that are neg okay to use provera to induce a cycle. If this trend continues advise returning for evaluation especially if wanting to achieve . Understand ing voiced. Health Concerns Section Related Observation LastModified by Organization Detai ls LastModified Time None Recorded Concern Status LastModified by Organization Details LastModified Time None Recorded Advance Directives Directive N: Payers Encounter Date Sequence Insurance Name Policy Number Policy Lazcano Covered Member ID Lazcano Member ID Guarantor Name 11/30/2019 1 [facility] PRIOR TO 01/25/2021 (MEDICAID REPLACEMENT - HMO) Rossy Barbosa [id number] Rossy Barbosa 11/28/2020 1 [facility] PRIOR TO 01/25/2021 (MEDICAID REPLACEMENT - HMO) Rossy Barbosa [id number] Rossy Barbosa 12/19/2020 1 [facility] PRIOR TO 01/25/2021 (MEDICAID REPLACEMENT - HMO) Rossy Chelsey [id number] Rossy Barbosa Notes Date Note Type Note Provider Name and Address Organization Details Recorded Time 11/30/2019 text/html Annual GYNReport ed bypatient.Menstrua l cycle:Normal menses Urinary symptoms:No hematuria; No incontinence Vulva:No genital lesion Vagina:Normal vaginal discharge Breast:No breast pain; No breast lump; No nipple discharge Current Contraception:Sati sfied with current contraception; Monogamous relationship; Intrauterine device (iud) Sexual complaints:No sexual complaints; No pain during intercourse; Normal libido Menopausal Symptoms:No menopausal symptoms; Normal vaginal lubrication Psychological symptoms:No depression; No anxiety; No PMDD Preventive measures:Encourage self breast examination; Encourage regular exercise; Encourage no tobacco use; Followed with Q3 year pap smear and high risk HPV typing [address], [place], [address], [facility] 11/30/2019 10:05:29 11/28/2020 text/html Here for IUD removal [address], [place], [address], [facility] 11/28/2020 10:37:31 12/19/2020 text/html Annual GYNReport ed bypatient.Menstrua l cycle:Only 1 menses since having IUD removed November 2020. Neg UPT's at this point. Is open to . Urinary symptoms:No hematuria; No incontinence Vulva:No genital lesion Vagina:Normal vaginal discharge Breast:No breast pain; No breast lump; No nipple discharge Current Contraception:[place] gamous relationship; control not practiced Sexual complaints:No sexual complaints; No pain during intercourse; Normal libido Menopausal Symptoms:No menopausal symptoms; Normal vaginal lubrication Psychological symptoms:No depression; No anxiety; No PMDD Preventive measures:Encourage self breast examination; Encourage regular exercise; Encourage no tobacco use; Encourage regular mammograms starting age 40; Followed with Q3 year pap smear and high risk HPV typing [address], [place], [address], [facility] 12/19/2020 10:36:35 OBGyn Episode Ob Episode Information Episode Created Date Number of Fetuses Patient Bloodtype Patient rh Status Prepregnancy Weight lbs Domestic Partner Domestic Partner Phone Father Name Wire Tester Status 11/30/19 1 CLOSED Fetus Data First Name Last Name Admitted to NICU Weight (g) Sex Living Outcome Pediatric Complications Fetus ID Race Codes Race Delivery Type [id number] F Full Term 1141 Primary Yaya Calculation Initial Yaya Date Initial Exam Date Initial Exam Provider Initial Ultrasound Date Last Menstrual Period Date Ultra Sound Weeks Gestation 0 Eighteen To Twenty Week Yaya Update Ultra Sound Date Fundal Height At Umbil Quickening Date Ultra Sound Latest Weeks Gestation Final Ayya Confirmed By Final Yaya Confirmed Date Final Yaya Date Ultra Sound Latest Days Gestation 0 0 Menstrual History Last Menstrual Date Menses Monthly On Bcp Conception Prior Menses Frequency Hcg Plus Date Menarche Onset Age Delivery Information Delivery Date Delivery Type Labor Anesthesia Weeks Gestation Incision Type Labor Labor Length Hrs Delivered By Post Complications Tubal Sterilization Discharge Date Comments 2 39.1 false Discharge Information Feeding Method Contraceptive Method Maternal HG B and HCT Levels Ob Episode Information Episode Created Date Number of Fetuses Patient Bloodtype Patient rh Status Prepregnancy Weight lbs Domestic Partner Domestic Partner Phone Father Name Wire Tester Status 11/30/19 1 CLOSED Fetus Data First Name Last Name Admitted to NICU Weight (g) Sex Living Outcome Pediatric Complications Fetus ID Race Codes Race Delivery Type [phone] [phone] F Full Term 1142 V Back Yaya Calculation Initial Yaya Date Initial Exam Date Initial Exam Provider Initial Ultrasound Date Last Menstrual Period Date Ultra Sound Weeks Gestation 0 Eighteen To Twenty Week Yaya Update Ultra Sound Date Fundal Height At Umbil Quickening Date Ultra Sound Latest Weeks Gestation Final Yaya Confirmed By Final Yaya Confirmed Date Final Yaya Date Ultra Sound Latest Days Gestation 0 0 Menstrual History Last Menstrual Date Menses Monthly On Bcp Conception Prior Menses Frequency Hcg Plus Date Menarche Onset Age Delivery Information Delivery Date Delivery Type Labor Anesthesia Weeks Gestation Incision Type Labor Labor Length Hrs Delivered By Post Complications Tubal Sterilization Discharge Date Comments 6 39.1 false Discharge Information Feeding Method Contraceptive Method Maternal HG B and HCT Levels
--- OUTSIDE RECORDS SUMMARY | 2024-08-28 19:03 | XMS_ITS | Data Portability ---
[facility] Organization [facility] Address [address] [facility] [place] [address] Care Team Providers Care Wood Crafter Name Role Phone BRIDGER TOLEDO Primary Care Provider Unavaila ble Assessment Encounter Date Assessment Date Assessment LastModified by Organization Details LastModified Time 07/18/2020 07/18/2020 Verbal consent for telephone visit was obtained and phone call lasted for approximately 15 min. Not available 07/18/2020 10:07:14 08/29/2020 08/29/2020 Verbal consent for telephone visit was obtained and phone call lasted for approximately 15 min. Not available 08/29/2020 09:40:07 09/15/2023 09/15/2023 Pt is a 32 year old female with a PMH of abnormal uterine bleeding since 2021, GERD, and migraines. She is new to my care and presents to the office to establish care. [email or web address] Not available 09/15/2023 16:19:00 Plan of Treatment Reminders Order Date Submit Date Provider Last Modified By Organization Details Last Modified Time Details Appointments None recorded. Lab vitamin D, 25-hydroxy , total, serum 2021 022 [facility], [address] [facility] [address], [place], [address], 07:12:53 HbA1c (hemoglobi n A1c), blood 2021 022 [facility], [address] [facility], [facility], [place], [address], 07:12:52 TSH, ultra-sens itive, serum 2021 022 [facility], [address], [place], [address], 07:12:53 CMP, serum or plasma 2021 022 [facility], [address], [place], [address], 2 07:12:51 lipid panel, serum 2021 022 [facility], [address], [place], [address], 07:12:52 CBC 2021 022 [facility], [address], [place], [address], 07:12:51 vitamin D, 25-hydroxy , total, serum 2023 024 [facility], [address] [facility], [address], [place], [address], 4 08:28:11 TSH, ultra-sens itive, serum 2023 024 [facility], [address], [place], [address], 4 08:28:10 CMP, serum or plasma 2023 024 [facility], [address], [place], [address], 4 03:15:38 lipid panel, serum 2023 024 [facility], [address], [place], [address], 4 03:15:37 CBC 2023 024 [facility], [address], [place], [address], 4 03:15:38 cytology report, thin prep, smear or scraping, cervical or vaginal 2023 024 [facility], [address] [facility], [facility], [place], [address], 4 11:15:51 vaginal pathogens panel, LILY+probe, vaginal fluid 2023 024 [facility], [address] [facility], [facility], [place], [address], 4 06:19:45 Referral general surgeon referral 2021 022 SILVANA Fish MD, [address] [facility] , [address], [place], [address], 2 09:48:30 Procedures None recorded. Surgeries None recorded. Imaging US, transvagin al 2023 024 [facility], [address] [facility] , [place], [address], 4 12:42:02 Medication Orders topiramate 25 mg tablet 2019 020 [id number], [address], [place], [place], [id number], 2 10:32:20 famotidine 20 mg tablet 2019 020 [id number], [address], [place], [place], [id number], 2 10:32:10 Patient TargetsNo targets recorded. Patient Instructions Encounter Date Encounter Id Patient Instructions Last Modified By Organization Details Last Modified Time 07/18/2020 [id number] Increase water intake to at least 8-10 8 oz glasses a day and decrease caffeine intake. Keep headache log/diary to track possible triggers and anything that brings relief. Not available 07/18/2020 10:12:33 follow up in 6 weeks Not avail able 07/18/2020 10:08:25 08/29/2020 [id number] recurring migrai ne headache: care instructions Not available 08/29/2020 09:44:51 gastroesophageal reflux disease (GERD): care instructions Not available 08/29/2020 09:44:51 Increase water intake to at least 8-10 8 oz glasses a day and decrease caffeine intake. Keep headache log/diary to track possible triggers and anything that brings relief. Not available 08/29/2020 09:39:53 f/u 6 months DWP barriers to care: none Not available 08/29/2020 09:44:17 03/21/2022 [id number] A healthy lifest yle: care instructions Not available 03/21/2022 10:57:52 low-fat diet for gallbladder disease: care instructions Not available 03/21/2022 11:09:27 Increase clear fluids. If pain increases or if fever, go to ER. Not available 03/21/2022 10:59:42 dwp labs needed, plan pending results Not available 03/21/2022 10:59:56 08/21/2023 [id number] A healthy lifest yle: care instructions Not available 08/21/2023 14:22:25 Increase intake of fresh fruits,?? and vegetables. Avoid packaged foods and fast foods. ?? Follow a low salt diet, drink at least 8-10 8oz glasses of water a day, exercise most days of the week. Take all medications as prescribed. Keep appointments with PCP and all specialists. Not available 08/21/2023 18:05:35 follow up as nee ded, yearly to keep established with provider Not available 08/21/2023 18:05:39 09/15/2023 [id number] [facility] article, 20 19 Abnormal Uterine Bleeding in Premenopausal Women Differentials: coagulopathies, infection (PID, acute/chronic endometritis), ovulatory dysfunction (androgen excess, PCOS, PRLactinoma, HPAxis dysfunction, [place]'s, thyroid disorders, intense exercise), , structural abnormality Labs: -Pap smear -Beta hCG to rule out -CBC to rule out infection -PT/PTT to rule out coagulopathy -Testosterone to rule out androgen excess -PRL level -TSH with T4 reflex to rule out thyroid abnormality Treatment : -Progestins (Norethindrone) 2.5-5mg daily -Combo pill: one monophasic pill with 35mcg of ethinyl estradiol daily) -Tranexamic acid (Lysteda) 1.3g q6-8hr during menstruation; faster if given IV -Depo-Provera q3 months: 150mg IM or 104mg subcut q13 weeks -Leuprolide 3.75mg IM q3 months -LNG-IUD (Liletta, Kyleena, Mirena, Rachel) q5 years -NSAIDs (Ibuprofen) 600mg q6-24hr -Naproxen 500mg BID *Consider transvaginal US if initial treatment does not work, or if you suspect structural abnormality I personally saw and examined the patient with the resident. I agree with the note and plan as documented. Juwan Scales MD. [facility] [email or web address] Not available 09/15/2023 17:06:22 Reason for Referral General Surgeon Referral for Cholelithiasis without obstruction Referring Physician: Sona John, Family Medicine, Encounter Date: 03/21/2022 Results Created Date Observation Date Name Description Value Unit Range Abnormal Flag Note LastModifiedBy Organization Detail LastModifiedTime 03/21/20 22 03/22/2022 COMP. METAB OLIC PANEL (14) glucose 84 mg/dL 65-99 Not Available [facility] ([facility]) [address] [place], [address], 03/22/2022 07:12:51 03/21/20 22 03/22/2022 COMP. METAB OLIC PANEL (14) BUN 14 mg/dL 6-20 Not Available [facility] ([facility]) [address] [facility], [place], [address], 03/22/2022 07:12:51 03/21/20 22 03/22/2022 COMP. METAB OLIC PANEL (14) creatinine 0.78 mg/dL 0.57-1 .00 Not Available [facility] ([facility]) [address] [facility], [place], [address], 03/22/2022 07:12:51 03/21/20 22 03/22/2022 COMP. METAB OLIC PANEL (14) eGFR 104 mL/mi n/1.7 3 >59 Not Available [facility] ([facility]) [address] [facility], [place], [address], 03/22/2022 07:12:51 03/21/20 22 03/22/2022 COMP. METAB OLIC PANEL (14) BUN/creatini ne ratio 18 9-23 Not Available [facility] ([facility]) [address] [facility], [place], [address], 03/22/2022 07:12:51 03/21/20 22 03/22/2022 COMP. METAB OLIC PANEL (14) sodium 139 mmol/ L 134-14 4 Not Available [facility] ([facility]) [address] [place], [address], 03/22/2022 07:12:51 03/21/20 22 03/22/2022 COMP. METAB OLIC PANEL (14) potassium 4.5 mmol/ L 3.5-5. 2 Not Available [facility] ([facility]) [address] [place], [address], 03/22/2022 07:12:51 03/21/20 22 03/22/2022 COMP. METAB OLIC PANEL (14) chloride 98 mmol/ L 96-106 Not Available [facility] ([facility]) [address] [place], [address], 03/22/2022 07:12:51 03/21/20 22 03/22/2022 COMP. METAB OLIC PANEL (14) carbon dioxide, total 24 mmol/ L 20-29 Not Available [facility] ([facility]) [address] [facility], [place], [address], 03/22/2022 07:12:51 03/21/20 22 03/22/2022 COMP. METAB OLIC PANEL (14) calcium 9.3 mg/dL 8.7-10 .2 Not Available [facility] ([facility]) [address] [facility], [place], [address], 03/22/2022 07:12:51 03/21/20 22 03/22/2022 COMP. METAB OLIC PANEL (14) protein, total 7.2 g/dL 6.0-8. 5 Not Available [facility] ([facility]) [address] [facility], [place], [address], 03/22/2022 07:12:51 03/21/20 22 03/22/2022 COMP. METAB OLIC PANEL (14) albumin 4.6 g/dL 3.8-4. 8 Not Available [facility] ([facility]) [address] [facility] [place], [address], 03/22/2022 07:12:51 03/21/20 22 03/22/2022 COMP. METAB OLIC PANEL (14) globulin, total 2.6 g/dL 1.5-4. 5 Not Available [facility] ([facility]) [address] [facility], [place], [address], 03/22/2022 07:12:51 03/21/20 22 03/22/2022 COMP. METAB OLIC PANEL (14) A/G ratio 1.8 1.2-2. 2 Not Available [facility] ([facility]) [address] [facility] [place], [address], 03/22/2022 07:12:51 03/21/20 22 03/22/2022 COMP. METAB OLIC PANEL (14) bilirubin, total 0.3 mg/dL 0.0-1. 2 Not Available [facility] ([facility]) [address] [facility] [place], [address], 03/22/2022 07:12:51 03/21/20 22 03/22/2022 COMP. METAB OLIC PANEL (14) alkaline phosphatase 144 IU/L 44-121 above high normal Not Available [facility] ([facility]) [address] [facility] [place], [address], 03/22/2022 07:12:51 03/21/20 22 03/22/2022 COMP. METAB OLIC PANEL (14) AST (SGOT) 30 IU/L 0-40 Not Available [facility] ([facility]) [address] [facility] [place], [address], 03/22/2022 07:12:51 03/21/20 22 03/22/2022 COMP. METAB OLIC PANEL (14) ALT (SGPT) 47 IU/L 0-32 above high normal Not Available [facility] ([facility]) [address] [facility] [place], [address], 03/22/2022 07:12:51 03/21/20 22 03/22/2022 CBC, NO DIFFE RENTI AL/PL ATELE T WBC 5.7 x10e3 /uL 3.4-10 .8 Not Available [facility] ([facility]) [address] [place], [address], 03/22/2022 07:12:51 03/21/20 22 03/22/2022 CBC, NO DIFFE RENTI AL/PL ATELE T RBC 5.17 x10e6 /uL 3.77-5 .28 Not Available [facility] ([facility]) [address] [place], [address], 03/22/2022 07:12:51 03/21/20 22 03/22/2022 CBC, NO DIFFE RENTI AL/PL ATELE T hemoglobin 14.2 g/dL 11.1-1 5.9 Not Available [facility] ([facility]) [address] [facility], [place], [address], 03/22/2022 07:12:51 03/21/20 22 03/22/2022 CBC, NO DIFFE RENTI AL/PL ATELE T hematocrit 43.1 % 34.0-4 6.6 Not Available [facility] ([facility]) [address] [facility], [place], [address], 03/22/2022 07:12:51 03/21/20 22 03/22/2022 CBC, NO DIFFE RENTI AL/PL ATELE T MCV 83 fL 79-97 Not Available [facility] ([facility]) [address] [facility], [place], [address], 03/22/2022 07:12:51 03/21/20 22 03/22/2022 CBC, NO DIFFE RENTI AL/PL ATELE T MCH 27.5 pg 26.6-3 3.0 Not Available [facility] ([facility]) [address] [place], [address], 03/22/2022 07:12:51 03/21/20 22 03/22/2022 CBC, NO DIFFE RENTI AL/PL ATELE T MCHC 32.9 g/dL 31.5-3 5.7 Not Available [facility] ([facility]) [address] [facility], [place], [address], 03/22/2022 07:12:51 03/21/20 22 03/22/2022 CBC, NO DIFFE RENTI AL/PL ATELE T RDW 13.9 % 11.7-1 5.4 Not Available [facility] ([facility]) [address] [place], [address], 03/22/2022 07:12:51 03/21/20 22 03/22/2022 CBC, NO DIFFE RENTI AL/PL ATELE T NRBC AIRCRAFT MAINTENANCE ENGINEER Not Available [facility] ([facility]) [address] [facility] [place], [address], 03/22/2022 07:12:51 03/21/20 22 03/22/2022 LIPID PANEL cholesterol, total 169 mg/dL 100-19 9 Not Available [facility] ([facility]) [address] [facility] [place], [address], 03/22/2022 07:12:52 03/21/20 22 03/22/2022 LIPID PANEL triglyceride s 56 mg/dL 0-149 Not Available [facility] ([facility]) [address] [facility] [place], [address], 03/22/2022 07:12:52 03/21/20 22 03/22/2022 LIPID PANEL HDL cholesterol 49 mg/dL >39 Not Available [facility]) [address] [place], [address], 03/22/2022 07:12:52 03/21/20 22 03/22/2022 LIPID PANEL VLDL cholesterol greg 11 mg/dL 5-40 Not Available [facility] ([facility]) [address] [place], [address], 03/22/2022 07:12:52 03/21/20 22 03/22/2022 LIPID PANEL LDL chol calc ([facility]) 109 mg/dL 0-99 above high normal Not Available [facility] ([facility]) [address] [place], [address], 03/22/2022 07:12:52 03/21/20 22 03/22/2022 LIPID PANEL comment: AIRCRAFT MAINTENANCE ENGINEER Not Available [facility] ([facility]) [address] [place], [address], 03/22/2022 07:12:52 03/21/20 22 03/22/2022 HEMOG LOBIN A1C hemoglobin A1C 5.8 % 4.8-5. 6 above high normal Predi abete s: 5.7 - 6.4 Diabe kelechi: >6.4 Glyce alba contr ol for adult s with diabe kelechi: <7.0 Not Available [facility] ([facility]) [address] [facility], [place], [address], 03/22/2022 07:12:52 03/21/20 22 03/22/2022 VITAM IN D, 25-HY DROXY vitamin D, 25-hydroxy 37.5 NG/mL 30.0-1 00.0 Vitam in D defic iency has been defin ed by the Insti tute of Medic ine and an Endoc rine Socie ty pract ice guide line as a level of serum 25-OH vitam in D less than 20 ng/mL (1,2) . The Endoc rine Socie ty went on to furth er defin e vitam in D insuf ficie ncy as a level betwe en 21 and 29 ng/mL (2). 1. IOM (Inst itute of Medic ine). 2009. Dieta ry refer ence intak es for calci um and D. Betsy hernandez DC: The Natio nal [facility] Press . 2. Omer yang MF, Augie humphries [place], Ishmael off-F errar i [place], et al. Evalu ation , treat ment, and preve ntion of vitam in D defic iency : an Endoc rine Socie ty clini greg pract ice guide line. EM. 2010; 96(7) :1911 -30. Not Available [facility] ([facility]) [address] [facility], [place], [address], 03/22/2022 07:12:53 03/21/20 22 03/22/2022 TSH RFX ON ABNOR MAL TO FREE T4 TSH 2.190 uIU/m L 0.450- 4.500 Not Available [facility] ([facility]) [address] [facility], [place], [address], 03/22/2022 07:12:53 08/21/19 24 08/21/2023 LIPID PANEL cholesterol, total 155 mg/dL 100-19 9 Not Available [facility] [address] [place], [address], 08/22/2023 03:15:37 08/21/19 24 08/21/2023 LIPID PANEL triglyceride s 79 mg/dL 0-149 Not Available [facility] [address] [place], [address], 08/22/2023 03:15:37 08/21/19 24 08/21/2023 LIPID PANEL HDL cholesterol 46 mg/dL 40-999 Not Available [facility] [address] [place], [address], 08/22/2023 03:15:37 08/21/19 24 08/21/2023 LIPID PANEL VLDL cholesterol greg 16 mg/dL 5-40 Not Available [facility] [address] [place], [address], 08/22/2023 03:15:37 08/21/19 24 08/21/2023 LIPID PANEL LDL chol calc (nih) 103 mg/dL 0-99 above high normal Not Available [facility] [address] [place], [address], 08/22/2023 03:15:37 08/21/19 24 08/21/2023 COMP. METAB OLIC PANEL (14) glucose 74 mg/dL 70-99 Not Available [facility] [address] [place], [address], 08/22/2023 03:15:38 08/21/19 24 08/21/2023 COMP. METAB OLIC PANEL (14) BUN 14 mg/dL 6-20 Not Available [facility] [address] [place], [address], 08/22/2023 03:15:38 08/21/19 24 08/21/2023 COMP. METAB OLIC PANEL (14) creatinine 0.66 mg/dL 0.76-1 .27 below low normal Not Available [facility] [address] [place], [address], 08/22/2023 03:15:38 08/21/19 24 08/21/2023 COMP. METAB OLIC PANEL (14) eGFR 119 >=60 Units for eGFR value s are mL/mi n/1.7 3 The eGFR Calcu latio n has not been valid ated for patie nts under the age of 18. If test resul ts are displ ayed for a patie nt under the age of 18, disre matt that value . Not Available [facility] [address] [place], [address], 08/22/2023 03:15:38 08/21/19 24 08/21/2023 COMP. METAB OLIC PANEL (14) BUN/creatini ne ratio 21 9-23 Not Available [facility] [address] [place], [address], 08/22/2023 03:15:38 08/21/19 24 08/21/2023 COMP. METAB OLIC PANEL (14) sodium 138 mmol/ L 134-14 4 Not Available [facility] [address] [place], [address], 08/22/2023 03:15:38 08/21/19 24 08/21/2023 COMP. METAB OLIC PANEL (14) potassium 4.3 mmol/ L 3.5-5. 2 Not Available [facility] [address] [place], [address], 08/22/2023 03:15:38 08/21/19 24 08/21/2023 COMP. METAB OLIC PANEL (14) chloride 101 mmol/ L 96-106 Not Available [facility] [address] [place], [address], 08/22/2023 03:15:38 08/21/19 24 08/21/2023 COMP. METAB OLIC PANEL (14) carbon dioxide, total 29 mmol/ L 20-29 Not Available [facility] [address] [place], [address], 08/22/2023 03:15:38 08/21/19 24 08/21/2023 COMP. METAB OLIC PANEL (14) calcium 9.6 mg/dL 8.7-10 .2 Not Available [facility] [address] [place], [address], 08/22/2023 03:15:38 08/21/19 24 08/21/2023 COMP. METAB OLIC PANEL (14) protein, total 7.3 g/dL 6.0-8. 5 Not Available [facility] [address] [place], [address], 08/22/2023 03:15:38 08/21/19 24 08/21/2023 COMP. METAB OLIC PANEL (14) albumin 4.4 g/dL 3.9-4. 9 Not Available [facility] [address] [place], [address], 08/22/2023 03:15:38 08/21/19 24 08/21/2023 COMP. METAB OLIC PANEL (14) globulin, total 2.9 g/dL 1.5-4. 5 Not Available [facility] [address] [place], [address], 08/22/2023 03:15:38 08/21/19 24 08/21/2023 COMP. METAB OLIC PANEL (14) A/G ratio 2.0 1.2-2. 2 Not Available [facility] [address] [place], [address], 08/22/2023 03:15:38 08/21/19 24 08/21/2023 COMP. METAB OLIC PANEL (14) bilirubin, total 0.3 mg/dL 0.0-1. 2 Not Available [facility] [address] [place], [address], 08/22/2023 03:15:38 08/21/19 24 08/21/2023 COMP. METAB OLIC PANEL (14) alkaline phosphatase 99 IU/L 44-121 Not Available [facility] [address] [place] [address], [address], 08/22/2023 03:15:38 08/21/19 24 08/21/2023 COMP. METAB OLIC PANEL (14) AST (SGOT) 21 IU/L 0-40 Not Available [facility] [address] [place] [address], [address], 08/22/2023 03:15:38 08/21/19 24 08/21/2023 COMP. METAB OLIC PANEL (14) ALT (SGPT) 22 IU/L 0-32 Not Available [facility] [address] [place] [address], [address], 08/22/2023 03:15:38 08/21/19 24 08/21/2023 CBC, NO DIFFE RENTI AL/PL ATELE T WBC 7.8 x10e3 /uL 3.4-10 .8 Not Available [facility] [address] [place] [address], [address], 08/22/2023 03:15:38 08/21/19 24 08/21/2023 CBC, NO DIFFE RENTI AL/PL ATELE T RBC 4.68 x10e6 /uL 3.77-5 .28 Not Available [facility] [address] [place] [address], [address], 08/22/2023 03:15:38 08/21/19 24 08/21/2023 CBC, NO DIFFE RENTI AL/PL ATELE T hemoglobin 12.7 g/dL 11.1-1 5.9 Not Available [facility] [address] [place] [address], [address], 08/22/2023 03:15:38 08/21/19 24 08/21/2023 CBC, NO DIFFE RENTI AL/PL ATELE T hematocrit 39.7 % 34.0-4 6.6 Not Available [facility] [address] [place] [address], [address], 08/22/2023 03:15:38 08/21/19 24 08/21/2023 CBC, NO DIFFE RENTI AL/PL ATELE T MCV 85 fL 79-97 Not Available [facility] [address] [place] [address], [address], 08/22/2023 03:15:38 08/21/19 24 08/21/2023 CBC, NO DIFFE RENTI AL/PL ATELE T MCH 27.1 pg 26.6-3 3.0 Not Available [facility] [address] [place] [address], [address], 08/22/2023 03:15:38 08/21/19 24 08/21/2023 CBC, NO DIFFE RENTI AL/PL ATELE T MCHC 32.0 g/dL 31.5-3 5.7 Not Available [facility] [address] [place] [address], [address], 08/22/2023 03:15:38 08/21/19 24 08/21/2023 CBC, NO DIFFE RENTI AL/PL ATELE T RDW 13.1 % 11.5-1 4.5 Not Available [facility] [address] [place] [address], [address], 08/22/2023 03:15:38 08/21/19 24 08/21/2023 CBC, NO DIFFE RENTI AL/PL ATELE T NRBC 0 % 0-0 Not Available [facility] [address] [place] [address], [address], 08/22/2023 03:15:38 08/21/19 24 08/22/2023 TSH RFX ON ABNOR MAL TO FREE T4 TSH 2.310 uIU/m L 0.450- 4.500 Not Available [facility] ([facility]) [address] [facility], [place], [address], 08/22/2023 08:28:09 08/21/19 24 08/22/2023 VITAM IN D, 25-HY DROXY vitamin D, 25-hydroxy 28.1 NG/mL 30.0-1 00.0 below low normal Vitam in D defic iency has been defin ed by the Insti tute of Medic ine and an Endoc rine Socie ty pract ice guide line as a level of serum 25-OH vitam in D less than 20 ng/mL (1,2) . The Endoc rine Socie ty went on to furth er defin e vitam in D insuf ficie ncy as a level betwe en 21 and 29 ng/mL (2). 1. IOM (Inst itute of Medic ine). 2010. Dieta ry refer ence intak es for calci um and D. Betsy hernandez DC: The [facility] Press . 2. Omer yang MF, Augie humphries [place], Ishmael off-F errar i [place], et al. Evalu ation , treat ment, and preve ntion of vitam in D defic iency : an Endoc rine Socie ty clini greg pract ice guide line. JCEM. 2010; 96(7) :1911 -30. Not Available [facility] ([facility]) [address] [facility], [place], [address], 08/22/2023 08:28:11 09/15/19 24 09/16/2023 NUSWA B VAGIN ITIS PLUS (VG+) atopobium vaginae Low - 0 score Not Available [facility] ([facility]) [address] [facility], [place], [address], 09/18/2023 06:19:45 09/15/19 24 09/16/2023 NUSWA B VAGIN ITIS PLUS (VG+) bvab 2 Low - 0 score Not Available [facility] ([facility]) [address] [facility], [place], [address], 09/18/2023 06:19:45 09/15/19 24 09/16/2023 NUSWA B VAGIN ITIS PLUS (VG+) megasphaera 1 Low - 0 score Calcu late total score by emily antunez the 3 indiv idual bacte rial vagin osis (BV) marke r score s toget her. Total score is inter prete d as follo ws: Total score 0-1: Indic ates the absen ce of BV. Total score 2: Indet ermin ate for BV. Addit ional clini greg data shoul d be evalu ated to estab sherrill a diagn osis. Total score 3-6: Indic ates the prese nce of BV. This test was devel oped and its perfo rmanc e moises cteri stics deter mined by [facility]. It has not been clear ed or appro shyam by the Food and Drug Admin istra tion. Not Available [facility] ([facility]) [address] [place], [address], 09/18/2023 06:19:45 09/15/19 24 09/16/2023 NUA B VAGIN ITIS PLUS (VG+) cassie albicans, LILY Negati ve negati ve Not Available [facility] ([facility]) [address] [place], [address], 09/18/2023 06:19:45 09/15/19 24 09/16/2023 NUSWA B VAGIN ITIS PLUS (VG+) cassie glabrata, LILY Negati ve negati ve Not Available [facility] ([facility]) [address] [place], [address], 09/18/2023 06:19:45 09/15/19 24 09/17/2023 NUSWA B VAGIN ITIS PLUS (VG+) trich vag by LILY Negati ve negati ve Not Available [facility] ([facility]) [address] [place], [address], 09/18/2023 06:19:45 09/15/19 24 09/17/2023 NUSWA B VAGIN ITIS PLUS (VG+) chlamydia trachomatis, LILY Negati ve negati ve Not Available [facility] ([facility]) [address] [facility], [place], [address], 09/18/2023 06:19:45 09/15/19 24 09/17/2023 NUSWA B VAGIN ITIS PLUS (VG+) neisseria gonorrhoeae, LILY Negati ve negati ve Not Available [facility] ([facility]) [address] [facility], [place], [address], 09/18/2023 06:19:45 09/15/19 24 09/16/2023 IGP, APTIM A HPV, RFX 16/18 ,45 HPV aptima Negati ve negati ve This nucle ic acid ampli ficat ion test detec ts fourt een high- risk HPV types (16,1 8,31, 33,35 ,39,4 5,51, 52,56 ,58,5 9,66, 68) witho ut diffe renti ation . Not Available [facility] ([facility]) [address] [place], [address], 09/18/2023 11:15:51 09/15/19 24 09/18/2023 IGP, APTIM A HPV, RFX 16/18 ,45 diagnosis: Commen t NEGAT CHRISTEN FOR INTRA EPITH ELIAL LESIO N OR KATELYN RAO . THIS SPECI MEN WAS RESCR EENED PART OF OUR QUALI TY CONTR OL PROGR AM. Not Available [facility] ([facility]) [address] [facility], [place], [address], 09/18/2023 11:15:51 09/15/19 24 09/18/2023 IGP, APTIM A HPV, RFX 16/18 ,45 specimen adequacy: Commen t Satis facto ry for evalu ation . Endoc ervic al and/o r squam ous metap lasti c cells (endo cervi greg compo nent) are prese nt. Not Available [facility] ([facility]) [address] [place], [address], 09/18/2023 11:15:51 09/15/19 24 09/18/2023 IGP, APTIM A HPV, RFX 16/18 ,45 clinician provided ICD10: Stella rogers Z87.4 2 Not Available [facility] ([facility]) [address] [place], [address], 09/18/2023 11:15:51 09/15/19 24 09/18/2023 IGP, APTIM A HPV, RFX 16/18 ,45 [facility] Cytot echno logis t (ASCP ) Not Available [facility] ([facility]) [address] [place], [address], 09/18/2023 11:15:51 09/15/19 24 09/18/2023 IGP, APTIM A HPV, RFX 16/18 ,45 QC reviewed by: Stella garveye Clark , Cytot echno logis t Not Available [facility] ([facility]) [address] [place], [address], 09/18/2023 11:15:51 09/15/19 24 09/18/2023 IGP, APTIM A HPV, RFX 16/18 ,45 . . Not Available [facility] ([facility]) [address] [place], [address], 09/18/2023 11:15:51 09/15/19 24 09/18/2023 IGP, APTIM A HPV, RFX 16/18 ,45 note: Stella rogers The Pap smear is a scree erin test desig laney to aid in the detec tion of schuyler ligna nt and malig nant condi tions of the uteri ne cervi x. It is not a diagn ostic proce dure and shoul d not be used as the sole means of detec ting cervi greg cance r. Both false -posi tive and false -nega tive repor ts do occur . Not Available [facility] ([facility]) [address] [facility], [place], [address], 09/18/2023 11:15:51 09/15/19 24 09/18/2023 IGP, APTIM A HPV, RFX 16/18 ,45 test methodology: Commen t This liqui d based ThinP rep(R ) pap test was scree laney with the use of an image guide mike lowry Not Available [facility] ([facility]) [address] [facility], [place], [address], 09/18/2023 11:15:51 09/15/19 24 09/18/2023 IGP, APTIM A HPV, RFX 16/18 ,45 HPV genotype reflex Commen t Crite bora not met, HPV Genot ype not perfo rmed. Not Available [facility] ([facility]) [address] [facility], [place], [address], 09/18/2023 11:15:51 06/15/20 21 06/08/2021 US, obste tric No observ ation record ed. Not Available 2020 14:47:06 10/02/19 22 09/14/2021 US, obste tric No observ ation record ed. [email or web address] [address], [place], [address], 10/03/2021 10:32:34 03/22/20 22 03/18/2022 CT, abdom en + pelvi s, w/o contr ast No observ ation record ed. [place] [address], [place], [address], 03/22/2022 12:38:34 Result Notes None recorded. Problems No Known Problems Procedures Surgical History Date Name Laterality Status Provider Name and Address Organization Details Recorded Time 12/26/19 24 hysteroscopy completed SHANA Clark [place] - [facility] 01/08/2024 10:56:43 10/11/19 22 Tubal Ligation completed Lilly Ernst [place] [facility] 03/21/2022 10:33:41 12/08/19 18 Date of Last Pap Smear completed Vidya Harris [place] [facility] 09/12/2023 17:18:05 04/03/20 12 Caesarean Section completed Toshia Rodarte [place] 11/19/2017 10:05:54 Imaging Results Imaging Date Name Status LastModified by Organiz [facility] Details LastModified Time 06/08/2021 US, obstetric completed [email or web address] Information not available 06/15/2021 14:47:06 09/14/2021 US, obstetric completed [email or web address] Forrest kline [address] [facility] [address], [place], [address], 10/03/2021 10:32:34 03/18/2022 CT, abdomen + pelvis, w/o contrast completed [facility] Shamir [facility] [address] [facility] , [place], [address], 03/22/2022 12:38:34 Procedure Notes None recorded. Medical Equipment None Reported. Allergies No known drug allergies Medications Name Sig Start Date Stop Date Status Note LastModified by Organization Details LastModified Time Mirena 21 mcg/24 hr (up to 8 years) 52 mg intrauter ine device Take by intraute rine route. 03/21 completed Not Available Not Available Not Available ibuprofen 800 mg tablet 12/01 completed Not Available Not Available Not Available hydrocodo ne 5 mg-acetam inophen 325 mg tablet TAKE 1 TABLET BY MOUTH EVERY 6 HOURS NEEDED FOR PAIN 08/21 completed Not Available Not Available Not Available famotidin e 40 mg tablet 12/01 completed Not Available Not Available Not Available Tubersol 5 tub. unit/0.1 mL intraderm al injection solution Administ er .1ml interder christiano 12/08 completed Not Available Not Available Not Available medroxypr ogesteron e 5 mg tablet TAKE 2 TABLET BY MOUTH DAILY active Not Available Not Available No t Available topiramat e 25 mg tablet TAKE 1 TABLET BY MOUTH EVERY DAY AT BEDTIME 03/21 completed pt states she doesn't take everyday she forgets Not Available Not Available Not Available sulfameth oxazole 800 mg-trimet hoprim 160 mg tablet TAKE 1 TABLET BY MOUTH EVERY 12 HOURS 03/21 completed Not Available Not Available Not Available amoxicill in 875 mg tablet 12/08 completed Not Available Not Available Not Available famotidin e 20 mg tablet TAKE 1 TABLET BY MOUTH TWICE DAILY NEEDED 03/21 completed Not Available Not Available Not Available cephalexi n 500 mg capsule 04/06 completed Not Available Not Available Not Available polymyxin B sulfate 10,000 unit-trim ethoprim 1 mg/mL eye drops INSTILL 1 DROP INTO AFFECTED EYE(S) BY OPHTHALM IC ROUTE EVERY 6 HOURS 04/06 completed 04/06/20 20-pt states she is not using Not Available Not Available Not Available ibuprofen 600 mg tablet 12/01 completed Not Available Not Available Not Available fluticaso ne propionat e 50 mcg/actua tion nasal spray,shelley pension SHAKE LIQUID AND USE 1 SPRAY IN EACH NOSTRIL TWICE DAILY 08/21 completed Not Available Not Available Not Available loratadin e 10 mg tablet 04/06 completed 04/06/20 20-pt states she is not taking Not Available Not Available Not Available amoxicill in 875 mg-potass ium clavulana te 125 mg tablet TAKE 1 TABLET BY MOUTH EVERY 12 HOURS FOR 10 DAYS 08/21 completed Not Available Not Available Not Available Paxlovid 300 mg (150 mg x 2)-100 mg tablets in a dose pack Take 1 dose pk every day by oral route as directed . 08/21 completed Not Available Not Available Not Available Vitals Date Recorded Body height Provider Name an d Address Organization Details Last Updated DateTime 03/21/2022 166.37 cm Lilly Ernst [facility] 03/21/2022 10:31:34 Date Recorded Body mass index (BMI) Provider Name and Address Organization Details Last Updated DateTime 03/21/2022 40.3 kg/m2 Lilly Ernst [facility] 03/21/2022 10:31:42 Date Recorded Body weight Provider Name an d Address Organization Details Last Updated DateTime 03/21/2022 643795.72 g Lilly Ernst [place] [facility] 03/21/2022 10:31:43 Date Recorded Oxygen saturation Oxygen saturation in Arterial blood by Pulse oximetry Provider Name and Address Organization Details Last Updated DateTime 03/21/2022 98 % 98 % Lilly Ernst [place] [facility] 03/21 10:31:46 Date Recorded Heart rate Provider Name an d Address Organization Details Last Updated DateTime 03/21/2022 82 /min Lilly Ernst [place] [facility] 03/21/2022 10:31:50 Date Recorded Respiratory rate Provider Name a nd Address Organization Details Last Updated DateTime 03/21/2022 16 /min Lilly Ernst [place] [facility] 03/21/2022 10:31:51 Date Recorded Body temperature Provider Name a nd Address Organization Details Last Updated DateTime 03/21/2022 97.5 [degF] Lilly Ernst [place] [facility] 03/21/2022 10:31:54 Date Recorded Body height Provider Name an d Address Organization Details Last Updated DateTime 08/21/2023 166.37 cm LillySHANA Mag[place] [facility] 2023 14:03:47 Date Recorded Body mass index (BMI) Body weight Provider Name and Address Organization Details Last Updated DateTime 08/21/2023 39 kg/m2 068704.98 g SHANA Clark [place] [facility] 08/21/2023 14:03:54 Date Recorded Oxygen saturation Oxygen saturation in Arterial blood by Pulse oximetry Provider Name and Address Organization Details Last Updated DateTime 08/21/2023 98 % 98 % SHANA Clark [place] [facility] 08/21/2023 14:03:56 Date Recorded Heart rate Provider Name an d Address Organization Details Last Updated DateTime 08/21/2023 92 /min LillySHANA Magana [place] - [facility] 2023 14:03:58 Date Recorded Respiratory rate Provider Name a nd Address Organization Details Last Updated DateTime 08/21/2023 16 /min LillySHANA Carrillo [place] - [facility] 08/21/2023 14:04:26 Date Recorded Body temperature Provider Name a nd Address Organization Details Last Updated DateTime 08/21/2023 98 [degF] Lilly Ernst SHANA [facility] 08/21/2023 14:04:32 Date Recorded Body height Provider Name an d Address Organization Details Last Updated DateTime 09/15/2023 166.37 cm Lenard Ivy MA [facility] 09/15/19 15:23:27 Date Recorded Body mass index (BMI) Body weight Provider Name and Address Organization Details Last Updated DateTime 09/15/2023 38 kg/m2 630535.48 g Lenard Ivy MA [facility] 09/15/2023 15:26:41 Date Recorded Heart rate Provider Name an d Address Organization Details Last Updated DateTime 09/15/2023 72 /min Lenard Ivy MA [facility] 09/15/19 24 15:28:01 Date Recorded Body temperature Provider Name a nd Address Organization Details Last Updated DateTime 09/15/2023 99.3 [degF] Lenard Ivy MA [facility] 024 15:28:33 Date Recorded Respiratory rate Provider Name a nd Address Organization Details Last Updated DateTime 09/15/2023 16 /min Lenard Ivy MA [facility] 09/15/19 24 15:28:37 Date Recorded Systolic blood pressure Diastolic blood pressure Provider Name and Address Organization Details Last Updated DateTime 03/21/2022 126 mm[Hg] 84 mm[Hg] Lilly Ernst [facility] 02/26 10:36:15 Date Recorded Systolic blood pressure Diastolic blood pressure Provider Name and Address Organization Details Last Updated DateTime 08/21/2023 110 mm[Hg] 80 mm[Hg] SHANA Clark [facility] 08/21/2023 14:10:22 Date Recorded Systolic blood pressure Diastolic blood pressure Provider Name and Address Organization Details Last Updated DateTime 09/15/2023 110 mm[Hg] 78 mm[Hg] Lenard Ivy MA [facility] 09/15/2023 15:27:55 Social History Question Answer Notes LastModified by Organizat ion Details LastModified Time Tobacco Smoking Status Never Smoker Toshia aguila [facility] 11/19/2017 09:58:48 Do You Have An Advance Directive? No Information not available 12/08/2018 What Is Your Level Of Alcohol Consumption? Occasional Information not available 08/21/2023 Are You Blind Or Do You Have Difficulty Seeing? No Information not available 03/21/2022 What Is Your Level Of Caffeine Consumption? Moderate Coffee Information not available 11/19/2017 How Much Tobacco Do You Chew? None Information not available 11/19/2017 In The 14 Days Before Symptom Onset, Have You Had Close Contact With A Laboratory-confir med COVID-19 While That Case Was Ill? No Information not available 12/02/2019 In The 14 Days Before Symptom Onset, Have You Had Close Contact With A Person Who Is Under Investigation For COVID-19 While That Person Was Ill? No Information not available 12/02/2019 Have You Been To An Area Known To Be High Risk For COVID-19? No Information not available 12/02/2019 Are You Currently Employed? Yes [email or web address] Information not available 03/21/2022 Are You Deaf Or Do You Have Serious Difficulty Hearing? No [email or web address] Information not available 03/21/2022 What Type Of Diet Are You Following? REGULAR Information not available 08/21/2023 Which Illicit Or Recreational Drugs Have You Used? Denies Information not available 11/19/2017 Do You Or Have You Ever Used E-cigarettes Or Vape? Never Used Electronic Cigarettes Information not available 12/02/2019 Education 2 Year College Informatio n not available 12/08/2018 What Is Your Occupation? [employer] Information not available 08/21/2023 Are There Any Guns Present In Your Home? No Information not available 12/08/2018 Hard Of Hearing Or Deaf In One Or Both Ears? No Information not available 11/19/2017 Legally Blind In One Or Both Eyes? No Information no t available 11/19/2017 Marital Status Single Informatio n not available 12/08/2018 What Was The Date Of Your Most Recent Tobacco Screening? 09/15/2023 [email or web address] Information not available 09/15/2023 How Many Children Do You Have? 3 Information not available 08/21/2023 Performs Monthly Self-breast Exam? No Information no t available 11/19/2017 What Is Your Relationship Status? Single [email or web address] Information not available 03/21/2022 Do You Use Your Seat Belt Or Car Seat Routinely? Yes [email or web address] Information not available 03/21/2022 Seat Belts Used Routinely Yes Information not available 12/08/2018 Smoke Alarm In Home Yes Information not available 12/08/2018 Do You Have Smoke And Carbon Monoxide Detectors In Your Home? Yes Information not available 08/21/2023 Are You Passively Exposed To Smoke? No [email or web address] Information no t available 03/21/2022 Do You Or Have You Ever Used Smokeless Tobacco? Never Used Smokeless Tobacco Information not available 12/02/2019 How Much Tobacco Do You Smoke? No Information not available 11/19/2017 General Stress Level Low Information not available 12/02/2019 Do You Feel Stressed (tense, Restless, Nervous, Or Anxious, Or Unable To Sleep At Night)? [id number] [email or web address] Information not available 03/21/2022 Do You Use Any Illicit Or Recreational Drugs? No [email or web address] Information not available 03/21/2022 Do You Use Sunscreen Routinely? Yes Information not available 12/08/2018 Has Tobacco Cessation Counseling Been Provided? Yes [email or web address] Information not available 03/21/2022 On What Date Was Tobacco Cessation Counseling Provided? 08/21/2023 Information not available 08/21/2023 How Many Years Have You Smoked Tobacco? 0 Information not available 11/19/2017 Do You Or Have You Ever Used Any Other Forms Of Tobacco Or Nicotine? No Information not available 03/21/2022 Sex: Female Functional Status Question Answer Note LastModified by Organizat ion Details LastModified Time Are you able to care for yourself? Yes [email or web address] Information not available 03/21/2022 What is your exercise level? Occasional Information not available 08/21/2023 Mental Status None recorded. Family History Relationship Description Onset Age of this Age Resolved Age Notes LastModified by Organization Details LastModified Time Father Diabetes mellitus Not available 2017 09:58:26 Sister Hypertensive disorder Not available 2017 09:58:36 Paternal Grandfather Myocardial infarction [email or web address] Not available 14:06:57 Medical History Condition Response Coronary Artery Disease N Other N High Blood Pressure N Atrial Fibrillation N Thyroid Problems N Kidney or Bladder Problems N GI Problems N Depression N COPD N Blood Clots N Skin Problems N Anemia N Heart Attack (ND) N Diabetes N Anxiety Disorder N Muscle, Joint, or Bone Problems N Seizures/Epilepsy N Acid Reflux (GERD) N Cancer N Stroke N Asthma N Allergies N High Cholesterol N Hepatitis N Liver Disease N Headaches N Osteoporosis N Heart Failure N Gynecological History Statement/Question Response Flow Light Date of LMP 09/15/2023 Menses Monthly N Date of Last Pap Smear 12/07/2017 Duration of Flow (days) Age at Menarche 12 Current Control Method Tubal Ligat ion Age at First Child 21 LMP Approximate Obstetrics History GPAL:G 3 P 3 0 0 3 Type Value Full Term 3 Induced 0 Spontaneous 0 Living 3 Total 3 Immunizations Vaccine Type Date Status Note Provider Name and Address Organization Details Recorded Time Rho(D)-IG 12/28/19 16 completed Not Available [facility] 09/03/2023 19:43:38 Rho(D)-IG 03/18/20 16 completed Not Available [facility] 09/03/2023 19:43:38 COVID-19, mRNA, LNP-S, PF, 30 mcg/0.3 mL dose 03/23/20 21 completed Not Available [facility] 09/03/2023 19:43:38 COVID-19, mRNA, LNP-S, PF, 30 mcg/0.3 mL dose 04/13/20 21 completed Not Available [facility] 09/03/2023 19:43:38 Tdap 10/11/19 22 completed Not Available [facility] 09/03/2023 19:43:38 Influenza, split virus, quadrivalent, PF 10/11/19 22 completed Not Available [facility] 09/03/2023 19:43:38 Tdap 12/09/19 19 completed Not Available [facility] 08/14/2019 02:37:33 Influenza, split virus, quadrivalent, preservative 08/29/19 21 cancelled patient objection Sona John APN, FNP-C Attn: Accounting,[address] , [place], [address], [facility] 08/29/2020 09:44:51 TST-PPD intradermal 11/27/19 18 completed Not Available [facility] 09/15/2023 15:12:54 Past Encounters Encounter ID Performer Location Encounter Start Date Encounter Closed Date Diagnosis/Indication Diagnosis SNOMED-CT Code Diagnosis ICD10 Code Diagnosis Note [id number] Sona John APN, FNP-C [facility] (Adult [facility]) [address] [place] [address] 11/19/2017 09:48:34 11/19/2017 17:23:14 Screening for disorder 569135866 Z13.9 Obesity 177417448 E66.9 advised low fat, low cholestero l, low carb diet, regular exercise and weight reduction. Adult heal th examination 527988150 Z00.00 Patient came for routine physical exam. Needs work physical but does not have a form. No active symptoms. Physical exam unremarkab le. [id number] Sona John APN, FNP-C [facility] ([facility]) [address] [place] [address] 11/26/2017 17:56:50 11/28/2017 08:25:00 Tuberculosis screening 472463430 Z11.1 [id number] Sona John APN, FNP-C [facility] ([facility]) [address] [place] [address] 12/08/2018 14:46:59 12/09/2018 10:20:56 Adult health examination 094871413 Z00.01 Patient came for routine physical exam. Needs work physical but does not have a form. No active symptoms. Physical exam unremarkab le. Obesity 160990556 E66.9 advised low fat, low cholestero l, low carb diet, regular exercise and weight reduction. Administra tion of diphtheria, pertussis, and tetanus vaccine 569187898 Z23 [facility] handout provided Prehypertension 21879998 9 R03.0 BP in pre-hypert ensive range, dwp risk, reducing salt and increasing exercise [id number] Sona John APN, FNP-C [facility] ([facility]ult [facility]) [address] [place] [address] 12/02/2019 10:07:35 12/03/2019 06:54:55 Acute conjunctivitis 40093511 H10.32 left eye injected sclera, start abx, dwp warm compress as needed and good hygiene to not spread to others [id number] Sona John APN, FNP-C [facility] ([facility]ult [facility]) [address] [facility] [place] [place] [address] 04/06/2020 08:08:23 04/08/2020 08:26:25 History and physical examination, pre-employment 444173399 Z02.1 exam not in person d/t covid pandemicad vised annual flu vaccine if able to get at pharmacy Obesity 029095853 E66.9 advised low fat, low cholestero l, low carb diet, regular exercise and weight reduction. [id number] Sona John APN, FNP-C [facility] ([facility]) [address] [place] [address] 07/18/2020 08:44:47 07/19/2020 12:07:24 History of migraine 378492155 Z86.69 dwp starting daily prevention medication , used ot be on as child/teen ; will start topiramate 25 mg qhs, dwp r/b/se Gastroesop hageal reflux disease without esophagitis 688548710 K21.9 likely induced by ibu for headaches; diet changes advised, acid lining feller prn [id number] Sona John APN, FNP-C [facility] [address] [place] [address] 08/29/2020 08:26:45 08/30/2020 10:14:52 History of migraine 992640673 Z86.69 dwp starting daily prevention medication , used ot be on as child/teen ; will start topiramate 25 mg qhs, dwp r/b/se, pt currently not taking, will try if headaches start back up Gastroesop hageal reflux disease without esophagitis 355682164 K21.9 likely induced by ibu for headaches; diet changes advised, acid lining feller prn Influenza vaccination declined 293323590 Z28.21 [id number] Sona John APN, [facility] ([facility]) [address] [place] [address] 03/21/2022 10:18:04 03/22/2022 08:10:31 Adult health examination 638545634 Z00.01 Encouraged routine GORE SEAMER, vision, dental exams, well balanced diet. Obesity 204010659 E66.9 advised low fat, low cholestero l, low carb diet, regular exercise and weight reduction. Cholelithi asis without obstruction 15928107 K80.20 CT reviewed, will refer to GS; diet advised [id number] Sona John APN, FNP-C [facility] ([facility]ult [facility]) [address] [place] [address] 08/21/2023 13:43:02 08/26/2023 12:58:32 Adult health examination 018029804 Z00.01 Encouraged routine G[employer] SEAMER, vision, dental exams, well balanced diet. Obesity 826361463 E66.9 advised low fat, low cholestero l, low carb diet, regular exercise and weight reduction. Irregular periods 577698 07 N92.6 advised to see gyne Vitamin D deficiency 347 56510 E55.9 check lab [id number] MD Shamir Sanchez [address] [facility] [address] [place] [address] 09/15/2023 15:10:36 09/22/2023 15:56:46 History of migraine 231683931 Z86.69 Reports migraines without aura almost daily, lasts a few hours each. Tylenol helps. Does not feel the need to see a specialist at this time, would like to continue Tylenol use at this time. Gastroesop hageal reflux disease without esophagitis 011746865 K21.9 Does not endorse any symptoms such as an acidic taste after eating, excessive belching, or burning chest pain. Only takes OTC TUMS if needed. History of abnormal uterine bleeding 689118342 Z87.42 Has had this since 2021 after of last child. Had tubal ligation at that time. Was placed on Medroxypro gesterone for 5 days, helped to slow the heavy bleeding to spotting, however, she is not interested in being on control at this time but wants a more permanent solution. She has been worked up for possible etiologies of AUB such as thyroid studies, previous CBC, and CMP. All showing no leading indication for bleeding. She endorses no abnormal nose bleeds/gum bleeding or easy bruising so PT/PTT not indicated. She does not endorse excessive facial hair or significan t swings in weight. Pap smear with bimanual exam done today. No abnormalit y seen or tenderness to vagina, cervix, uterus or adnexae. Only mild bleeding with speculum exam. It is now appropriat e to have transvagin al US done to look for any structural abnormalit ies. Health Concerns Section Related Observation LastModified by Organization Detai ls LastModified Time None Recorded Concern Status LastModified by Organization Details LastModified Time None Recorded Advance Directives Directive N: Payers Encounter Date Sequence Insurance Name Policy Number Policy Lazcano Covered Member ID Lazcano Member ID Guarantor Name 07/18/[address] [facility] PRIOR TO 01/25/2021 (MEDICAID REPLACEMENT - HMO) Rossy Barbosa [id number] Rossy Barbosa 07/18/2020 2 *SELF PAY* Adelia willis Barbosa 08/29/[address] [facility] PRIOR TO 01/25/2021 (MEDICAID REPLACEMENT - HMO) Rossy Barbosa [id number] Rossy Barbosa 08/29/2020 2 *SELF PAY* Adelia willis Barbosa 03/21/2022 2 *SELF PAY* Adelia willis Barbosa 03/21/[address] [facility] ON OR AFTER 01/25/21 (MEDICAID REPLACEMENT - HMO) Rossy Barbosa [id number] Rossy Barbosa 08/21/2023 2 *SELF PAY* Adelia willis Barbosa 08/21/[address] [facility] ON OR AFTER 01/25/21 (MEDICAID REPLACEMENT - HMO) Rossy Barbosa [id number] Rossy Barbosa 09/15/2023 2 *SELF PAY* Adelia willis Barbosa 09/15/[address] [facility] ON OR AFTER 01/25/21 (MEDICAID REPLACEMENT - HMO) Rossy Smither [id number] Rossy Barbosa Notes Date Note Type Note Provider Name and Address Organization Details Recorded Time 07/18/2020 text/html pt has been taki ng otc tylenol and ibuprofen. Sensitivity at night. Pt has been having issues with acid reflux at night a few hours after she has eaten,migraine headaches in past but these have been all day normal headaches but at night they turn into migraines and usually sleep helps this problem;used to take rx meds as a child; Sona John APN, FNP-C Attn: Accounting,[address], [place], [address], [facility] 07/18/2020 10:14:05 08/29/2020 text/html pt states the GE RD isn't bothering her now, and she isn't taking meds. Pt states she is having migraines at times. Pt believes migraines are stressed induced. HX-last visit: pt has been taking otc tylenol and ibuprofen. Sensitivity at night. Pt has been having issues with acid reflux at night a few hours after she has eaten,migraine headaches in past but these have been all day normal headaches but at night they turn into migraines and usually sleep helps this problem;used to take rx meds as a child; Sona John APN, FNP-C Attn: Accounting,[address], [place], [address], [facility] 08/29/2020 09:49:18 03/21/2022 text/html Here for annual exam,concerns for gallstones; went to ER this week, had CT done, was told to see surgeon, has been eating clean since with no attacks Sona John APN, ANGIE Attn: Accounting,[address], [place], [address], [facility] 03/21/2022 11:10:02 08/21/2023 text/html here for annual exam pt states she just got off her period that lasted 2 months. pt states she had tubal ligation 09/2021 and ever since her periods have been off. pt does not currently have PROGRAMMING SPECIALIST Sona John APN, FNP-C Attn: Accounting,[address] [facility], [place], [address], [place] [facility] [place] 08/21/2023 18:07:41 09/15/2023 text/html Noe is a 32 ye ar old female with a PMH of abnormal uterine bleeding since 2021, GERD, and migraines. She is new to my care and presents to the office to establish care. Had Mirena IUD placed from [id number]. She then had a baby in 2021 (third child) and had her tubes tied afterwards. She states she has been bleeding since then, reports clots and spotting. Recently was seen at [facility] ED on 09/03/23 for abnormal bleeding. She had to call 911 with most recent episode due to her feeling lightheaded with the amount of blood loss. She was prescribed a 5-day course of medroxyprogesterone 5mg, last took them 5-days ago. Was previously seeing Dr. Chung (PROGRAMMING SPECIALIST) but she has since left the area so she is seeking a new specialist. Has had an abnormal pap smear in the past but cannot remember what was stated. She followed up and has been fine since then. No family history of uterine or cervical cancer. Past Medical History - as noted in HPIAllergies: NoneMedications: None at the moment Family HistoryMom: NothingDad: T2DM, HTN, HLDSiblings: Asthma in brother (grew out of it), anxiety and depression in sister Social HistoryRelationship: Currently in relationship, lives with spouseKids: 3Safe: Feels safeWork: [employer] PrimaryDiet: Eggs for breakfast, sandwiches or salads for lunch, pasta for dinnerExercise: 2x a weekETOH: OccasionallyTobacco: NoneDrugs: None Sexual historyPrevious STD:Last time had STD testing: Health maintenanceLast Colonoscopy: N/ALast Mammo: N/APap: Unclear of last one, wants one todayCOVID: Has been vaccinatedFlu: Not interested Ana Scales MD Attn: Accounting,[address] [facility], [place], [address], [place] [facility] [place] 09/22/2023 13:16:38 OBGyn Episode No OBEpisode recorded.
--- OUTSIDE RECORDS SUMMARY | 2024-08-28 19:04 | XMS_ITS | Patient Health Summary ---
Author Organization [facility] Return Path Address [address] [place] [address] Care Team Providers Care Supervisor Fertilizer Processing Name Role Phone Sona John Primary Care Provider [phone] Note from [facility],non-owned Affiliates and Associated Physician Practices is amultiple site organization consisting of ambulatory clinics and hospital sitesin [place], [place], [place] and [place]. This disclosure is being madepursuant to the Care Everywhere program and may not contain all information available regarding this patient. Last updated 18.[facility] Return Path Social History Tobacco Use Types Packs/Day Years Used Date Smoking Tobacco: Never Assessed Sex and Gender Information Value Date Recorded Sex Assigned at Not on file Gender Identity Not on file Sexual Orientation Not on file Care Teams Supervisor Fertilizer Processing Relationship Specialty Start Date End Date Sona John APRN-CNP [address] [place] [id number] PCP - General 10/12/21
--- OUTSIDE RECORDS SUMMARY | 2024-08-28 19:04 | XMS_ITS | Referral Summary ---
Author Organization [facility] [employer] Address [address] [place] [address] Care Team Providers Care Medical Records Supervisor Name Role Phone Sona John CARMELITA-HEALTH CARE FACILITIES INSPECTOR Primary Care Provider [phone] Source Comments [facility],non-owned Affiliates and Associated Physician Practices is amultiple site organization consisting of ambulatory clinics and hospital sitesin [place], [place] and [place]. This disclosure is being madepursuant to the Care Everywhere program and may not contain all information available regarding this patient. Last updated 18.[facility] [employer] Social History Tobacco Use Types Packs/Day Years Used Date Smoking Tobacco: Never Assessed Sex and Gender Information Value Date Recorded Sex Assigned at Not on file Gender Identity Not on file Sexual Orientation Not on file Plan of Treatment Not on file Care Teams Medical Records Supervisor Relationship Specialty Start Date End Date Sona John APRN-HEALTH CARE FACILITIES INSPECTOR [address] [place] [phone] PCP - General 10/12/21
--- OUTSIDE RECORDS SUMMARY | 2024-08-28 19:04 | XMS_ITS | Clinical Summary ---
Author Organization [facility] Care Team Providers Care Quality Assurance Monitor Final Name Role Phone Unavailable Primary Care Provider Unavailabl e Social History Tobacco Use Types Packs/Day Years Used Date Smoking Tobacco: Never Assessed Comments Unknown Sex and Gender Information Value Date Recorded Sex Assigned at Not on file Legal Sex Female 9:31 AM CDT Gender Identity Not on file Sexual Orientation Not on file Plan of Treatment Health Maintenance Due Date Last Done Comments Hepatitis C Virus (HCV) Screening 1990 Hepatitis B Immunization (1 of 3 - 19+ 3-dose series) 2009 Pap Smear 10/30/2011 Cervical Cancer Screening (CCS) 2020 HPV/Cotest 2020 Influenza Immunization (#1) 2024 SARS-COV-2 Immunization ( season) 2024 Respiratory Syncytial Virus (RSV) Immunization (Adult) (1 - 1-dose 75+ series) 2065 DTaP/Tdap/Td Immunization Discontinued 12/08/2018 TdaP Immunization Completed 12/08/2018 Meningococcal Immunization (ACWY) Aged Out No longer eligible based on patient's age to complete this topic Pneumococcal Immunization Combined Aged Out No longer eligible b ased on patient's age to complete this topic Rotavirus Immunization Aged Out No lo nger eligible based on patient's age to complete this topic
--- OUTSIDE RECORDS SUMMARY | 2024-08-28 19:04 | XMS_ITS | Clinical Summary ---
Author Organization [facility] [employer] Address [address] [place] [address] Care Team Providers Care Refinery Operator Name Role Phone Sona John APRN-SEWING MACHINE ASSEMBLER Primary Care Provider [phone]- [phone] Source Comments [facility] [employer],non-owned Affiliates and Associated Physician Practices is amultiple site organization consisting of ambulatory clinics and hospital sitesin [place], [place], [place] and [place]. This disclosure is being madepursuant to the Care Everywhere program and may not contain all information available regarding this patient. Last updated 18.[facility] [employer] Social History Tobacco Use Types Packs/Day Years Used Date Smoking Tobacco: Never Assessed Sex and Gender Information Value Date Recorded Sex Assigned at Not on file Gender Identity Not on file Sexual Orientation Not on file Plan of Treatment Health Maintenance Due Date Last Done Comments PAP SMEAR 1990 HIV SCREENING 2005 HEPATITIS C SCREENING 10/24/2008 DTAP/TDAP/TD VACCINES (1 - Tdap) 2009 HEPATITIS B VACCINE (1 of 3 - 19+ 3-dose series) 2009 COVID-19 VACCINE ( - 2023-2 5 season) 2024 INFLUENZA VACCINE (#1) 2024 DEPRESSION SCREENING 07/28/2024 ZOSTER VACCINE (1 of 2) 2040 HIB VACCINE Aged Out No longer eligi ble based on patient's age to complete this topic HPV VACCINE Aged Out No longer eligi ble based on patient's age to complete this topic MENINGOCOCCAL (Group B) VACCINE Aged Out No longer eligible based on patient's age to complete this topic MENINGOCOCCAL VACCINE Aged Out No dayami tari eligible based on patient's age to complete this topic PNEUMOCOCCAL VACCINE Aged Out No long er eligible based on patient's age to complete this topic Care Teams Refinery Operator Relationship Specialty Start Date End Date Sona John APRN-SEWING MACHINE ASSEMBLER [address] [place] [address] PCP - General 10/12/21
--- OUTSIDE RECORDS SUMMARY | 2024-08-28 19:04 | XMS_ITS | Clinical Summary ---
Author Organization [facility] Address [address] [place] [address] Care Team Providers Care Professor Of Philosophy Name Role Phone Dora Sona Campos NP Primary Care Provider + [phone] Josefina Smith MD Unavailable [phone] Allergies No known active allergies Medications ibuprofen (ADVIL,MOTRIN) 800 mg tablet Take 1 tablet (800 mg total) by mouth 3 (three) times a day. 21 tablet 8 Active Additional Information Patient not taking.Reported on 04/09/2022 famotidine (PEPCID) 40 mg tabletIndicatio ns:Laryngophary ngeal reflux (LPR) Take 1 tablet (40 mg total) by mouth nightly 90 tablet 3 0 Active Additional Information Patient not taking.Reported on 04/09/2022 multivit 74-pnqt-nxjkhy 1-dha (PNV-DHA) 27 mg iron-1 mg -300 mg capsule Take 1 capsule by mouth daily 6 Active HYDROcodone-jefferson taminophen (NORCO) 5-325 mg per tabletIndicatio ns:Pain Take 1 tablet by mouth every 6 (six) hours as needed for pain 8 tablet 2 Active Additional Information Patient not taking.Reported on 04/09/2022 medroxyPROGESTE Felipe (PROVERA) 5 mg tabletIndicatio ns:Abnormal Uterine Bleeding due to Hormonal Imbalance Take 2 tablets (10 mg total) by mouth daily for 5 days 10 tablet 4 Active Active Problems Problem Noted Date Diagnosed Date Calculus of gallbladder with out cholecystitis without obstruction 04/09/2022 Assessment & Plan (04/09/2022 11:24 AM CDT): The patient likely has symptomatic cholelithiasis. She has a 6-month-old daughter at home and has not had any attacks since that initial 1. She would like to try a more watchful approach. We have discussed a low-fat diet. We have discussed the risk of gallstones becoming lodged in 1 of the ducts. If symptoms return she will call us to set up the gallbladder. 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 Surgical History Surgery Date Site/Laterality Comments NO PAST SURGERIES SECTION TUBAL LIGATION 09/25/2021 - 10/25/2021 Medical History Medical History Date Comments GERD (gastroesophageal reflux disease) Family History Medical History Relation Name Comments No Known Problems Father No Known Problems Mother Relation Name Status Comments Father Alive Mother Alive Social History Tobacco Use Types Packs/Day Years Used Date Smoking Tobacco: Never Smokeless Tobacco: Never Tobacco Cessation:Counseling Given: Not Answered Alcohol Use Standard Drinks/Week Comments Not Currently 0 (1 standard drink = 0.6 oz pur e alcohol) AUDIT-C Answer Date Recorded Q1: How often do you have a drink containing alc ohol? Never 06/28/2021 Average Number of Drinks Not on file 021 Frequency of Binge Drinking Not on file 08/2020 Personal Safety Answer Date Recorded Have you ever been in or are you currently in a harmful physical or emotional relationship or is someone making you feel afraid or unsafe? Denies 11/01/2023 Comments No Sex and Gender Information Value Date Recorded Sex Assigned at Not on file Legal Sex Female 3:53 AM AUTO OVERHAULER Gender Identity Not on file Sexual Orientation Not on file Obstetrics History Para Term AB IAB SAB Ectopic Multiple Livin g Live Births 1 Date Outcome GA Total Labor Labor//3rd Weight Sex Type Anes PTL Katia A1 A5 Name Clin Last Filed Vital Signs Vital Sign Reading Time Taken Comments Blood Pressure 166/86 11/01/2023 6:16 PM CDT Pulse 87 11/01/2023 6:16 PM CDT Temperature 36.5 ??C (97.7 ??F) 11/01/2023 6:16 PM CD T Respiratory Rate 20 11/01/2023 6:16 PM CDT Oxygen Saturation 100% 11/01/2023 6:16 PM CDT Inhaled Oxygen Concentration - - Weight 106.6 kg (235 lb) 11/01/2023 6:16 PM CDT Height 170.2 cm (5' 7 ) 11/01/2023 6:16 PM CDT Body Mass Index 36.81 11/01/2023 6:16 PM CDT Plan of Treatment Health Maintenance Due Date Last Done Comments Cervical Cancer Screening 1990 Depression Screening 1990 Hepatitis C Screening 1990 Varicella Vaccines (1 of 2 - 13+ 2-dose series) 10/30/2003 Hepatitis B Screening 2008 Regular Well Visit/Exam 18-64 2008 Influenza Vaccine (#1) 2024 DTaP/Tdap/Td Vaccine (2 - Td or Tdap) 12/08/2028 12/08/2018 HPV Vaccines Aged Out No longer eligi ble based on patient's age to complete this topic Pneumococcal vaccine <65 Aged Out No longer eligible based on patient's age to complete this topic Insurance [facility] MEDICAID [facility] MEDICAID [facility] Care Teams Professor Of Philosophy Relationship Specialty Start Date End Date Sona John NP [address] [facility] [address] [place] [address] PCP - General 07/21/19 Josefina Smith MD [address] [place] [address] Referring Physician Obstetrics and Gynecology 04/09/22
--- OUTSIDE RECORDS SUMMARY | 2024-08-28 19:04 | XMS_ITS | Continuity of Care Document ---
Author Organization [facility] Address [address] [place] [address] Phone Care Team Providers Care Flux Core Welder Name Role Phone Unavailable Unavailable Unavailable Advance Directives Directive Yes / No Effective Date File Name No Information Encounters Encounter Description Practice Location Reason(s) For Visit Diagnoses Date Provider Providers Copied on Encounter [facility], [address], [place], [place], [id number], tel:[phone] [facility] No Information 0 2 No Information Referring Provider: CHEYANNE REED, [address] [place] [address],[place], [address]. tel:[phone] Family History Family Member Type Diagnosis Age At Onset No Information Payers Payer name Insurance type Covered libertarian ID Authoriza tishaina(s) [facility] IN[facility]MN[facility] [id number] Social History Type Description Quantity Date Captured Comments Sex Female Smoking Status No Information Chief Complaint And Reason For Visit No Information History Of Present Illness Encounter Date Complaint History Of Prese nt Illness No Information Instructions Date Instruction Additional Infor mation No Information Assessments Type Assessment Date No Information
--- OUTSIDE RECORDS SUMMARY | 2024-08-28 19:04 | XMS_ITS | Referral Summary ---
Author Organization [facility] Address [address] [place] [address] Care Team Providers Care Insurance Customer Service Specialist Name Role Phone Dora Sona Campos NP Primary Care Provider + [phone] Josefina Smith MD Unavailable [phone] Allergies No known active allergies Medications ibuprofen [...] Information Patient not taking.Reported on 04/09/2022 multivit 89-bnme-ljwczd 1-dha (PNV-DHA) 27 mg iron-1 mg -300 [...] 08/30/2019 Assessment & Plan (08/31/2019 12:39 PM TIRE CHANGER): Pepcid 40 mg nightly Call if no improvement in 3 months for GI referral LPR discussed and Handout provided 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 Never 06/28/2021 Average Number of Drinks Not on file Frequency of Binge Drinking Not on file 08/2020 Personal Safety Answer Date Recorded Have you ever been in or are you currently in a harmful physical or emotional relationship or is someone making you feel afraid or unsafe? Denies 11/01/2023 Comments No Sex and Gender Information Value Date Recorded Sex Assigned at Not on file Legal Sex Female 3:53 AM TIRE CHANGER Gender Identity Not on file Sexual Orientation Not on file Last Filed Vital Signs Vital Sign Reading [...] 11/01/2023 6:16 PM CDT Plan of Treatment Not on file Insurance [facility] MEDICAID [facility] MEDICAID [facility] Care Teams Insurance Customer Service Specialist Relationship Specialty Start Date End Date Sona John NP [address] [place] [address] PCP - General 07/21/19 Josefina Smith MD [address] [address] Referring Physician Obstetrics and Gynecology 04/09/22
[2024-08-28 19:20] VITALS: BP 111/72; PULSE 76; RESP 16; TEMP 36.4; O2SAT 100
--- NOTE | 2024-08-28 19:20 | ED.URI ---
HPI - URI/Sore Throat General Chief Complaint: Upper Respiratory Infection Stated Complaint: Congestion/Cough Time Seen by Provider: 08/28/24 19:20 Source: patient, RN notes reviewed and old records reviewed Mode of arrival: ambulatory Limitations: no limitations History of Present Illness HPI Narrative: 33 year old female presents to [facility] care with complaints of one week duration of some cough and congestion and some sore throat. Patient reports that she has not had fevers or any body aches. Patient reports that she has taken some Tylenol and Ibuprofen and some cough medication.. MD elicited complaint: cough and sore throat Onset (ago): week(s) (1 week) Severity: moderate Able to tolerate fluids by mouth: Yes Treatments prior to arrival: acetaminophen, ibuprofen and other (cough medication) Related Data Home Medications ?Medication ?Instructions ?Recorded ?Confirmed ?Last Taken ?Type No Home Medications 08/28/24 08/28/24 Unknown History Allergies Allergy/AdvReac Type Severity Reaction Status Date / Time No Known Allergies Allergy Verified 08/28/24 19:26 Review of Systems Review of Systems: CONSTITUTIONAL: Denies malaise, chills, sweats, or fever. EYES: Denies visual changes, redness, or discharge. ENT: Reports rhinorrhea, congestion, sinus pain, no otalgia and positive for sore throat. CARDIOVASCULAR: Denies chest pain, palpitations, or edema. RESPIRATORY: Reports cough.? Denies dyspnea. GASTROINTESTINAL: Denies abdominal pain, nausea, vomiting, diarrhea SKIN: Denies rash or itching. MUSCULOSKELETAL: Denies myalgia. NEUROLOGIC: Denies headache. All systems reviewed & are unremarkable except as noted in HPI and below PMFSH Past Medical History Medical History Prediabetes Cholecystitis (vaginal after ) x2 Surgical History Surgical History H/O tubal ligation [place] teeth removed H/O section X1 Family History Family History Father Diabetes mellitus Mother Alive and well Social History Social History Smoking status: Never smoker Second hand tobacco smoke exposure: Yes Alcohol intake: current Alcohol use details: sometimes Substance use: never Substance use type: does not use Lack of Transportation: No Lack of Food: Never True Current Housing: I Have Housing Concerned About Future Housing: No Difficulty Paying Gas/Electric Bills: No Difficulty Paying for Meds: No Currently Unemployed: No Education: High School Diploma/GED Difficulty w/ Childcare or Family Care: No Living arrangements: with family Occupation/Education: occupation Gender identity (if verbalized by the patient): Female Spiritual care concerns: No Comments At time of signature, agree with nursing past medical, surgical, social and family history. There is no relevant family history pertinent to the presenting complaint Exam Narrative: GENERAL: Well-appearing, well-nourished, and in no acute distress. HEAD: Normocephalic EYES: PERRLA, conjunctivae clear ENT: Nares clear, turbinates edematous and erythematous, clear discharge. Mucous membranes moist. TM pearly ascencio with dull light reflex bilaterally; no tragal tenderness. Oropharynx erythematous without lesions. Tonsils not enlarged and without exudate, no drooling, no hoarseness, no trismus, uvula midline, post nasal drainage NECK: Supple. No lymphadenopathy CHEST: Clear to auscultation, breath sounds equal. No wheezing, rhonchi, rales, or stridor. No respiratory distress, speaks in full sentences. occasional cough non-productive, SAO2 100% on room air HEART: Regular rate and rhythm. No murmur heard. SKIN: Warm, dry, no rash. NEURO: Alert and oriented x3. PSYCH: Normal mood and affect Course Course Emergency Course: Patient is aware of diagnosis, understands and agrees to treatment plan.? Anticipatory guidance given.? Patient agrees to follow-up as directed and is aware of reasons to seek care at the emergency department. Portions of this record may have been created with voice recognition software Level of Care: Express Care Visit Vital Signs Vital signs: Vital Signs Temperature 36.4 C 08/28/24 19:20 Pulse Rate 76 08/28/24 19:20 Respiratory Rate 16 08/28/24 19:20 Blood Pressure 111/72 08/28/24 19:20 Pulse Oximetry 100 08/28/24 19:20 Oxygen Delivery Room Air 08/28/24 19:20 Temperature 36.4 C 08/28/24 19:20 Pulse Rate 76 08/28/24 19:20 Respiratory Rate 16 08/28/24 19:20 Blood Pressure 111/72 08/28/24 19:20 Pulse Oximetry 100 08/28/24 19:20 Oxygen Delivery Room Air 08/28/24 19:20 Reviewed MDM - URI/Sore Throat MDM Narrative Medical decision making narrative: Differential diagnosis considered: Brandon virus, strep pharyngitis, allergic rhinitis, upper respiratory tract infection, sinusitis, rhinosinusitis, nasopharyngitis. viral pharyngitis, otitis media, otitis externa, pneumonia, bronchitis, viral cough syndrome, viral syndrome, and influenza.? Exam findings show no acute concerns or changes; patient is non-toxic appearing and is in no distress.? Patient is appropriate for outpatient treatment and follow-up. Differential Diagnosis Differential diagnosis: Likely upper respiratory infection, sinusitis, viral infection, influenza, pharyngitis and other (strep pharyngitis, COVID) Medical Records Attestation: I reviewed the patient's medical records. Lab Data Attestation: I reviewed the patient's lab results. Lab results narrative: Influenza A negative, Influenza B negative, COVID antigen negative, strep screen negative, culture sent Labs: Lab Results 08/28/24 Range/Units 20:00 POC Influenza A Ag Negative (Negative) POC Influenza B Ag Negative (Negative) POC SARS CoV-2 Ag Negative (Negative) POC Grp A Strep Screen Negative (Negative) reviewed Critical Care Time Critical Care Time Critical Care Time: No Discharge Plan Discharge Clinical Impression: Upper respiratory infection Qualifiers: URI type: unspecified URI Qualified Code(s): J06.9 - Acute upper respiratory infection, unspecified Pharyngitis Qualifiers: Pharyngitis/tonsillitis etiology: unspecified etiology Qualified Code(s): J02.9 - Acute pharyngitis, unspecified Patient Disposition: Home, Self-Care Condition: Stable Instructions: Antibiotic Form, Upper Respiratory Infection (ED) Additional Instructions: Increase fluids especially juices and water [id number] cough and cold medicine of your choice for your symptoms Zyrtec Claritin or Maria G daily heat to the face 20-30 minutes 4-6 times a day for pain Salt water gargles, throat lozenges or throat sprays as desired Tylenol or ibuprofen for any fever pain Mucinex daily drink plenty of fluids with this medication Your strep test today was negative. A throat culture will be sent to the laboratory for further testing. IF the test is positive, you will receive a phone call within 48 hours and an appropriate antibiotic will be initiated at that time. Patient Language: [place] Prescriptions: No Action No Home Medications Follow-up/Referrals: John,Sona Waters APN [Primary Care Provider] - Time of Disposition: 19:51 Quality Juan Coma Scale Eyes: Open Verbal: Oriented and Alert Motor: Follows Commands Juan Coma Total Score: 15
[2024-08-28 20:04] LABS: EDCOVIDSCREEN Negative (Negative); EDINFLUASCREEN Negative (Negative); EDINFLUBSCREEN Negative (Negative); EDSTREPNEGPOS1 Negative (Negative)
== END 2024-08-28 20:00 | disposition home or self-care (01) ==
PROVIDERS: Emergency Provider Registered Nurse; PCP Nurse Practitioner Family
DX: J06.9 Acute upper respiratory infection, unspecified (principal); J02.9 Acute pharyngitis, unspecified; Z20.822 Contact with and (suspected) exposure to COVID-19; R73.03 Prediabetes
CPT/HCPCS: 87081; 87426; 87804; 87880; 99213; G0463

== ENCOUNTER 2025-07-11 13:09 | Emergency (ER) | payer OTHER, SELFPAY ==
[2025-07-11 13:20] VITALS: BP 142/82; PULSE 87; RESP 20; TEMP 36.6; O2SAT 100
--- NOTE | 2025-07-11 13:41 | ED.URI ---
HPI - URI/Sore Throat General Chief Complaint: Upper Respiratory Infection Stated Complaint: throat/nose/aches Time Seen by Provider: 07/11/25 13:41 Source: patient, family, RN notes reviewed and old records reviewed Mode of arrival: ambulatory Limitations: no limitations History of Present Illness HPI Narrative: 34 year old female with complaints of sore throat , nasal drainage and body aches for the past 2 days and has been taking some Mucinex for her symptoms.Patient reports that throat is very sore and increased pain with swallowing. Patient reports no known fevers. MD elicited complaint: sore throat, rhinorrhea, nasal congestion and other (body aches) Onset (ago): day(s) (2) Consistency: constant Pain scale (0-10): 6 Able to tolerate fluids by mouth: Yes Exacerbating factors: swallowing Treatments prior to arrival: other (Mucinex) Related Data Allergies Allergy/AdvReac Type Severity Reaction Status Date / Time No Known Allergies Allergy Verified 07/11/25 13:33 Review of Systems Review of Systems: CONSTITUTIONAL:Reports malaise, no chills, sweats, or fever. EYES: Denies visual changes, redness, or discharge. ENT: Reports rhinorrhea, congestion, sinus pain,no otalgia and + sore throat. CARDIOVASCULAR: Denies chest pain, palpitations, or edema. RESPIRATORY: Reports no acute cough.? Denies dyspnea. GASTROINTESTINAL: Denies abdominal pain, nausea, vomiting, diarrhea SKIN: Denies rash or itching. MUSCULOSKELETAL: positive for myalgia. NEUROLOGIC: Denies headache. All systems reviewed & are unremarkable except as noted in HPI and below PMFSH Past Medical History Medical History Prediabetes Cholecystitis (vaginal after ) x2 Surgical History Surgical History H/O tubal ligation [place] teeth removed H/O section X1 Family History Family History Father Diabetes mellitus Mother Alive and well Social History Social History Smoking status: Never smoker Second hand tobacco smoke exposure: Yes Alcohol intake: current Alcohol use details: sometimes Substance use: never Substance use type: does not use Lack of Transportation: No Lack of Food: Never True Current Housing: I Have Housing Concerned About Future Housing: No Difficulty Paying Gas/Electric Bills: No Difficulty Paying for Meds: No Currently Unemployed: No Education: High School Diploma/GED Difficulty w/ Childcare or Family Care: No Living arrangements: with family Occupation/Education: occupation Gender identity (if verbalized by the patient): Female Spiritual care concerns: No Comments At time of signature, agree with nursing past medical, surgical, social and family history. There is no relevant family history pertinent to the presenting complaint Exam Narrative: GENERAL: Well-appearing, well-nourished, and in no acute distress. HEAD: Normocephalic EYES: PERRLA, conjunctivae clear ENT: Nares clear, turbinates edematous and erythematous, clear discharge. Mucous membranes moist. TM pearly ascencio with dull light reflex bilaterally; no tragal tenderness. Oropharynx erythematous without lesions. Tonsils red enlarged and without exudate, no drooling, no hoarseness, no trismus, uvula midline, post nasal drainage noted. NECK: Supple. No lymphadenopathy CHEST: Clear to auscultation, breath sounds equal. No wheezing, rhonchi, rales, or stridor. No respiratory distress, speaks in full sentences.SAO2 100% on room air HEART: Regular rate and rhythm. No murmur heard. SKIN: Warm, dry, no rash. NEURO: Alert and oriented x3. PSYCH: Normal mood and affect Course Course Level of Care: Express Care Visit Vital Signs Vital signs: Vital Signs Temperature 36.6 C 07/11/25 13:20 Pulse Rate 87 07/11/25 13:20 Respiratory Rate 07/11/25 13:20 Blood Pressure 142/82 H 07/11/25 13:20 Pulse Oximetry 100 07/11/25 13:20 Oxygen Delivery Room Air 07/11/25 13:20 Temperature 36.6 C 07/11/25 13:20 Pulse Rate 87 07/11/25 13:20 Respiratory Rate 07/11/25 13:20 Blood Pressure 142/82 H 07/11/25 13:20 Pulse Oximetry 100 07/11/25 13:20 Oxygen Delivery Room Air 07/11/25 13:20 reviewed [facility] Narrative Medical decision making narrative: Patient has tested positive for strep pharyngitis only negative for COVID and Influenza will treat with oral antibiotic and recommend OTC medications for any pain or fever and symptom control. Anticipatory guidance and reasons to seek care at ED reviewed with understanding voiced. Differential Diagnosis Differential Diagnosis: Differential diagnostic considerations for upper respiratory infection include upper respiratory infection, croup, otitis media, sinusitis, viral infection, bronchitis, influenza, pharyngitis, strep, uvulitis.? Lab Data [facility] Lab Attestation statement: I personally reviewed the patient's lab results. Lab results narrative: strep screen positive, COVID antigen negative, Influenza A&B negative Labs: Lab Results 07/11/25 Range/Units 13:25 POC Influenza A Ag Negative (Negative) POC Influenza B Ag Negative (Negative) POC SARS CoV-2 Ag Positive (Negative) POC Grp A Strep Screen Negative (Negative) Critical Care Time Critical Care Time Critical Care Time: No Discharge Plan Discharge Clinical Impression: Acute streptococcal pharyngitis Patient Disposition: Home Condition: Stable Instructions: Antibiotic Form, Strep Throat (ED) Additional Instructions: You tested positive for Group A strep . Take the entire course of antibiotics. Throw away your current toothbrush and begin using a new toothbrush in 48 hours in order to prevent re-infection. Sanitize all reusable water bottles . Do not share items with others. Salt water gargles may alleviate some of the throat discomfort. You can take Tylenol or ibuprofen per the package instructions for pain/fever. would recommend you retest for COVID tomorrow ands the day after since daughter is positive If your symptoms persist, change or worsen significantly before you can contact your personal physician then please, without delay, go to the emergency department for further evaluation. Follow-up with PCP in 7-10 days or sooner if needed Follow up with PCP soon in regards to your blood pressure which is elevated above threshold for referral. Blood pressure above 120/80 may indicate pre-hypertension.142/82 Patient Language: Norwegian Prescriptions: New amoxicillin 500 mg capsule 1,000 mg PO Q12H 10 Days Qty: 40 0RF Follow-up/Referrals: John,Sona Waters APN [Primary Care Provider, Unknown] Stand Alone Forms: Work/School Release IP Time of Disposition: 14:11 Quality Juan Coma Scale Eyes: Open Verbal: Oriented and Alert Motor: Follows Commands Tererro Coma Total Score: 15
[2025-07-11 14:01] LABS: EDCOVIDSCREEN Positive (Negative); EDINFLUASCREEN Negative (Negative); EDINFLUBSCREEN Negative (Negative); EDSTREPNEGPOS1 Negative (Negative)
--- OUTSIDE RECORDS SUMMARY | 2025-07-11 14:02 | XMS_ITS | Clinical Summary ---
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 Unavailable Primary Care Provider [...] 19+ 3-dose series) 2009 Pap Smear 10/30/2011 Human Papillomavirus (HPV) Immunization (1 - 3-dose SCDM series) 2017 Cervical Cancer Screening (CCS) 2020 HPV/Cotest 2020 Influenza Immunization (#1) 2025 SARS-COV-2 Immunization ( season) 2025 Respiratory Syncytial Virus (RSV) Immunization (Adult) (1 - 1-dose 75+ series) 2065 DTaP/Tdap/Td Immunization Discontinued 12/08/2018 TdaP Immunization Completed 12/08/2018 Meningococcal Immunization (ACWY) Aged Out No longer eligible based on patient's age to complete this topic Pneumococcal Immunization Combined Aged Out No longer eligible based on patient's age to complete this topic Rotavirus Immunization Aged Out No lo nger eligible based on patient's age to complete this topic
--- OUTSIDE RECORDS SUMMARY | 2025-07-11 14:02 | XMS_ITS | Clinical Summary ---
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 Gender Identity Not on file Sexual Orientation [...] 87 11/01/2023 6:16 PM CDT Temperature 36.5 C (97.7 F) 11/01/2023 6:16 PM CDT Respiratory Rate 20 11/01/2023 6:16 PM CDT Oxygen Saturation 100% 11/01/2023 6:16 PM CDT Inhaled Oxygen Concentration - - Weight 106.6 kg (235 lb) 11/01/2023 6:16 PM CDT Height 170.2 cm (5' 7) 11/01/2023 6:16 PM CDT Body Mass Index 36.81 11/01/2023 6:16 PM CDT Plan of Treatment Health Maintenance Due Date Last Done Comments Cervical Cancer Screening 1990 Depression Screening 1990 Hepatitis C Screening 1990 Varicella Vaccines (1 of 2 - 13+ 2-dose series) 10/30/2003 Hepatitis B Screening 2008 Regular Well Visit/Exam 18-64 2008 HPV Vaccines (1 - 3-dose SCD M series) 2017 Influenza Vaccine (#1) 2025 DTaP/Tdap/Td Vaccine (2 - Td or Tdap) 12/08/2028 12/08/2018 Pneumococcal vaccine <65 Aged Out No longer eligible based on patient's age to complete this topic Insurance [facility] MEDICAID [place] [id number] [facility] Care Teams Proof Carrier Relationship Specialty Start Date End Date John, Sona Campos NP [address] [place] [address] PCP - General 07/21/19 Josefina Smith MD [address] [facility] [address] [facility] [address] [place] [address] Referring Physician Obstetrics and Gynecology 04/09/22
--- OUTSIDE RECORDS SUMMARY | 2025-07-11 14:02 | XMS_ITS | Data Portability ---
Author Organization [facility] [place] Address [address] [place] [address] [address] Care Team Providers Care Math Interventionist Name Role Phone AWILDA BOYLE Primary Care Provider [phone] Assessment Encounter Date Assessment Date Assessment LastModified [...] Orders Provera 10 mg tablet 021 [id number], [address], [place], [place], [id number], 10:24:50 Patient TargetsNo targets recorded. Patient InstructionsNo instructions recorded. Reason for Referral None Reported. Results Created Date Observation Date Name Description Value Unit Range Abnormal Flag Note LastModifiedBy Organization Detail LastModifiedTime 12/20/19 21 12/19/2020 pap, IG + HR HPV image guided Pap, HPV regardless of Pap result SEE RESULT S BELOW CASE REPOR T: Cytol ogy Gynec ologi greg Repor t Case: [id number] Autho edwardosingh harmony Provi lashay: Anand paniagua , José Camara cted: 12/19 1442 SOFTWARE APPLICATIONS DESIGNER Order ing Locat ion: [place] [facility] Recei shyam: 12/20 0003 First Scree n: Ge Bourgeois ed, CT Speci men: Scree erin Pap - Image d, Cervi x STATE MENT OF ADEQU ACY: Satis facto ry for evalu ation Trans forma tion zone compo nent prese nt FINAL DIAGN OSIS: Negat onur for Intra epith elial Lesio n or Malig earline Elect laney espinoza myles d by Ge [...] appli cable ): Other Histo ry: Hormo gina (if appli cable ): PAP EDUCA JESUS [...] as clini moises blackmon nted. Not Available [facility] (Lab) [address], [place], [address], 12/20/2020 15:55:19 Result Notes None recorded. Problems Name Problem SNOMED Code Status Onset Date Resolution Date Notes Provider Name and Address Organization Details Recorded Time Pregnanc y detectio n examinat ion Completed 201511/26/2020 Encounte r for pregnanc y test, result positive ;Recorde d Elsewher e: No Locat ion: [facility] S ource: EHR Foreign Car Mechanic cindi: Eva Chaves ce ID: 0001 Pancho lable Time: 03:15:00 PM [facility] 19:45:31 Amenorrh ea [id number] Completed 201511/26/2020 Amenorrh ea;Recor ded Elsewher e: No Locat ion: [facility] S ource: EHR Foreign Car Mechanic cindi: Eva Chaves ce ID: 0001 Pancho lable Time: 03:15:00 PM [facility] 19:44:[address] Concept Completed 201511/26/2020 Maternal care for oth abnormal ity and damage, unsp;Rec orded Elsewher e: No Locat ion: [facility] S ource: EHR Foreign Car Mechanic icndi: N Practi ce ID: 0001 Pancho lable Time: 08:00:00 AM Debora Pretty [facility] 19:45:43 Gestatio n period, 21 weeks [id number] Completed 201511/26/2020 21 weeks gestatio n of pregnanc y;Practi ce ID: 0001 [facility] 19:45:08 Normal pregnanc y in multigra anand [id number] 4106 Completed 201511/26/2020 Encounte r for supervis ion of other normal pregnanc y, 3rd trimeste r;Record ed Elsewher e: No Locat ion: [facility] S ource: EHR Foreign Car Mechanic cindi: N Practi ce ID: 0001 Pancho lable Time: 02:45:00 PM Debora Pretty [facility] 19:45:28 Uterine size for dates discrepa ncy Completed 201511/26/2020 Uterine size-nano e discrepa ncy, third trimeste r;Record ed Elsewher e: No Locat ion: [facility] S ource: EHR Foreign Car Mechanic cindi: N Practi ce ID: 0001 Pancho lable Time: 05:30:00 PM Debora aguila [facility] 19:45:56 Gestatio n period, 33 weeks [id number] Completed 201511/26/2020 33 weeks gestatio n of pregnanc y;Record ed Elsewher e: No Locat ion: [facility] S ource: EHR Foreign Car Mechanic cindi: N Practi ce ID: 0001 Pancho lable Time: 05:30:00 PM Debora Pretty [facility] 19:45:11 Lacerati on of female perineum Completed 201511/26/2020 Second degree perineal lacerati on during delivery ;Practic e ID: 0001 Debora [facility] 19:45:20 Single live from singleto n pregnanc y [id number] Completed 201511/26/2020 Single live ;Pr actice ID: 0001 Debora Pretty [facility] 19:45:39 Syphilis test finding 126965960 Completed 201511/26/2020 Encntr screen for infectio ns w sexl mode of transmis s;Record ed Elsewher e: No Locat ion: [facility] S ource: EHR Foreign Car Mechanic cindi: N Practi ce ID: 0001 Pancho lable Time: 11:00:00 AM Debora Pretty [facility] 19:45:53 Procedur e by method Completed 201511/26/2020 Encounte r for other general counseli ng and advice on contrace ption;Re corded Elsewher e: No Locat ion: [facility] S ource: EHR Foreign Car Mechanic cindi: N Practi ce ID: 0001 Pancho lable Time: 11:00:00 AM Debora Pretty [facility] 19:45:05 Lochia finding Completed 201511/26/2020 Encounte r for routine postpart um follow-u p;Record ed Elsewher e: No [facility]: E[facility] Foreign Car Mechanic cindi: N Practi ce ID: 0001 Pancho lable Time: 11:00:00 AM Debora Pretty [facility] 19:45:23 Insertio n of intraute rine contrace ptive device Completed 201511/26/2020 Encounte r for insertio n of intraute rine contrace ptive device;R ecorded Elsewher e: No Locat ion: [facility] S ource: EHR Foreign Car Mechanic cindi: N Practi ce ID: 0001 Pancho lable Time: 03:00:00 PM Debora Pretty [facility] 19:45:18 Clinical finding Completed 201511/26/2020 Presence of (intraut erine) contrace ptive device;R ecorded Elsewher e: No Locat ion: [facility] S ource: EHR Foreign Car Mechanic cindi: N Practi ce ID: 0001 Pancho lable Time: 03:00:00 PM Debora Pretty [facility] 19:44:58 Pregnanc y test negative [id number] Completed 201511/26/2020 Encounte r for pregnanc y test, result negative ;Recorde d Elsewher e: No Locat ion: [facility] S ource: EHR Foreign Car Mechanic cindi: N Practi ce ID: 0001 Pancho lable Time: 03:00:00 PM Debora Pretty [facility] 19:45:33 Contrace ptive sheath status [id number] Completed 201511/26/2020 IUD follow up;Recor ded Elsewher e: No Locat ion: [facility] S ource: EHR Foreign Car Mechanic cindi: N Practi ce ID: 0001 Pancho lable Time: 03:45:00 PM Debora Pretty [facility] 19:45:02 Infectio n screenin g Completed 201711/26/2020 Encounte r for screenin g for oth infec/pa rastc diseases ;Recorde d Elsewher e: No Locat ion: [facility] S ource: EHR Foreign Car Mechanic cindi: N Practi ce ID: 0001 Pancho lable Time: 02:30:00 PM Debora Pretty [facility] 19:45:[address] Concept Completed 201711/26/2020 Encntr for food concession manager exam (general ) (routine ) w/o abn findings ;Recorde d Elsewher e: No Locat ion: [facility] S ource: EHR Foreign Car Mechanic cindi: N Practi ce ID: 0001 Pancho lable Time: 02:30:00 PM Debora Pretty [facility] 19:45:49 Screenin g for malignan t neoplasm of cervix Completed 201711/26/2020 Screenin g for malignan t neoplasm s of the cervix;R ecorded Elsewher e: No Locat ion: [facility] S ource: EHR Foreign Car Mechanic cindi: N Practi ce ID: 0001 Pancho lable Time: 02:30:00 PM Debora Pretty [facility] 19:45:[address] Concept Completed 201811/26/2020 Encntr for general adult medical exam w/o abnormal findings ;Recorde d Elsewher e: No Locat ion: [facility] S ource: EHR Foreign Car Mechanic cindi: N Rainati ce ID: 0001 Pancho lable Time: 08:30:00 AM Debora Pretty [facility] 19:45:46 Problem Notes None recorded. Procedures Surgical History Date Name Laterality Status Provider Name and Address Organization Details Recorded Time 12/20/19 21 Date of Last Pap Smear completed Debora Pretty [facility] 12/19/2020 10:03:07 11/29/19 21 IUD Removal completed Maria E Curry [facility]- [address], [place], [address], [facility] 11/28/2020 10:35:16 05/30/20 16 insertion of intrauterine contraceptive device completed AVE [address], [place], [address], [facility] 11/30/2019 10:03:46 07/28/19 12 delivery completed Annalisa Valente [facility] 11/29/2019 17:19:03 extraction of wisdom tooth completed Debora Pretty [facility] 11/28/2020 10:16:04 Imaging Results None recorded. [...] Prescrib ed Elsewher e: No Locat ion: [facility] odify By: eric torres DateTime : 01/05/20 16 12:47:57 PM Not Available Not Available Not Available Nellieveen-D uo DHA 29 mg-1 mg-400 mg oral pack take 1 by Oral route 01/03 completed Prescrib ed Elsewher e: No Locat ion: [facility]ify By: karena kauffman DateTime : 01/03/20 16 09:15:35 AM Not Available Not Available Not Available Vitals Date Recorded Body height Body mass index (BMI) Body weight Systolic And Diastolic Provider Name and Address Organization Details Last Updated DateTime 11/28/2020 165.74 cm 38.6 kg/m2 471030.9 g 117/83 mm[Hg] Debora [facility] 11/28/2020 10:11:52 Date Recorded Body height Body mass index (BMI) Body weight Systolic And Diastolic Provider Name and Address Organization Details Last Updated DateTime 11/30/2019 165.74 cm 37.2 kg/m2 346326.28 g 124/80 mm[Hg] Annalisabeba Valente [facility] 11/30/2019 09:48:36 Date Recorded Body height Body mass index (BMI) Body weight Systolic And Diastolic Provider Name and Address Organization Details Last Updated DateTime 12/19/2020 165.74 cm 38.1 kg/m2 842081.84 g 121/80 mm[Hg] Debora [facility] 12/19/2020 10:02:37 Social History Question Answer Notes LastModified by Qewzizat ion Details LastModified Time Tobacco Smoking Status Never Smoker [facility] 12/19/2020 10:02:41 Do You Have An Advance Directive? No Information n ot available 12/19/2020 Are You Blind Or Do You Have [...] No Information not available 11/28/2020 Are You Deaf Or Do You Have Serious Difficulty Hearing? No Information not available 11/26/2020 What Type Of Diet Are You Following? REGULAR Information n ot available 11/26/2020 What Is The Highest Grade Or Level Of School You Have Completed Or The Highest Degree You Have Received? [id number] Information not available 11/28/2020 Are There Any [...] Information not available 12/19/2020 Do You Use Sunscreen Routinely? Yes Information not available 11/26/2020 Have You Used IV Drugs? No Information not available 12/19/2020 Sex: Unknown Functional Status Question Answer Note LastModified by Organizat ion Details LastModified Time Do you use any illicit or recreational drugs? No Information not available 11/26/2020 What is your level of alcohol consumption? None jgumber Information not available 11/30/2019 Are you currently employed? Yes Information not available 12/19/2020 Are you able to walk independently without assistance or assistive devices? 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 Occasional Information not available 11/26/2020 Mental Status Question Answer Note LastModified by Organization D etails LastModified Time Do you feel stressed (tense, restless, nervous, or anxious, or unable to sleep at night)? [id number] Information not available 11/26/2020 Family History Relationship Description Onset Age of this Age Resolved Age Notes LastModified by Organization Details LastModified Time Father Diabetes mellitus Not available 2020 10:13:36 Medical History Condition Response Allergies (Food, seasonal, environmental ) N Other N Breast Cancer N Drug/Latex Allergies/Reactions N Blood Transfusion N Dermatologic Disorders N Lung Disease N Defects or Inherited Disease N Breast Problem N Gestational Diabetes N Hematologic disorders N Anesthesia Complications N History of STI N Deep Vein Thrombosis N Polycystic ovary syndrome N Anxiety Disorder N Autoimmune disease N Arthritis N Infertility N Polyps N Acid Reflux (GERD) N History of abnormal pap N Cancer N Stroke N Varicosities N Neurologic/Epilepsy N Endometriosis N High Cholesterol N Headaches N Fibromyalgia N Kidney Disease N Heart Problems N Kidney or Bladder Problems N Thyroid Problems N GI Problems N Eating Disorder N Anemia N Art (IVF or FET) N Psychiatric Illness N Ovarian Cancer N Diabetes N Pulmonary (TB, Asthma) N Hepatitis/Liver Disease N No Past Medical History N Eczema N Urinary Tract Infection N Abuse/Domestic Violence N Asthma N Trauma/Violence N Depression/ depression N Heart Disease N Pre-Eclampsia N Hypertension N Osteoporosis N Thrombophilias N Gynecological History Statement/Question Response Flow Light [...] Diagnosis SNOMED-CT Code Diagnosis ICD10 Code Diagnosis IMO Codes Diagnosis Note [id number] Maria E Curry [facility] [address],[place] [address] 11/30/2019 09:40:33 11/30/2019 10:12:06 Gynecologic examination 74324825 Z01.419 Take Calcium with Vitamin D 1200mg [...] SBE taught & monthly checks encouraged . [id number] Maria E Curry [facility] [address],[place] [address] 11/28/2020 09:55:24 11/28/2020 10:43:47 Removal of intrauterine device 54562990 Z30.432 She states the symptoms are of [...] restart with the next 90d or sooner. [id number] [facility] [address],[place] [address] 12/19/2020 09:50:26 12/19/2020 10:41:33 Gynecologic examination 38711069 Z01.419 Take Calcium with Vitamin D 1200mg [...] & monthly checks encouraged . Irregular periods 460437 07 N92.6 IUD removed Early November 2020. [...] None Recorded Advance Directives Directive N: Payers Insurance Date Sequence Insurance Name Policy Number Policy Lazcano Covered Member ID Lazcano Member ID Guarantor Name 12/19/2020 1 [facility] - DOS PRIOR TO 2021 (MEDICAID REPLACEMENT - HMO) Rossy Barbosa [id number] Rossy Barbosa Notes Date Note Type Note Provider Name and Address Organization Details Recorded Time 11/30/19 20 text/ht ml Annual GYNReported by PatientGenitourinary symptomsFor menstrual cycle, patient reportsnormal menses. For urinary symptoms, patient reportsno hematuriaandno incontinence. For vulva, patient reportsno genital lesion. For vagina, patient reportsnormal vaginal discharge.Breast symptomsFor breast, patient reportsno breast pain,no breast lump, andno nipple discharge.ContraceptionFor current contraception, patient reportssatisfied with current contraceptionandintrauterine device (iud).Endocrine symptomsFor sexual complaints, patient reportsno sexual complaints,no pain during intercourse, andnormal libido. For menopausal symptoms, patient reportsno menopausal symptomsandnormal vaginal lubrication.Psychological symptomsFor psychological symptoms, patient reportsno depression,no anxiety, andno pmdd.Preventative measuresFor preventive measures, patient reportsencourage self breast examination,encourage regular exercise, andencourage no tobacco use. Maria E Curry [facility] [address], [place], [address], [facility] 11/30/2019 10:05:29 11/29/19 21 text/ht ml ROS as noted in the HPI Here for IUD removal Maria E Curry [facility] [address], [place], [address], [facility] 11/28/2020 10:37:31 12/20/19 21 text/ht ml Annual GYNReported by PatientGenitourinary symptomsFor urinary symptoms, patient reportsno hematuriaandno incontinence. For vulva, patient reportsno genital lesion. For vagina, patient reportsnormal vaginal discharge. For menstrual cycle, (only 1 menses since having iud removed november 2020.neg upt's at this point.is open to .).Breast symptomsFor breast, patient reportsno breast pain,no breast lump, andno nipple discharge.ContraceptionFor current contraception, patient reportsbirth control not practiced.Endocrine symptomsFor sexual complaints, patient reportsno sexual complaints,no pain during intercourse, andnormal libido. For menopausal symptoms, patient reportsno menopausal symptomsandnormal vaginal lubrication.Psychological symptomsFor psychological symptoms, patient reportsno depression,no anxiety, andno pmdd.Preventative measuresFor preventive measures, patient reportsencourage self breast examination,encourage regular exercise,encourage no tobacco use, andencourage regular mammograms starting age 40. Maria E Curry, ALEXANDRU- [address], [place], [address], [facility] 12/19/2020 10:36:35 OBGyn Episode Ob Episode Information Episode Created Date Number of Fetuses Patient Bloodtype Patient rh Status Prepregnancy Weight lbs Domestic Partner Domestic Partner Phone Father Name Clinical Staff Rn Status 11/30/19 20 1 CLOSED Fetus Data First Name Last [...] Domestic Partner Domestic Partner Phone Father Name Clinical Staff Rn Status 11/30/19 1 CLOSED Fetus Data First [...]
--- OUTSIDE RECORDS SUMMARY | 2025-07-11 14:02 | XMS_ITS | Clinical Summary ---
Author Organization [facility] Address [address] [place] [address] Care Team Providers Care Ending Machine Operator Name Role Phone Sona John APRN-CLIENT SOLUTIONS DIRECTOR Primary Care Provider [phone] Source Comments [facility],non-owned Affiliates and Associated Physician Practices is amultiple site organization consisting of ambulatory clinics and hospital sitesin [place], [place], [place] and [place]. This disclosure is being madepursuant to the Care Everywhere program and may not contain all information available regarding this patient. 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 Gender Identity Not on file Sexual Orientation Not on file Plan of Treatment Health Maintenance Due Date Last Done Comments HIV SCREENING 2005 HEPATITIS C SCREENING 10/24/2008 DTAP/TDAP/TD VACCINES (1 - Tdap) 2009 HEPATITIS B VACCINE (1 of 3 - 19+ 3-dose series) 2009 PAP SMEAR 10/30/2011 HPV VACCINE (1 - 3-dose SCDM series) 2017 DEPRESSION SCREENING 07/28/2024 COVID-19 VACCINE ( - 2024-2 6 season) 2025 INFLUENZA VACCINE (#1) 2025 ZOSTER VACCINE (1 of 2) 2040 HIB VACCINE Aged Out No longer eligi ble based on patient's age to complete this topic MENINGOCOCCAL (Group B) VACC INE SHARED DECISION-MAKING Aged Out No longer eligibl e based on patient's age to complete this topic MENINGOCOCCAL GROUPS A/C/Y/W VACCINE Aged Out No longer eligible b ased on patient's age to complete this topic PNEUMOCOCCAL VACCINE Aged Out No long er eligible based on patient's age to complete this topic [place] [address] [place] [address] * Guarantor: ROSSY ROGER Account Type Relation to Patient Date of Phone Billing Address Personal/Family [address] [place] [phone] [facility] SELF PAY NO INSURANCE Member Subscriber Plan / Payer (Ef fective for All Dates) Name:Rossy Roger Member ID:Not on file Relation to Subscriber:Not on file Name:ROSSY ROGER Subscriber ID:Not on file Address: [address] [place] [phone] Payer ID:Not on file Group ID:Not on file Type:Self Pay Address: [place], [place] * Guarantor: ROSSY ROGER Account Type Relation to Patient Date of Phone Billing Address Personal/Family [address] [place] [phone] [facility] SELF PAY NO INSURANCE Member Subscriber Plan / Payer (Ef fective for All Dates) Name:RogerKatie ybarrasaba Pérez Member ID:Not on file Relation to Subscriber:Not on file Name:ROGERKATIE YBARRAYN Subscriber ID:Not on file Address: [address] [place] [phone] Payer ID:Not on file Group ID:Not on file Type:Self Pay Address: [place], [place] * Guarantor: ROSSY ROGER Account Type Relation to Patient Date of Phone Billing Address Personal/Family [address] [place] [phone] [facility] SELF PAY NO INSURANCE Member Subscriber Plan / Payer (Ef fective for All Dates) Name:RogerRossy Member ID:Not on file Relation to Subscriber:Not on file Name:ROSSY ROGER Subscriber ID:Not on file Address: [address] [place] [phone] Payer ID:Not on file Group ID:Not on file Type:Self Pay Address: [place], [place] Care Teams Ending Machine Operator Relationship Specialty Start Date End Date Sona John APRN-CNP [address] [place] [address] [facility] - General 10/12/21
== END 2025-07-11 14:14 | disposition home or self-care (01) ==
PROVIDERS: Emergency Provider Registered Nurse; PCP Nurse Practitioner Family
DX: J02.0 Streptococcal pharyngitis (principal); Z20.822 Contact with and (suspected) exposure to COVID-19; R73.03 Prediabetes
CPT/HCPCS: 87426; 87804; 87880; 99213; G0463